=== PATIENT | female | born 1970 | race Caucasian/White ===

== ENCOUNTER → 2018-06-30 16:50 | Outpatient (CLI) | payer OTHER, SELFPAY ==
--- NOTE | 2018-06-30 16:56 | BI_ITS ---
MAMMOGRAPHY - BILATERAL SCREENING REASON FOR EXAM: Female, 48 years old. Routine annual screening examination. PERTINENT HISTORY: Aunt with breast cancer. Bilateral breast implants. TECHNIQUE: Digital bilateral breast swetha (3D mammographic acquisition) in the CC and MLO projections. 2-D mediolateral oblique (MLO) and craniocaudad (CC) views of both breasts were obtained. CAD: Full Field Digital Mammography with Computer Added Detection was performed. COMPARISON: Comparison is made with prior outside examination from October 25, 2016. FINDINGS: Breast Composition: The breasts are heterogeneously dense, which may obscure small masses. There are no dominant masses or suspicious calcifications. Bilateral breast implants are seen. These are new as compared to prior study. No other significant abnormalities are identified. BI/SCREENING MAMM (CAD), BILAT IMPRESSION: Stable bilateral screening mammogram. Yearly follow-up mammogram recommended. (A) ASSESSMENT CATEGORY: BIRADS Category 2: Benign. A letter regarding these results will be sent to the patient by the facility within 30 days. Approximately 10% of breast cancers are not detected by mammography. A normal mammogram should not delay biopsy of a clinically suspicious abnormality. [id number] Electronically Signed: Roland Goyal MD at 14:47 EST Tel [phone], Service support ,
--- OUTSIDE RECORDS SUMMARY | 2018-08-26 09:22 | XMS RPT_ITS ---
:1970 Author Organization [facility] Care Team Providers Name Role Phone MERY KATT Referring Unavailable Xiomara Bryant Attending Unavailable Ras Mukherjee Referring Unavailable MilfordXiomara Attending Unavailable AnnetteXiomara Referring Unavailable MilfordXiomara Attending Unavailable Xiomara Bryant Referring Unavailable Ras Mukherjee Primary Care Unavailable PROBLEMS PROBLEMS DATE TYPE CONDITION / CODE ATTENDING STATUS SOURCE 07/15/2018 Unknown Z12.4 - Xiomara Bryant Active [place] Encounter for Community screening for Hospital malignant Repository neoplasm of cervix / Z12.4(ICD-10) 07/01/2018 Active Other chest pain NA Active 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 [place] [address] OFFICE VISIT Date of Service: 07/15/18 MR#: [id number] Acct: [id number] Name: LISHA MCFARLAND Rep #: [id number] : 1970 Provider: KSENIA Bryant Age/Sex: 48/F Location: [facility] [place] Status: Signed Intake Vital Signs07/15/18 Height 5 ft 2 in 07/15/18 Weight: 131 lb 8 oz 07/15/18 Body Mass Index (BMI) 24.0 07/15/18 Blood Pressure 112/60 Intake Visit Reasons: ANNUAL Chief Complaint: NEW annual Four Slide Operator Required: No Is patient in pain?: No Allergies No Known Allergies Allergy (Unverified 07/15/18 08:16) Medications fexofenadine 180 mg tablet 180 mg PO DAILY 07/15/18 [History Confirmed 07/15/18] montelukast 10 mg tablet 10 mg PO QPM 07/15/18 [History Confirmed 07/15/18] Is last menstrual period known: No Post menopausal: No Patient : No : No PFSH Surgical History uterine ablation (Acute) Family History Father Heart disease Grandmother Colon cancer Unknown Breast cancer Social History Smoking Status: Never smoker alcohol intake: current details: social substance use type: does not use caffeine: Yes what type of physical activity do you participate in: walking seatbelt use: always do you feel safe at home: Yes additional social history: [employer] Patient works at [employer] Pregancy History 2 Elective abortions Hx Para 2 Spontaneous abortions Past Pregnancies Del. DateName GA/Weeks Outcome Route Bth WeighInfant GeLabor LgtAnesthesiDel LocatProvider FOB t n h a n HPI ANNUAL: Details: LISHA MCFARLAND is a 48 year old who presents for new patient annual exam. Had ablation about 6 year ago, continued with very light monthly menses but now no bleeding >1 year. Started with hotflashes and night sweats, started advocare Formula W 2 months ago and no longer having them. OTC lubricant with intercourse prn and beneficial. and denies STD concerns Some arthritic symptoms hands and feet, not every day, mild. Last PAP: unsure History of abnormal PAP: no Last mammogram: 07/01/18 History of abnormal mammogram: no Colon cancer screening: no Female Reproductive History Questions: Metorrhagia: No, Sexually active: Yes, Dyspareunia: No, PCB: No Menopausal Symptoms: Yes hot flashes, Yes night sweats ROS Const Constitutional: Reports night sweats Cardio Card: Denies chest pain Resp Resp: Denies cough or shortness of breath with activity GI GI: Denies abdominal pain, constipation, change in stools, vomiting or bloating : Reports hot flashes Exam Const General: cooperative, healthy appearing, no acute distress, well developed Orientation: alert, oriented to person, oriented to place HENNJ Head: normal to inspection Neck Neck: normal visual inspection Thyroid: thyroid normal Lymphatic: no lymphadenopathy noted Chest Breast inspection: normal inspection of the breasts, normal inspection of the axillae Breast palpation: normal palpation of the breasts, normal palpation of the axillae, no axillary lymphadenopathy Resp Effort AND Inspection: normal respiratory effort GI Palpation: soft, nontender, no masses Rectal Exam: deferred External Female Exam: normal external appearance, normal appearance of the urethra Urethra: normal appearance of the urethra, normal palpation Speculum Exam - Vagina: normal appearance of the vagina, normal vaginal discharge Speculum Exam - Cervix: normal appearance of the cervix Bimanual Exam- Vagina AND Uterus: normal bimanual exam, uterine size normal, uterine shape normal, uterus non-tender Bimanual Exam- Adnexa, other: normal adnexae, no adnexal masses, adnexae non-tender, pelvic support normal Pelvic Support: normal Neuro General: alert, oriented x3 Psych Affect: normal affect Assessment AND Plan Problems 1. Encounter for gynecological examination without abnormal finding Z01.419 2. Menopausal and female climacteric states N95.1 3. Pap smear for cervical cancer screening Z12.4 Plan Completed breast and pelvic exam Reviewed diet and exercise Pap thin prep pap with HPV Mammogram recent I will research ingredients of Formula W and call with any concerns Discussed night sweat triggers. RTO 1 year, prn with problems Xiomara Bryant CNP Coding Level of Care Code Off vis,new,prev 40-64yrs Diagnoses Encounter for gynecological examination without abnormal finding Z01.419 Gynecological examination findings: abnormal findings ABSENT Menopausal and female climacteric states N95.1 Pap smear for cervical cancer screening Z12.4 07/15/18 0915 <Electronically signed by Xiomara Bryant CATERING OPERATIONS MANAGER-C> Date Xiomara Bryant CATERING OPERATIONS MANAGER-C Cosigner Signature: Date (if applicable) CC: PAP IG HPV APTIMA Collected: 07/15/2018 Status: F Source: [place] 16/18,45 8:15 AM [facility] REPOSITORY Order Comment: CYTOLOGY INFORMATION: - CLINICAL INFORMATION: ANNUAL - DATE LMP/MENOPAUSE: - COLLECTION VIAL: Thin Prep Vial - STATISTICIAN THEORETICAL SOURCE: CERVICAL - COLLECTION TECHNIQUE: BRUSH/SPATULA Specimen Comment: [id number] Specimen Comment: Source.............Cervix Specimen Comment: No. of containers..01 ThinPrep Vial TYPE CODE TESTS RESULT OUT OF RANGE REFERENCE UNITS LAB L7400.0800 . Normal DIAGN Comment Result Comment: NEGATIVE FOR INTRAEPITHELIAL LESION AND MALIGNANCY. LAB L7400.0900 . Normal ADEQ Comment Result Comment: Satisfactory for evaluation. No endocervical component is identified. LAB L7400.1400 . Normal PERFORM Comment Result Comment: Katt Gonzalez, Teaching Fellow (ASCP) LAB L7400.2575 . Normal TEST METHOD Comment Result Comment: This liquid based ThinPrep(R) pap test was screened with the use of an image guided system. LAB L7400.2600 . Normal . COMM LAB L7400.2700 . Normal PAPSMR Comment Result Comment: The Pap smear is a screening test designed to aid in the detection of premalignant and malignant conditions of the uterine cervix. It is not a diagnostic procedure and should not be used as the sole means of detecting cervical cancer. Both false-positive and false-negative reports do occur. LAB L7400.2760 Negative Normal HPV APTIMA, Negative HR Result Comment: This test detects fourteen high-risk HPV types (16/18/31/33/35/39/45/ 51/52/56/58/59/66/68) without differentiation. Performed at: [address] [id number] Field Clinical Engineer: Rubina Bah MD, Phone: [phone] Performed at: =G - [facility] [place] [address] [place] [id number] Field Clinical Engineer: Rubina Bah MD, Phone: [phone] Performed By: #### L7400.0280 #### [facility] (refer to report for specific site) refer to report for address and phone number PROGRESS Observed: 07/01/2018 Status: COMPLETED Source: [place] 12:52 PM [facility] REPOSIT[facility] HNO ID: [id number] Author: Katt Giang Service: (none) Author Type: Nurse Practitioner Type: Progress Notes Filed: 07/01/2018 12:55 PM Note Text: Subjective HPI Pt presents with c/o increase chest tightness today while working out at gym. Has had URI sx for about a week. Also hx of asthma. Has been using maintenance inhalers, ran out of albuterol and inhaled steroid. Cough is frequent, moist, nonproductive. +wheezing. Denies fever, chills, myalgias, dyspnea. Review of Systems Constitutional: Negative for chills and fever. HENT: Negative for congestion, ear pain, sinus pain and sore throat. Respiratory: Positive for cough and wheezing. Negative for hemoptysis, sputum production and shortness of breath. Cardiovascular: Negative for chest pain. Objective Physical Exam Constitutional: She is oriented to person, place, and time and well-developed, well-nourished, and in no distress. No distress. HENT: Head: Normocephalic. Right Ear: Hearing, tympanic membrane, external ear and ear canal normal. Left Ear: Hearing, tympanic membrane, external ear and ear canal normal. Nose: Nose normal. Right sinus exhibits no maxillary sinus tenderness and no frontal sinus tenderness. Left sinus exhibits no maxillary sinus tenderness and no frontal sinus tenderness. Mouth/Throat: Uvula is midline, oropharynx is clear and moist and mucous membranes are normal. No oropharyngeal exudate. Eyes: Pupils are equal, round, and reactive to light. Conjunctivae are normal. Right eye exhibits no discharge. Left eye exhibits no discharge. Neck: Neck supple. Cardiovascular: Normal rate, regular rhythm and normal heart sounds. Exam reveals no gallop and no friction rub. No murmur heard. Pulmonary/Chest: Effort normal. No accessory muscle usage. No respiratory distress. She has decreased breath sounds (Good air movement throughout. Pulse ox 98%). She has no wheezes. She has no rhonchi. She has no rales. Lymphadenopathy: She has no cervical adenopathy. Neurological: She is alert and oriented to person, place, and time. Skin: Skin is warm and dry. She is not diaphoretic. BP 102/70 Pulse 71 Temp 36.4 ?C (97.6 ?F) (Tympanic) Resp 18 Wt 59.6 kg (131 lb 6.4 oz) SpO2 97% BMI 24.43 kg/m? .Patient presents with: cough, congestion and SOB: x 1 week-breathing is worse this am PAST MEDICAL HISTORY Diagnosis Date - Anxiety - Asthma - Kidney stones 2011 still 3 remaining, [facility] - Seasonal allergies PAST SURGICAL HISTORY Procedure Laterality Date - OFFICE ENDOMETRIAL ABLATION 01/2012 novasure ablation [facility] [place] ALLERGIES Seasonal Allergies MEDICATIONS fexofenadine HCl (MAYRA 60 MG CAP) Take 1 capsule by mouth once daily. fluticasone (FLONASE) 50 mcg/actuation nasal spray Use 2 Sprays in each nostril once daily. Rinse mouth after use. fluticasone-salmeterol (ADVAIR) 100-50 mcg/dose dsdv Inhale 1 Puff as instructed twice daily. montelukast (SINGULAIR) 10 mg tablet Take 1 tablet by mouth daily at bedtime. albuterol HFA (PROAIR HFA) 90 mcg/actuation inhaler Inhale 2 Puffs as instructed every 4 hours as needed. albuterol HFA (PROVENTIL HFA, VENTOLIN HFA) 90 mcg/actuation inhaler Inhale 2 Puffs as instructed every 6 hours as needed for Wheezing/Shortness of Breath. fluticasone (FLOVENT HFA) 110 mcg/actuation inhaler Inhale 2 Puffs as instructed twice daily. Inhalational Spacing Device spcr 1 Device one time only for 1 dose. predniSONE (DELTASONE) 20 mg tablet Take 2 tablets by mouth once daily for 5 days. Take daily with food. benzonatate (TESSALON PERLE) 100 mg capsule Take 1 capsule by mouth three times daily as needed. guaiFENesin (MUCINEX) 600 mg 12 hr tablet Take 2 tablets by mouth twice daily. benzonatate (TESSALON PERLE) 100 mg capsule Take 2 capsules by mouth three times daily as needed. FAMILY HISTORY Problem Relation Age of Onset - Stroke Father - other (Brain Tumor [Other]) Father Social History Substance Use Topics - Smoking status: Never Smoker - Smokeless tobacco: Never Used - Alcohol use Yes Comment: 2 0r 3 glasses wine or beer a week ASSESSMENT/PLAN: 1. Bronchitis - ICD9: 490, ICD10: J40 (primary diagnosis) - PREDNISONE 20 MG TABLET - BENZONATATE 100 MG CAPSULE - GUAIFENESIN ER 600 MG TABLET, EXTENDED RELEASE 12 HR 2. Chest tightness - ICD9: 786.59, ICD10: R07.89 - XR CHEST 2V FRONTAL/LAT No acute process. 3. Mild intermittent asthma in adult without complication - ICD9: 493.90, ICD10: J45.20 - Albuterol MDI 2 puffs with spacer beginning with URI's TID x 5 days then prn, Instructed if using >2 times per week when well to set up appointment for further evaluation - Avoidance of triggers recommended - ALBUTEROL SULFATE HFA 90 MCG/ACTUATION AEROSOL INHALER - FLUTICASONE 110 MCG/ACTUATION HFA AEROSOL INHALER - INHALATIONAL SPACING DEVICE The patient is instructed to return or seek emergency treatment if symptoms become worse or with any acute change in condition. The patient verbalizes understanding and is in agreement with plan of care. Katt Giang CNP XR CHEST 2V FRONTAL/LAT Observed: 07/01/2018 Status: F Source: [place] 8:23 AM [facility] REPOSITORY * * *Final Report* * * DATE OF EXAM: Jul 01 2018 8:23AM WOX [id number] - XR CHEST 2V FRONTAL/LAT / PROCEDURE REASON: Chest tightness * * * * Physician Interpretation * * * * EXAMINATION: CHEST RADIOGRAPH (2 VIEW FRONTAL and LATERAL) CLINICAL HISTORY: Chest tightness MQ: XC2_5 Comparison: None RESULT: Lines, tubes, and devices: None. Lungs and pleura: No consolidation. No lung mass. No pleural effusion. Cardiomediastinal silhouette: Normal cardiomediastinal silhouette. Other: . IMPRESSION: No acute radiographic abnormality. Fiberglass Model Maker: ÁNGEL Transcribe Date/Time: Jul 01 2018 8:26A Dictated by : JAUN MCMAHON MD This examination was interpreted and the report reviewed and electronically signed by: JAUN MCMAHON MD on Jul 01 2018 8:26AM EST [id number] PROGRESS Observed: 07/01/2018 Status: COMPLETED Source: [place] 8:13 AM [facility] REPOSITORY HNO ID: [id number] Author: Chhaya Winchester (Rt) Esteban Duran Service: (none) Author Type: Polymerization Helper Type: Progress Notes Filed: 07/01/2018 8:23 AM Note Text: Radiology Service Progress Note PATIENT NAME: Lisha Mcfarland DATE OF SERVICE: July 01, 2018 TIME: 8:13 AM PATIENT IDENTITY VERIFICATION COMPLETED USING TWO (2) METHODS: Patient confirmed name verbally and Date of . PATIENT GENDER DATA: Female. status: : No status: NO. PATIENT RELEVANT IMPLANT DATA REVIEWED: Not Applicable RADIOLOGY DEPARTMENT: General X-ray: Exam(s) Completed: Chest X-Ray PERIPHERAL IV DATA: Not applicable SIGNED BY: RT Jm July 01, 2018 8:13 AM CNOV Observed: 07/01/2018 Status: COMPLETED Source: [place] 7:45 AM [facility] REPOSITORY [facility] LISHA MCFARLAND ([id number]) 1970 F Date Time Provider Department 07/01/18 7:45 AM KATT GIANG [facility] During your visit today, we recorded the following information about you: Temperature Pulse Respiration Blood pressure 97.6 degrees 71/minute 18/minute 102/70 Weight 59.6 kg Katt Giang APRN.STATUS CONTROLLER 07/01/2018 8:12 AM Signed [facility] PATIENT INFO BRONCHITIS OVERVIEW Bronchitis develops when there is swelling and irritation of the bronchi, the large tubes that carry air to the lungs. There are two types of bronchitis: acute (sudden onset) and chronic (long-standing). Acute bronchitis often occurs with a viral infection, such as the common cold, and is sometimes called a chest cold. The most common symptom of acute bronchitis is a nagging cough. Treatment of acute bronchitis usually involves treating the symptoms, such as sore throat and congestion. Antibiotics do not help to eliminate acute bronchitis caused by a virus. Antiviral agents are useful in some cases of acute bronchitis due to influenza, but there are antiviral agents for other forms of viral bronchitis. BRONCHITIS CAUSES Most cases of bronchitis are caused by a viral infection of the upper airways, such as the common cold or the flu. Less commonly, a bacterium such as pertussis (whooping cough) is the cause. BRONCHITIS SYMPTOMS The most common symptoms of acute bronchitis include: ? A persistent cough; this may last 10 to 20 days ? Some people cough up mucus, which may be clear, yellow, or green in color Fever is not common in people with acute bronchitis. However, having a fever can be a sign of another condition, such as the flu or pneumonia. Conditions with similar features ? There are other conditions that have symptoms similar to those of acute bronchitis. ? Chronic cough ? A persistent cough that lasts more than eight weeks is considered a chronic cough, which is discussed in detail elsewhere. ? Chronic bronchitis ? Chronic bronchitis is defined as a cough that occurs on most days of the month for at least three months of the year during two consecutive years. ? Pneumonia ? Signs of pneumonia include fever and a fast heart and breathing rate. ? Postnasal drip ? Postnasal drip occurs when secretions drain from the sinuses into the throat. This can cause the throat to feel irritated, which causes you to feel like you need to clear your throat frequently. Postnasal drip can be caused by the common cold, allergies, sinusitis, or environmental irritants. BRONCHITIS DIAGNOSIS Most people who have a persistent cough after an upper respiratory infection (cold) do not need to see a healthcare provider. Diagnostic testing, such as x-rays, cultures, and blood tests, are not usually needed for people with acute bronchitis. However, testing may be recommended if your diagnosis is not clear based upon your examination or if another condition, such as pneumonia, is suspected. When to seek help ? You should call your healthcare provider if you have any of the following: ? Fever (temperature greater than 100.4? F or 38? C) ? A cough that lasts longer than 10 days ? Chest pain with coughing, difficulty breathing, or coughing up blood ? A barking cough that makes it hard to speak, especially if it persists ? Cough accompanied by unexplained weight loss People who are older than 75 do not always have a fever or other concerning symptoms. If you are over 75 years and you have a persistent cough, you should call your clinician to determine if and when an office visit is recommended. BRONCHITIS TREATMENT Relief of symptoms ? There is no specific treatment for bronchitis, but there are a few treatments available for the common cold. ? A nonsteroidal antiinflammatory drug (ibuprofen, naproxen), aspirin, or acetaminophen (Tylenol?) can help to relieve the pain of a sore throat or headache. ? Pseudoephedrine is a decongestant that can improve nasal congestion. Most drugstores in the [place] carry pseudoephedrine behind the counter, so you must ask for it from the pharmacist (a prescription is not required). Other decongestants, such as phenylephrine, are not as effective as pseudoephedrine. Antihistamines such as diphenhydramine (Benadryl?) may also help, but can cause side effects such as drowsiness and drying of the eyes, nose, and mouth. ? Heated, humidified, air can improve symptoms of nasal congestion and runny nose, and has few to no side effects. ? Cough suppressants such as dextromethorphan may be helpful. Antibiotics ? Antibiotics are NOT helpful for most people with bronchitis since the illness is typically caused by a virus. Antibiotics treat bacterial, not viral infections. Antibiotics may be helpful for some patients with other chronic diseases. Many people request antibiotics in the hopes that it will get rid of the cough, and some people even think that antibiotics have helped on previous occasions. However, there is no benefit of antibiotics for most cases of bronchitis. PREVENTING THE SPREAD OF ILLNESS Hand washing is an essential and highly effective way to prevent the spread of infection. Wet your hands with water and plain soap and rub them together for 15 to 30 seconds. Pay special attention to the fingernails, between the fingers, and the wrists. Rinse your hands thoroughly, and dry with a single use towel. Alcohol-based hand rubs are a good alternative for disinfecting hands if a sink is not available. Spread the hand rub over the entire surface of your hands, fingers, and wrists until dry. You can use hand rubs repeatedly without irritating the skin or losing effectiveness. Hand rubs are available as a liquid or wipe in small, portable sizes that are easy to carry in a pocket or handbag. When a sink is available, you should wash visibly soiled hands with soap and water. Wash your hands before preparing food and eating, and after going to the bathroom, and after coughing, blowing the nose, or sneezing. While it is not always possible to limit contact with people who are ill, avoid touching your eyes, nose, or mouth after direct contact, when possible. In addition, use a tissue to cover your mouth when sneezing or coughing. Throw away used tissues promptly and then wash your hands. Sneezing/coughing into the sleeve of your clothing (at the inner elbow) is another way of containing sprays of saliva and secretions and does not contaminate your hands. Sneezing and coughing without covering your mouth can spread infection to anyone within 6 feet. Katt Giang APRN.STATUS CONTROLLER 07/01/2018 12:55 PM Signed Subjective HPI Pt presents with c/o increase chest tightness today while working out at gym. Has had URI sx for about a week. Also hx of asthma. Has been using maintenance inhalers, ran out of albuterol and inhaled steroid. Cough is frequent, moist, nonproductive. +wheezing. Denies fever, chills, myalgias, dyspnea. Review of Systems Constitutional: Negative for chills and fever. HENT: Negative for congestion, ear pain, sinus pain and sore throat. Respiratory: Positive for cough and wheezing. Negative for hemoptysis, sputum production and shortness of breath. Cardiovascular: Negative for chest pain. Objective Physical Exam Constitutional: She is oriented to person, place, and time and well-developed, well-nourished, and in no distress. No distress. HENT: Head: Normocephalic. Right Ear: Hearing, tympanic membrane, external ear and ear canal normal. Left Ear: Hearing, tympanic membrane, external ear and ear canal normal. Nose: Nose normal. Right sinus exhibits no maxillary sinus tenderness and no frontal sinus tenderness. Left sinus exhibits no maxillary sinus tenderness and no frontal sinus tenderness. Mouth/Throat: Uvula is midline, oropharynx is clear and moist and mucous membranes are normal. No oropharyngeal exudate. Eyes: Pupils are equal, round, and reactive to light. Conjunctivae are normal. Right eye exhibits no discharge. Left eye exhibits no discharge. Neck: Neck supple. Cardiovascular: Normal rate, regular rhythm and normal heart sounds. Exam reveals no gallop and no friction rub. No murmur heard. Pulmonary/Chest: Effort normal. No accessory muscle usage. No respiratory distress. She has decreased breath sounds (Good air movement throughout. Pulse ox 98%). She has no wheezes. She has no rhonchi. She has no rales. Lymphadenopathy: She has no cervical adenopathy. Neurological: She is alert and oriented to person, place, and time. Skin: Skin is warm and dry. She is not diaphoretic. BP 102/70 Pulse 71 Temp 36.4 ?C (97.6 ?F) (Tympanic) Resp 18 Wt 59.6 kg (131 lb 6.4 oz) SpO2 97% BMI 24.43 kg/m? .Patient presents with: cough, congestion and SOB: x 1 week-breathing is worse this am PAST MEDICAL HISTORY Diagnosis Date - Anxiety - Asthma - Kidney stones 2011 still 3 remaining, [facility] - Seasonal allergies PAST SURGICAL HISTORY Procedure Laterality Date - OFFICE ENDOMETRIAL ABLATION 01/2012 novasure ablation [facility] ALLERGIES Seasonal Allergies MEDICATIONS fexofenadine HCl (MAYRA 60 MG CAP) Take 1 capsule by mouth once daily. fluticasone (FLONASE) 50 mcg/actuation nasal spray Use 2 Sprays in each nostril once daily. Rinse mouth after use. fluticasone-salmeterol (ADVAIR) 100-50 mcg/dose dsdv Inhale 1 Puff as instructed twice daily. montelukast (SINGULAIR) 10 mg tablet Take 1 tablet by mouth daily at bedtime. albuterol HFA (PROAIR HFA) 90 mcg/actuation inhaler Inhale 2 Puffs as instructed every 4 hours as needed. albuterol HFA (PROVENTIL HFA, VENTOLIN HFA) 90 mcg/actuation inhaler Inhale 2 Puffs as instructed every 6 hours as needed for Wheezing/Shortness of Breath. fluticasone (FLOVENT HFA) 110 mcg/actuation inhaler Inhale 2 Puffs as instructed twice daily. Inhalational Spacing Device spcr 1 Device one time only for 1 dose. predniSONE (DELTASONE) 20 mg tablet Take 2 tablets by mouth once daily for 5 days. Take daily with food. benzonatate (TESSALON PERLE) 100 mg capsule Take 1 capsule by mouth three times daily as needed. guaiFENesin (MUCINEX) 600 mg 12 hr tablet Take 2 tablets by mouth twice daily. benzonatate (TESSALON PERLE) 100 mg capsule Take 2 capsules by mouth three times daily as needed. FAMILY HISTORY Problem Relation Age of Onset - Stroke Father - other (Brain Tumor [Other]) Father Social History Substance Use Topics - Smoking status: Never Smoker - Smokeless tobacco: Never Used - Alcohol use Yes Comment: 2 0r 3 glasses wine or beer a week ASSESSMENT/PLAN: 1. Bronchitis - ICD9: 490, ICD10: J40 (primary diagnosis) - PREDNISONE 20 MG TABLET - BENZONATATE 100 MG CAPSULE - GUAIFENESIN ER 600 MG TABLET, EXTENDED RELEASE 12 HR 2. Chest tightness - ICD9: 786.59, ICD10: R07.89 - XR CHEST 2V FRONTAL/LAT No acute process. 3. Mild intermittent asthma in adult without complication - ICD9: 493.90, ICD10: J45.20 - Albuterol MDI 2 puffs with spacer beginning with URI's TID x 5 days then prn, Instructed if using >2 times per week when well to set up appointment for further evaluation - Avoidance of triggers recommended - ALBUTEROL SULFATE HFA 90 MCG/ACTUATION AEROSOL INHALER - FLUTICASONE 110 MCG/ACTUATION HFA AEROSOL INHALER - INHALATIONAL SPACING DEVICE The patient is instructed to return or seek emergency treatment if symptoms become worse or with any acute change in condition. The patient verbalizes understanding and is in agreement with plan of care. Katt Giang CNP Referring Provider: SELF [[id number]] Allergies As of Date: 07/01/2018 Noted Allergy Reaction SEASONAL ALLERGIES 05/15/2018 14 - Other: See Comments Comments: Sneezing, SOB Date Reviewed: 07/01/2018 Reviewed by: Melissa Daniels LPN - Fully Assessed Reason for Visit: cough, congestion and SOB [Other] Cmt: x 1 week-breathing is worse this am Primary Visit Diagnosis:Bronchitis [J40] Other Visit Diagnoses:Chest tightness [R07.89] Mild intermittent asthma in adult without complication [J45.20] Order(s):albuterol HFA (PROVENTIL HFA, VENTOLIN HFA) 90 mcg/actuation inhalerInhale 2 Puffs as instructed every 6 hours as needed for Wheezing/Shortness of Breath.Disp: 1 InhalerRfl: 0 fluticasone (FLOVENT HFA) 110 mcg/actuation inhalerInhale 2 Puffs as instructed twice daily.Disp: 1 InhalerRfl: 5 XR CHEST 2V FRONTAL/LAT [[id number]] Order #: [id number] FUTURE Inhalational Spacing Device spcr1 Device one time only for 1 dose.Disp: 1 EachRfl: 0 predniSONE (DELTASONE) 20 mg tabletTake 2 tablets by mouth once daily for 5 days. Take daily with food.Disp: 10 tabletRfl: 0 benzonatate (TESSALON PERLE) 100 mg capsuleTake 1 capsule by mouth three times daily as needed.Disp: 60 capsuleRfl: 0 guaiFENesin (MUCINEX) 600 mg 12 hr tabletTake 2 tablets by mouth twice daily.Disp: 30 tabletRfl: 0 Prescriptions as of 07/01/2018 Sig: MAYRA 60 MG CAP Take 1 capsule by mouth once * FLUTICASONE 50 MCG/ACTUATION * Use 2 Sprays in each nostril * FLUTICASONE 100 MCG-SALMETERO* Inhale 1 Puff as instructed t* MONTELUKAST 10 MG TABLET Take 1 tablet by mouth daily * ALBUTEROL SULFATE HFA 90 MCG/* Inhale 2 Puffs as instructed * ALBUTEROL SULFATE HFA 90 MCG/* Inhale 2 Puffs as instructed * FLUTICASONE 110 MCG/ACTUATION* Inhale 2 Puffs as instructed * INHALATIONAL SPACING DEVICE 1 Device one time only for 1 * PREDNISONE 20 MG TABLET Take 2 tablets by mouth once * BENZONATATE 100 MG CAPSULE Take 1 capsule by mouth three* GUAIFENESIN ER 600 MG TABLET,* Take 2 tablets by mouth twice* BENZONATATE 100 MG CAPSULE Take 2 capsules by mouth thre* Patient not taking: Reported on 12/07/2017 Problem List As Of Date 07/01/2018 Noted Resolved Asthma in adult [J45.909] INVALID FOR* Allergic rhinitis [J30.9] INVALID FOR* Anxiety [F41.9] INVALID FOR* Mood swings [R45.86] INVALID FOR* Other instructions from your clinician: EXPRESS CARE PATIENT INFO BRONCHITIS OVERVIEW Bronchitis develops when there is swelling and irritation of the bronchi, the large tubes that carry air to the lungs. There are two types of bronchitis: acute (sudden onset) and chronic (long-standing). Acute bronchitis often occurs with a viral infection, such as the common cold, and is sometimes called a chest cold. The most common symptom of acute bronchitis is a nagging cough. Treatment of acute bronchitis usually involves treating the symptoms, such as sore throat and congestion. Antibiotics do not help to eliminate acute bronchitis caused by a virus. Antiviral agents are useful in some cases of acute bronchitis due to influenza, but there are antiviral agents for other forms of viral bronchitis. BRONCHITIS CAUSES Most cases of bronchitis are caused by a viral infection of the upper airways, such as the common cold or the flu. Less commonly, a bacterium such as pertussis (whooping cough) is the cause. BRONCHITIS SYMPTOMS The most common symptoms of acute bronchitis include: ? A persistent cough; this may last 10 to 20 days ? Some people cough up mucus, which may be clear, yellow, or green in color Fever is not common in people with acute bronchitis. However, having a fever can be a sign of another condition, such as the flu or pneumonia. Conditions with similar features ? There are other conditions that have symptoms similar to those of acute bronchitis. ? Chronic cough ? A persistent cough that lasts more than eight weeks is considered a chronic cough, which is discussed in detail elsewhere. ? Chronic bronchitis ? Chronic bronchitis is defined as a cough that occurs on most days of the month for at least three months of the year during two consecutive years. ? Pneumonia ? Signs of pneumonia include fever and a fast heart and breathing rate. ? Postnasal drip ? Postnasal drip occurs when secretions drain from the sinuses into the throat. This can cause the throat to feel irritated, which causes you to feel like you need to clear your throat frequently. Postnasal drip can be caused by the common cold, allergies, sinusitis, or environmental irritants. BRONCHITIS DIAGNOSIS Most people who have a persistent cough after an upper respiratory infection (cold) do not need to see a healthcare provider. Diagnostic testing, such as x-rays, cultures, and blood tests, are not usually needed for people with acute bronchitis. However, testing may be recommended if your diagnosis is not clear based upon your examination or if another condition, such as pneumonia, is suspected. When to seek help ? You should call your healthcare provider if you have any of the following: ? Fever (temperature greater than 100.4? F or 38? C) ? A cough that lasts longer than 10 days ? Chest pain with coughing, difficulty breathing, or coughing up blood ? A barking cough that makes it hard to speak, especially if it persists ? Cough accompanied by unexplained weight loss People who are older than 75 do not always have a fever or other concerning symptoms. If you are over 75 years and you have a persistent cough, you should call your clinician to determine if and when an office visit is recommended. BRONCHITIS TREATMENT Relief of symptoms ? There is no specific treatment for bronchitis, but there are a few treatments available for the common cold. ? A nonsteroidal antiinflammatory drug (ibuprofen, naproxen), aspirin, or acetaminophen (Tylenol?) can help to relieve the pain of a sore throat or headache. ? Pseudoephedrine is a decongestant that can improve nasal congestion. Most drugstores in the [place] carry pseudoephedrine behind the counter, so you must ask for it from the pharmacist (a prescription is not required). Other decongestants, such as phenylephrine, are not as effective as pseudoephedrine. Antihistamines such as diphenhydramine (Benadryl?) may also help, but can cause side effects such as drowsiness and drying of the eyes, nose, and mouth. ? Heated, humidified, air can improve symptoms of nasal congestion and runny nose, and has few to no side effects. ? Cough suppressants such as dextromethorphan may be helpful. Antibiotics ? Antibiotics are NOT helpful for most people with bronchitis since the illness is typically caused by a virus. Antibiotics treat bacterial, not viral infections. Antibiotics may be helpful for some patients with other chronic diseases. Many people request antibiotics in the hopes that it will get rid of the cough, and some people even think that antibiotics have helped on previous occasions. However, there is no benefit of antibiotics for most cases of bronchitis. PREVENTING THE SPREAD OF ILLNESS Hand washing is an essential and highly effective way to prevent the spread of infection. Wet your hands with water and plain soap and rub them together for 15 to 30 seconds. Pay special attention to the fingernails, between the fingers, and the wrists. Rinse your hands thoroughly, and dry with a single use towel. Alcohol-based hand rubs are a good alternative for disinfecting hands if a sink is not available. Spread the hand rub over the entire surface of your hands, fingers, and wrists until dry. You can use hand rubs repeatedly without irritating the skin or losing effectiveness. Hand rubs are available as a liquid or wipe in small, portable sizes that are easy to carry in a pocket or handbag. When a sink is available, you should wash visibly soiled hands with soap and water. Wash your hands before preparing food and eating, and after going to the bathroom, and after coughing, blowing the nose, or sneezing. While it is not always possible to limit contact with people who are ill, avoid touching your eyes, nose, or mouth after direct contact, when possible. In addition, use a tissue to cover your mouth when sneezing or coughing. Throw away used tissues promptly and then wash your hands. Sneezing/coughing into the sleeve of your clothing (at the inner elbow) is another way of containing sprays of saliva and secretions and does not contaminate your hands. Sneezing and coughing without covering your mouth can spread infection to anyone within 6 feet. Prescriptions ordered this encounter Disp Refills Start End ALBUTEROL SULFATE HFA 90 MCG/ACTUATI* 1 In* 0 07/01/2018 Route: INHALATION Sig: Inhale 2 Puffs as instructed every 6 hours as needed for Wheezing/Shortness of Breath. FLUTICASONE 110 MCG/ACTUATION HFA AE* 1 In* 5 07/01/2018 Route: INHALATION Sig: Inhale 2 Puffs as instructed twice daily. INHALATIONAL SPACING DEVICE 1 Ea* 0 07/01/2018 07/01/2018 [facility]: [facility] Device one time only for 1 dose. PREDNISONE 20 MG TABLET 10 t* 0 07/01/2018 07/06/2018 Route: ORAL Sig: Take 2 tablets by mouth once daily for 5 days. Take daily with food. BENZONATATE 100 MG CAPSULE 60 c* 0 07/01/2018 Route: ORAL Sig: Take 1 capsule by mouth three times daily as needed. GUAIFENESIN ER 600 MG TABLET, EXTEND* 30 t* 0 07/01/2018 Route: ORAL Sig: Take 2 tablets by mouth twice daily. Encounter Status:Closed by KATT GIANG CNP on 07/01/18 SCREENING MAMM (CAD), Observed: 06/30/2018 Status: F Source: ALIYAH BILAT 4:56 PM [facility] [place] REPOSITORY [facility] Imaging Services [address] [place] [address] SCREENING MAMM (CAD), BILAT MR#: [id number] Acct: [id number] Name: LISHA MCFARLAND Rep #: [id number] : 1970 F 48 From: Roland Goyal MD PCP: Ras Almeida DO Status: REG CLI Study: SCREENING MAMM (CAD), BILAT Date of Exam: 06/30/18 Exam# [id number] Ordering Dr: Xiomara Bryant CATERING OPERATIONS MANAGER-C MAMMOGRAPHY - BILATERAL SCREENING REASON FOR EXAM: Female, 48 years old. Routine annual screening examination. PERTINENT HISTORY: Aunt with breast cancer. Bilateral breast implants. TECHNIQUE: Digital bilateral breast swetha (3D mammographic acquisition) in the CC and MLO projections. 2-D mediolateral oblique (MLO) and craniocaudad (CC) views of both breasts were obtained. CAD: Full Field Digital Mammography with Computer Added Detection was performed. COMPARISON: Comparison is made with prior outside examination from October 25, 2016. FINDINGS: Breast Composition: The breasts are heterogeneously dense, which may obscure small masses. There are no dominant masses or suspicious calcifications. Bilateral breast implants are seen. These are new as compared to prior study. No other significant abnormalities are identified. BI/SCREENING MAMM (CAD), BILAT IMPRESSION: Stable bilateral screening mammogram. Yearly follow-up mammogram recommended. (A) ASSESSMENT CATEGORY: BIRADS Category 2: Benign. A letter regarding these results will be sent to the patient by the facility within 30 days. Approximately 10% of breast cancers are not detected by mammography. A normal mammogram should not delay biopsy of a clinically suspicious abnormality. [id number] Electronically Signed: Roland Goyal MD at 14:47 EST Tel [phone], Service support , CC: KSENIA Bryant; Ras Almeida DO Fiberglass Model Maker: Signed PROGRESS Observed: 05/15/2018 Status: COMPLETED Source: [place] 1:11 PM [facility] REPOSITORY [facility]NO ID: [id number] Author: Demetrice Bach Service: (none) Author Type: Physician Aerophysicist Type: Progress Notes Filed: 05/15/2018 1:55 PM Note Text: 05/15/2018 Patient presents with: Sinusitis: x today SUBJECTIVE: This is a 47 year old that is here today for Complaint(s) of sinus burning and pressure x this morning. + mild right ear discomfort. Eyes feel puffy this morning. Also has a hx of allergies- currently on mayra and singulair. + nasal drainage throughout the night. No new makeup, foods, products. No matting/crusting, itching, vision changes. Denies fever/chills, cough, dental pain, SOb, wheezing. PAST MEDICAL HISTORY Diagnosis Date - Anxiety - Asthma - Kidney stones 2011 still 3 remaining, [facility] - Seasonal allergies ALLERGIES Seasonal Allergies MEDICATIONS Current Outpatient Prescriptions: fexofenadine HCl (MAYRA 60 MG CAP) Take 1 capsule by mouth once daily. fluticasone-salmeterol (ADVAIR) 100-50 mcg/dose dsdv Inhale 1 Puff as instructed twice daily. montelukast (SINGULAIR) 10 mg tablet Take 1 tablet by mouth daily at bedtime. albuterol HFA (PROAIR HFA) 90 mcg/actuation inhaler Inhale 2 Puffs as instructed every 4 hours as needed. benzonatate (TESSALON PERLE) 100 mg capsule Take 2 capsules by mouth three times daily as needed. (Patient not taking: Reported on 12/07/2017 ) No current facility-administered medications for this visit. SOCIAL HISTORY Social History Marital status: Spouse name: Years of education: Number of children: Social History Main Topics Smoking status: Never Smoker Smokeless tobacco: Never Used Alcohol use: Yes Comment: 2 0r 3 glasses wine or beer a week Social History Narrative , 2 teenage daughters (Ras and Faith) REVIEW OF SYSTEMS All other reviewed and negative other than HPI. OBJECTIVE: BP 112/68 Pulse 63 Temp 36.8 ?C (98.2 ?F) (Left Tympanic) Resp 16 Wt 56.5 kg (124 lb 9.6 oz) SpO2 98% BMI 23.16 kg/m? APPEARANCE Well appearing, alert, in no acute distress, well-hydrated, well nourished. EYES PERRLA, conjunctiva and sclera normal. EARS External ears normal, canals clear. TMs normal CHRISTIN. Mild edema inferior to lower eyelids CHRISTIN. No erythema or warmth. NOSE/SINUS Nares normal. Septum midline. Mucosa normal. No drainage or sinus tenderness. THROAT normal, no erythema NECK Supple, no adenopathy; HEART RRR with normal S1 and S2, LUNG clear to auscultation, No wheezing, rhonchi, rales. ASSESSMENT/PLAN: 1. Acute maxillary sinusitis, recurrence not specified - ICD9: 461.0, ICD10: J01.00 1 day of symptoms, discussed probable viral etiology, Reviewed red flags and when to seek care sooner. - The patient should also be given OTC cough and cold meds as needed, behind the counter Pseudoephedrine, warm salt water gargles, throat lozenges and/or OTC throat spray as needed and nasal saline gtts and suction prn for the first 5-7 days of treatment. - Supportive care with plenty of fluids, rest, and analgesia prn. - Follow up in 3-5 days if symptoms persist or worsen. - FLUTICASONE 50 MCG/ACTUATION NASAL SPRAY,SUSPENSION Reviewed red flags and when to seek care sooner. The patient indicates understanding of these issues and agrees with the plan. IZZY Douglass Observed: 05/15/2018 Status: COMPLETED Source: [place] 1:00 PM [facility] REPOSITORY [facility] LISHA MCFARLAND ([id number]) 1970 F Date Time Provider Department 05/15/18 1:00 PM DEMETRICE BACH) [facility] During your visit today, we recorded the following information about you: Temperature Pulse Respiration Blood pressure 98.2 degrees 63/minute 16/minute 112/68 Weight 56.5 kg Demetrice Bach PA-C 05/15/2018 1:55 PM Signed 05/15/2018 Patient presents with: Sinusitis: x today SUBJECTIVE: This is a 47 year old that is here today for Complaint(s) of sinus burning and pressure x this morning. + mild right ear discomfort. Eyes feel puffy this morning. Also has a hx of allergies-currently on mayra and singulair. + nasal drainage throughout the night. No new makeup, foods, products. No matting/crusting, itching, vision changes. Denies fever/chills, cough, dental pain, SOb, wheezing. PAST MEDICAL HISTORY Diagnosis Date - Anxiety - Asthma - Kidney stones 2011 still 3 remaining, [facility] - Seasonal allergies ALLERGIES Seasonal Allergies MEDICATIONS Current Outpatient Prescriptions: fexofenadine HCl (MAYRA 60 MG CAP) Take 1 capsule by mouth once daily. fluticasone-salmeterol (ADVAIR) 100-50 mcg/dose dsdv Inhale 1 Puff as instructed twice daily. montelukast (SINGULAIR) 10 mg tablet Take 1 tablet by mouth daily at bedtime. albuterol HFA (PROAIR HFA) 90 mcg/actuation inhaler Inhale 2 Puffs as instructed every 4 hours as needed. benzonatate (TESSALON PERLE) 100 mg capsule Take 2 capsules by mouth three times daily as needed. (Patient not taking: Reported on 12/07/2017 ) No current facility-administered medications for this visit. SOCIAL HISTORY Social History Marital status: Spouse name: Years of education: Number of children: Social History Main Topics Smoking status: Never Smoker Smokeless tobacco: Never Used Alcohol use: Yes Comment: 2 0r 3 glasses wine or beer a week Social History Narrative , 2 teenage daughters (Ras and Faith) REVIEW OF SYSTEMS All other reviewed and negative other than HPI. OBJECTIVE: BP 112/68 Pulse 63 Temp 36.8 ?C (98.2 ?F) (Left Tympanic) Resp 16 Wt 56.5 kg (124 lb 9.6 oz) SpO2 98% BMI 23.16 kg/m? APPEARANCE Well appearing, alert, in no acute distress, well- hydrated, well nourished. EYES PERRLA, conjunctiva and sclera normal. EARS External ears normal, canals clear. TMs normal CHRISTIN. Mild edema inferior to lower eyelids CHRISTIN. No erythema or warmth. NOSE/SINUS Nares normal. Septum midline. Mucosa normal. No drainage or sinus tenderness. THROAT normal, no erythema NECK Supple, no adenopathy; HEART RRR with normal S1 and S2, LUNG clear to auscultation, No wheezing, rhonchi, rales. ASSESSMENT/PLAN: 1. Acute maxillary sinusitis, recurrence not specified - ICD9: 461.0, ICD10: J01.00 1 day of symptoms, discussed probable viral etiology, Reviewed red flags and when to seek care sooner. - The patient should also be given OTC cough and cold meds as needed, behind the counter Pseudoephedrine, warm salt water gargles, throat lozenges and/or OTC throat spray as needed and nasal saline gtts and suction prn for the first 5-7 days of treatment. - Supportive care with plenty of fluids, rest, and analgesia prn. - Follow up in 3-5 days if symptoms persist or worsen. - FLUTICASONE 50 MCG/ACTUATION NASAL SPRAY,SUSPENSION Reviewed red flags and when to seek care sooner. The patient indicates understanding of these issues and agrees with the plan. Demetrice Bach PA-C Referring Provider: SELF [200] Allergies As of Date: 05/15/2018 Noted Allergy Reaction SEASONAL ALLERGIES 05/15/2018 14 - Other: See Comments Comments: Sneezing, SOB Date Reviewed: 12/07/2017 Reviewed by: Earnestine Castro Ma - Fully Assessed Reason for Visit: Sinusitis [127] Cmt: x today Primary Visit Diagnosis:Acute maxillary sinusitis, recurrence not specified [J01.00] Order(s):fluticasone (FLONASE) 50 mcg/actuation nasal sprayUse 2 Sprays in each nostril once daily. Rinse mouth after use.Disp: 1 BottleRfl: 0 Prescriptions as of 05/15/2018 Sig: MAYRA 60 MG CAP Take 1 capsule by mouth once * FLUTICASONE 100 MCG-SALMETERO* Inhale 1 Puff as instructed t* MONTELUKAST 10 MG TABLET Take 1 tablet by mouth daily * ALBUTEROL SULFATE HFA 90 MCG/* Inhale 2 Puffs as instructed * FLUTICASONE 50 MCG/ACTUATION * Use 2 Sprays in each nostril * BENZONATATE 100 MG CAPSULE Take 2 capsules by mouth thre* Patient not taking: Reported on 12/07/2017 Problem List As Of Date 05/15/2018 Noted Resolved Asthma in adult [J45.909] INVALID FOR* Allergic rhinitis [J30.9] INVALID FOR* Anxiety [F41.9] INVALID FOR* Mood swings [R45.86] INVALID FOR* Prescriptions ordered this encounter Disp Refills Start End FLUTICASONE 50 MCG/ACTUATION NASAL S* 1 Juan M* 0 05/15/2018 Route: EACH NOSTRIL Sig: Use 2 Sprays in each nostril once daily. Rinse mouth after use. Encounter Status:Closed by DEMETRICE BACH PA-C on 05/15/18 PROGRESS Observed: 12/07/2017 Status: COMPLETED Source: [place] 11:15 AM [facility] [place] REPOSITORY [facility] ID: [id number] Author: Flory Dennis (Rehabilitation Nurse) Service: (none) Author Type: Nurse Practitioner Type: Progress Notes Filed: 12/07/2017 12:19 PM Note Text: CC: Patient presents with: URI: causing difficulty breathing; x 5 days; HX of ASTHMA HPI: Lisha Mcfarland is a 47 year old female who presents to the office with complaint of respiratory symptoms for 5 days. Symptoms are worsening Associated symptoms includes nasal congestion, rhinorrhea, facial pain/pressure, headache, body aches, cough, wheezing, dyspnea and fatigue. Denies fever. Treatments tried include OTC cold medicine with no relief of symptoms. Sick contacts: unknown. History of asthma, frequent episodes of bronchitis, chronic bronchitis, bronchiectasis or COPD: Yes asthma Smoker: No Seasonal/environmental allergies: Yes. Currently taking Mayra and Singulair. The ROS is otherwise negative. The patient's pmh, medications, allergies, and past visits are reviewed. PHYSICAL EXAM: BP 98/62 (BP Site: Left Arm, BP Position: Sitting, BP Cuff Size: Regular Adult) Pulse 68 Temp 36.9 ?C (98.4 ?F) (Left Tympanic) Resp 16 Wt 58.6 kg (129 lb 3.2 oz) SpO2 98% BMI 24.02 kg/m? General appearance: tired/ill appearing, in no acute distress Head: Normocephalic Eyes: conjunctiva pink and moist, no icterus, sclera white, non-injected Ears: Right ear: External ear/canal- Normal, TM - clear with good landmarks. Left ear: External ear/canal- Normal, TM - clear with good landmarks Nose: clear rhinorrhea, mucosa erythematous and swollen, no sinus tenderness. Oropharynx:No erythema, exudates or tonsillar hypertrophy. Neck:supple, no adenopthy Heart: Negative. RRR without obvious murmur, gallop, or rubs. No ectopy. Lungs: clear to auscultation, without rales or wheeze, good air exchange ASSESSMENT/PLAN: 1. Viral URI - ICD9: 465.9, ICD10: J06.9 (primary diagnosis) - Discussed viral etiology and rationale for treatment. - Symptomatic treatment with prn analgesia - Supportive care with fluids and rest - The patient may also use OTC cough and cold meds as needed. - Follow up in 3-5 days if symptoms persist or sooner if worsening of symptoms 2. Asthma with acute exacerbation, unspecified asthma severity, unspecified whether persistent - ICD9: 493.92, ICD10: J45.901 Exacerbation caused by viral URI - Exacerbation treatment of Prednisone burst- see orders - Follow-up as above Prescription instructions reviewed with patient as applicable. Potential red flag symptoms discussed with the patient. Reviewed appropriate action plan to take if red flag symptoms occur. Patient agreeable to treatment plan. Flory Dennis APRN.SANDIE BOSWELL Observed: 12/07/2017 Status: COMPLETED Source: [place] 11:00 AM [facility] REPOSITORY [facility] LISHA MCFARLAND ([id number]) 1970 F Date Time Provider Department 12/07/17 11:00 AM OLDER, FLORY LOPEZ) [facility] During your visit today, we recorded the following information about you: Temperature Pulse Respiration Blood pressure 98.4 degrees 68/minute 16/minute 98/62 Weight 58.6 kg Older Folry Lopez) 12/07/2017 12:19 PM Signed CC: Patient presents with: URI: causing difficulty breathing; x 5 days; HX of ASTHMA HPI: Lisha Mcfarland is a 47 year old female who presents to the office with complaint of respiratory symptoms for 5 days. Symptoms are worsening Associated symptoms includes nasal congestion, rhinorrhea, facial pain/pressure, headache, body aches, cough, wheezing, dyspnea and fatigue. Denies fever. Treatments tried include OTC cold medicine with no relief of symptoms. Sick contacts: unknown. History of asthma, frequent episodes of bronchitis, chronic bronchitis, bronchiectasis or COPD: Yes asthma Smoker: No Seasonal/environmental allergies: Yes. Currently taking Mayra and Singulair. The ROS is otherwise negative. The patient's pmh, medications, allergies, and past visits are reviewed. PHYSICAL EXAM: BP 98/62 (BP Site: Left Arm, BP Position: Sitting, BP Cuff Size: Regular Adult) Pulse 68 Temp 36.9 ?C (98.4 ?F) (Left Tympanic) Resp 16 Wt 58.6 kg (129 lb 3.2 oz) SpO2 98% BMI 24.02 kg/m? General appearance: tired/ill appearing, in no acute distress Head: Normocephalic Eyes: conjunctiva pink and moist, no icterus, sclera white, non-injected Ears: Right ear: External ear/canal- Normal, TM - clear with good landmarks. Left ear: External ear/canal- Normal, TM - clear with good landmarks Nose: clear rhinorrhea, mucosa erythematous and swollen, no sinus tenderness. Oropharynx:No erythema, exudates or tonsillar hypertrophy. Neck:supple, no adenopthy Heart: Negative. RRR without obvious murmur, gallop, or rubs. No ectopy. Lungs: clear to auscultation, without rales or wheeze, good air exchange ASSESSMENT/PLAN: 1. Viral URI - ICD9: 465.9, ICD10: J06.9 (primary diagnosis) - Discussed viral etiology and rationale for treatment. - Symptomatic treatment with prn analgesia - Supportive care with fluids and rest - The patient may also use OTC cough and cold meds as needed. - Follow up in 3-5 days if symptoms persist or sooner if worsening of symptoms 2. Asthma with acute exacerbation, unspecified asthma severity, unspecified whether persistent - ICD9: 493.92, ICD10: J45.901 Exacerbation caused by viral URI - Exacerbation treatment of Prednisone burst- see orders - Follow-up as above Prescription instructions reviewed with patient as applicable. Potential red flag symptoms discussed with the patient. Reviewed appropriate action plan to take if red flag symptoms occur. Patient agreeable to treatment plan. Flory Dennis APRN.Flory Ruvalcaba (Sandie) 12/07/2017 11:20 AM Signed Here is some cold and flu information to help ease your symptoms: 1.) Get more rest than you usually do - this will speed your recovery. If you push hard with your usual busy schedule, you will be sicker longer. 2.) Drink a lot of water - enough to make you urinate every 2-3 hours (your urine should be a light yellow color). This helps thin the phlegm and sooth the airways. Gatorade (G2) is less in sugar and replaces your electrolytes if not eating well. 3.) Run a cool mist humidifier in your bedroom on high with the door closed. This is a natural way to decongest, and it helps lessen scratchy throats, nasal stuffiness and coughs. 4.) For those without blood pressure concerns, take over the counter combination medication such as Tylenol cold and flu. Those with high blood pressure and not with prostate problems can try [id number] Coricidin HBP for congestion. 5) For nasal congestion, sinus pain/pressure: Nasal spray such as Flonase of Nasacort, available over the counter General information: * Green or yellow color does not mean you need an antibiotic; secretions can be green or yellow with viruses, such as the common cold * The average cold lasts 6-12 days. If you are not improving or are worsening by day 10 of symptoms follow up with the office Referring Provider: SELF [[id number]] Allergies As of Date: 12/07/2017 (No Known Allergies) Date Reviewed: 12/07/2017 Reviewed by: Earnestine Castro Ma - Fully Assessed Reason for Visit: URI [115] Cmt: causing difficulty breathing; x 5 days; HX of ASTHMA Primary Visit Diagnosis:Viral URI [J06.9] Other Visit Diagnosis:Asthma with acute exacerbation, unspecified asthma severity, unspecified whether persistent [J45.901] Order(s):predniSONE (DELTASONE) 20 mg tabletTake 2 tablets by mouth once daily for 5 days.Disp: 10 tabletRfl: 0 Prescriptions as of 12/07/2017 Sig: FLUTICASONE 100 MCG-SALMETERO* Inhale 1 Puff as instructed t* MONTELUKAST 10 MG TABLET Take 1 tablet by mouth daily * ALBUTEROL SULFATE HFA 90 MCG/* Inhale 2 Puffs as instructed * PREDNISONE 20 MG TABLET Take 2 tablets by mouth once * BENZONATATE 100 MG CAPSULE Take 2 capsules by mouth thre* Patient not taking: Reported on 12/07/2017 Problem List As Of Date 12/07/2017 Noted Resolved Asthma in adult [J45.909] INVALID FOR* Allergic rhinitis [J30.9] INVALID FOR* Anxiety [F41.9] INVALID FOR* Mood swings [F39] INVALID FOR* Other instructions from your clinician: Here is some cold and flu information to help ease your symptoms: 1.) Get more rest than you usually do - this will speed your recovery. If you push hard with your usual busy schedule, you will be sicker longer. 2.) Drink a lot of water - enough to make you urinate every 2-3 hours (your urine should be a light yellow color). This helps thin the phlegm and sooth the airways. Gatorade (G2) is less in sugar and replaces your electrolytes if not eating well. 3.) Run a cool mist humidifier in your bedroom on high with the door closed. This is a natural way to decongest, and it helps lessen scratchy throats, nasal stuffiness and coughs. 4.) For those without blood pressure concerns, take over the counter combination medication such as Tylenol cold and flu. Those with high blood pressure and not with prostate problems can try [id number] Coricidin HBP for congestion. 5) For nasal congestion, sinus pain/pressure: Nasal spray such as Flonase of Nasacort, available over the counter General information: * Green or yellow color does not mean you need an antibiotic; secretions can be green or yellow with viruses, such as the common cold * The average cold lasts 6-12 days. If you are not improving or are worsening by day 10 of symptoms follow up with the office Prescriptions ordered this encounter Disp Refills Start End PREDNISONE 20 MG TABLET 10 t* 0 12/07/2017 12/12/2017 Route: ORAL Sig: Take 2 tablets by mouth once daily for 5 days. Encounter Status:Closed by FLORY DENNIS CNP on 12/07/17 PROGRESS Observed: 10/23/2017 Status: COMPLETED Source: [place] 6:10 PM [facility] REPOSITORY O ID: [id number] Author: Liliana (Sandie) YEFRI Henao.SANDIE Service: (none) Author Type: Nurse Practitioner Type: Progress Notes Filed: 10/23/2017 6:15 PM Note Text: Subjective HPI Patient is a 47 year old female here today for a 1 month history of nasal congestion and sinus pressure. States she feels like she will start to feel better and then get worse. States not she has more pain in the right side of her face. OTC medications with little relief. Nothing makes it better or worse. No other concerns at this time. Review of Systems Constitutional: Positive for malaise/fatigue. Negative for chills and fever. HENT: Positive for congestion and ear pain. Negative for sore throat. Respiratory: Negative for cough, sputum production, shortness of breath and wheezing. Cardiovascular: Negative. Gastrointestinal: Negative for diarrhea, nausea and vomiting. Musculoskeletal: Negative for myalgias. Neurological: Negative for dizziness and headaches (sinus pressure). All other systems reviewed and are negative. PAST MEDICAL HISTORY Diagnosis Date - Anxiety - Asthma - Kidney stones 2012 still 3 remaining, [facility] - Seasonal allergies PAST SURGICAL HISTORY Procedure Laterality Date - OFFICE ENDOMETRIAL ABLATION 01/2012 novasure ablation [facility] ALLERGIES Review of patient's allergies indicates no known allergies. MEDICATIONS fluticasone-salmeterol (ADVAIR) 100-50 mcg/dose dsdv Inhale 1 Puff as instructed twice daily. benzonatate (TESSALON PERLE) 100 mg capsule Take 2 capsules by mouth three times daily as needed. montelukast (SINGULAIR) 10 mg tablet Take 1 tablet by mouth daily at bedtime. albuterol HFA (PROAIR HFA) 90 mcg/actuation inhaler Inhale 2 Puffs as instructed every 4 hours as needed. amoxicillin-clavulanic acid (AUGMENTIN) 875-125 mg per tablet Take 1 tablet by mouth twice daily for 10 days. FAMILY HISTORY Problem Relation Age of Onset - Stroke Father - Brain Tumor [Other] [OTHER] Father Social History Substance Use Topics - Smoking status: Never Smoker - Smokeless tobacco: Never Used - Alcohol use Yes Comment: 2 0r 3 glasses wine or beer a week BP 108/60 Pulse 64 Temp 36.5 ?C (97.7 ?F) (Tympanic) Resp 16 Wt 60.1 kg (132 lb 9.6 oz) BMI 24.65 kg/m2 Objective Physical Exam Constitutional: She is well-developed, well-nourished, and in no distress. Vital signs are normal. Mildly ill. HENT: Head: Normocephalic and atraumatic. Right Ear: External ear and ear canal normal. Tympanic membrane is injected. A middle ear effusion (white fluid) is present. Left Ear: External ear and ear canal normal. A middle ear effusion (white fluid) is present. Nose: Mucosal edema and rhinorrhea present. Right sinus exhibits maxillary sinus tenderness. Right sinus exhibits no frontal sinus tenderness. Left sinus exhibits no maxillary sinus tenderness and no frontal sinus tenderness. Mouth/Throat: Uvula is midline, oropharynx is clear and moist and mucous membranes are normal. No oropharyngeal exudate, posterior oropharyngeal edema or posterior oropharyngeal erythema. Neck: Neck supple. Cardiovascular: Normal rate, regular rhythm and normal heart sounds. Pulmonary/Chest: Effort normal and breath sounds normal. She has no wheezes. She has no rales. Lymphadenopathy: Head (right side): No submental, no submandibular and no tonsillar adenopathy present. Head (left side): No submental, no submandibular and no tonsillar adenopathy present. She has no cervical adenopathy. Neurological: She is alert. Skin: Skin is warm and dry. Nursing note and vitals reviewed. ASSESSMENT/PLAN: 1. Acute sinusitis, recurrence not specified, unspecified location - ICD9: 461.9, ICD10: J01.90 - Will begin treatment with as per antibiotic as written, see orders - The patient should also be given OTC cough and cold meds as needed, warm salt water gargles, throat lozenges and/or OTC throat spray as needed and OTC Flonase 2 sprays each nare for the first 5-7 days of treatment. - Supportive care with plenty of fluids, rest, and analgesia prn. - Follow up in 3-5 days if symptoms persist or worsen. - AMOXICILLIN 875 MG-POTASSIUM CLAVULANATE 125 MG TABLET Prescription instructions reviewed with patient as applicable. Patient advised if symptoms do not improve or if symptoms worsen sooner, to contact their primary care physician. Potential red flag symptoms discussed with the patient. Reviewed appropriate action plan to take if red flag symptoms occur. Patient agreeable to treatment plan. Liliana Henao APRN.CNP CNOV Observed: 10/23/2017 Status: COMPLETED Source: [place] 5:15 PM [facility] REPOSITORY Office Visit ([facility]) LISHA MCFARLAND ([id number]) 1970 F Date Time Provider Department 10/23/17 5:15 PM LILIANA HENAO (SANDIE) [facility] During your visit today, we recorded the following information about you: Temperature Pulse Respiration Blood pressure 97.7 degrees 64/minute 16/minute 108/60 Weight 60.1 kg Liliana Henao APRN.CNP, APRN.CNP 10/23/2017 5:35 PM Signed Acute Sinusitis Each of us has four paired cavities (spaces) in our head that are connected to the nose by narrow channels. These cavities, known as sinuses, produce thin mucus that drains out of the channels of the nose. This drainage helps keep the nose clean and free of particles and bacteria. Normally, sinuses are filled with air. But when sinuses become blocked and filled with fluid, bacteria can grow and cause an infection (bacterial sinusitis). Conditions that cause sinus blockage include: ? the common cold ? allergic rhinitis (swelling of the lining of the nose due to allergies) ? nasal polyps (small growths in the lining of the nose), or ? a deviated septum (the wall between the left and right nostril is crooked). Allergies, such as hay fever, can also cause swelling and poor drainage of the sinuses. One confusing factor to consider is that many people with ?sinus headaches? are actually suffering from migraines. In fact, in large clinical studies, up to 90% of people who reported sinus headaches were diagnosed with migraines instead. Migraines can cause headaches in combination with facial pressure over the sinuses, a runny nose, and nasal congestion. If you have symptoms that involve the sinuses, it may be difficult to tell if you have sinusitis, a cold, nasal allergy, or even a migraine. This article will describe the symptoms, diagnosis, and treatment of sinusitis, and how to tell the difference between sinusitis, cold, migraines, and nasal allergy. What is sinusitis? Sinusitis is an inflammation, or swelling, of the tissue lining the sinuses. There are two types of sinusitis: ? Acute bacterial sinusitis: a sudden onset of cold symptoms such as runny nose, stuffy nose, and facial pain that does not go away after 10 days, or symptoms that seem to begin improving but return worse than the initial symptoms. It responds well to antibiotics and decongestants. ? Chronic sinusitis: a condition defined by nasal congestion, drainage, facial pain/pressure, and decreased sense of smell for at least 12 weeks. Who gets sinusitis? Every year, approximately 1 billion Americans have at least one episode of viral sinusitis. About 37 million will develop a bacterial sinusitis. People who have the following conditions have a higher risk of sinusitis: ? Nasal mucus membrane swelling, as from a common cold or allergies ? Blockage of drainage ducts, leading to trapping of mucus ? Structure differences that narrow the drainage ducts ? Conditions that result in an increased risk of infection ? Polyps (growths) In children, common factors in the environment that contribute to sinusitis include allergies, illness from other children at day care or school, and smoke in the environment. In adults, the contributing factors are most frequently viral infections, allergies, and smoking. What are the signs and symptoms of acute sinusitis? The primary symptoms of acute sinusitis include: ? Facial pain/pressure/tenderness ? Nasal stuffiness ? Nasal discharge (thick yellow or green discharge from nose), especially if it is long-lasting. These also may be present with viral illness. ? Loss of smell and taste ? Cough/congestion Additional symptoms may include: ? Fever of 102? or higher ? Ear pain ? Headache ? Bad breath ? Fatigue ? Ache in upper jaw and teeth How is sinusitis diagnosed? To diagnose sinusitis, your doctor will discuss your symptoms and examine your nose for swelling and drainage. Your personal history is most important in diagnosing sinusitis. A physical exam of the ears, nose, and throat is performed to look for signs of obstruction (blockage) or infection. Some patients may have conditions that may need to be referred to a specialist, such as an ear, nose, and throat (ENT) physician. How is sinusitis treated? Acute sinusitis. If you have a simple sinusitis infection, your health care provider may recommend treatment with [id number] medications for cold and allergy, nasal saline irrigation, and drinking fluids (as most sinusitis is viral). Use of prescription intranasal steroid sprays might be added to help control symptoms. However, non-prescription drops or sprays should not be used beyond 5 days -- or they may actually increase congestion. If symptoms do not improve after at least 10 days, if the symptoms seem to be getting worse, or if medications for cold or allergy do not improve symptoms, a bacterial infection may be causing the sinusitis. In this case, antibiotics are given for 7 days in adults and 10 days in children. Antibiotics should improve symptoms within 48 hours. Chronic sinusitis. Treating chronic sinusitis begins with controlling the underlying condition, which is most often allergies. Standard treatments include intranasal steroid sprays, topical antihistamine sprays, or antihistamine pills, and leukotriene antagonists such as montelukast. Often you will be encouraged to rinse the nose with saline irrigations. Sometimes medications may be added to these irrigations. If sinusitis is not controlled, the next step is a visit with an Ear, Nose and Throat Specialist. Will I need to make lifestyle changes? If you have indoor allergies, avoiding triggers -- such as animal dander and dust mites ? is recommended in addition to medications. Smoking is never recommended, but if you do smoke, strongly consider a program to help you stop smoking, as this may be the main reason you have sinus infections. No special diet is required, but drinking extra fluids helps to thin nasal secretions. What are the symptoms of the common cold? An upper respiratory infection (the common cold) is usually caused by a virus that infects the nose and throat. Most upper respiratory infections are not bacterial and do not respond to antibiotics. A cold may cause swelling in the sinuses, preventing the outflow of mucus. Cold symptoms include nasal congestion, runny nose, post-nasal drip (fndn-sd-jezg release of nasal fluid into the back of the throat), headache, achiness, and fatigue. Cough and fever may also go along with these symptoms. Cold symptoms usually build, peak, and slowly disappear. No treatment is necessary for a cold, but some medications can ease symptoms. For example, decongestants may decrease drainage and open the nasal passages. Analgesics (pain relievers) may help with fever and headache. Cough medication may help, as well. Colds will typically last from a few days to about a week. What is the harm in getting an antibiotic for a common cold? Viral infections like the common cold are not cured by antibiotics. Taking an antibiotic for a viral infection unnecessarily puts you at risk for side effects related to the antibiotic. In addition, the overuse of antibiotics leads to antibiotic resistance, which may make future infections more difficult to treat. Finally, the use of inappropriate medication increases health care costs unnecessarily. What are the symptoms of nasal allergy? Symptoms of nasal allergy include: ? Sneezing ? Itchy nose ? Clear, watery nasal discharge ? Nasal blockage ? Feeling fatigued How is nasal allergy treated? Usually medications are prescribed to relieve symptoms. These may include antihistamines, with or without decongestants, or steroid nasal sprays. Other nasal sprays, which deliver antihistamines or cromolyn sodium, are sometimes helpful. If allergy symptoms are chronic (long-term), allergy testing and allergy shots (immunotherapy) may be helpful. How can I tell if I have a sinus infection, cold, or nasal allergy? Although the symptoms of sinusitis and nasal allergy may occur with a common cold, in general, cold-related symptoms disappear within 1 week. The point at which a normal cold ends and a sinus condition begins is not always easy to know. If you are fighting off a cold and develop symptoms of a sinus infection or nasal allergy, see your health care provider. You will be asked to describe your symptoms and medical history. ? How do I know if my sinus condition requires the care of an ear, nose, and throat specialist? Most routine sinus conditions are easily cared for by primary care physicians. If, however, you are bothered by ongoing abnormal symptoms, recurring infections, or have abnormal X-ray findings or complications, a referral to a specialist is appropriate. References ? Jazmyn Mejia al., IDSA Clinical Practice Guideline for Acute Bacterial Rhinosinusitis in Children and Adults. Clinical Infectious Diseases; 2012;54(8):7244-1567. ? Scot Alves, Sinusitis: Allergies, antibiotics, aspirin, asthma. [facility] Journal of Medicine 2006; 73(7): 671-678 ? National [place] of All[employer] and Infectious Diseases. Sinusitis (Sinus Infection) Accessed 06/13/2015. ? [place] [employer], Asthma, and Immunology. Sinusitis Accessed 06/13/2015. ? [employer] [place] [employer] of Allergy, Asthma ANDamp; Immunology. Sinus Information Accessed 06/13/2015. ? Jaleesa Fay., Prevalence of migraine in patients with a history of self-reported or physician-diagnosed ANDquot;sinusANDquot; headache. [employer], 2003. 164(16):1769-72. ? Copyright 5841-9510 The [facility]. All rights reserved. Liliana Henao APRN.ZECHARIAH HOOPER 10/23/2017 6:15 PM Signed Subjective HPI Patient is a 47 year old female here today for a 1 month history of nasal congestion and sinus pressure. States she feels like she will start to feel better and then get worse. States not she has more pain in the right side of her face. OTC medications with little relief. Nothing makes it better or worse. No other concerns at this time. Review of Systems Constitutional: Positive for malaise/fatigue. Negative for chills and fever. HENT: Positive for congestion and ear pain. Negative for sore throat. Respiratory: Negative for cough, sputum production, shortness of breath and wheezing. Cardiovascular: Negative. Gastrointestinal: Negative for diarrhea, nausea and vomiting. Musculoskeletal: Negative for myalgias. Neurological: Negative for dizziness and headaches (sinus pressure). All other systems reviewed and are negative. PAST MEDICAL HISTORY Diagnosis Date - Anxiety - Asthma - Kidney stones 2012 still 3 remaining, [facility] - Seasonal allergies PAST SURGICAL HISTORY Procedure Laterality Date - OFFICE ENDOMETRIAL ABLATION 01/2012 novasure ablation [facility] ALLERGIES Review of patient's allergies indicates no known allergies. MEDICATIONS fluticasone-salmeterol (ADVAIR) 100-50 mcg/dose dsdv Inhale 1 Puff as instructed twice daily. benzonatate (TESSALON PERLE) 100 mg capsule Take 2 capsules by mouth three times daily as needed. montelukast (SINGULAIR) 10 mg tablet Take 1 tablet by mouth daily at bedtime. albuterol HFA (PROAIR HFA) 90 mcg/actuation inhaler Inhale 2 Puffs as instructed every 4 hours as needed. amoxicillin-clavulanic acid (AUGMENTIN) 875-125 mg per tablet Take 1 tablet by mouth twice daily for 10 days. FAMILY HISTORY Problem Relation Age of Onset - Stroke Father - Brain Tumor [Other] [OTHER] Father Social History Substance Use Topics - Smoking status: Never Smoker - Smokeless tobacco: Never Used - Alcohol use Yes Comment: 2 0r 3 glasses wine or beer a week BP 108/60 Pulse 64 Temp 36.5 ?C (97.7 ?F) (Tympanic) Resp 16 Wt 60.1 kg (132 lb 9.6 oz) BMI 24.65 kg/m2 Objective Physical Exam Constitutional: She is well-developed, well-nourished, and in no distress. Vital signs are normal. Mildly ill. HENT: Head: Normocephalic and atraumatic. Right Ear: External ear and ear canal normal. Tympanic membrane is injected. A middle ear effusion (white fluid) is present. Left Ear: External ear and ear canal normal. A middle ear effusion (white fluid) is present. Nose: Mucosal edema and rhinorrhea present. Right sinus exhibits maxillary sinus tenderness. Right sinus exhibits no frontal sinus tenderness. Left sinus exhibits no maxillary sinus tenderness and no frontal sinus tenderness. Mouth/Throat: Uvula is midline, oropharynx is clear and moist and mucous membranes are normal. No oropharyngeal exudate, posterior oropharyngeal edema or posterior oropharyngeal erythema. Neck: Neck supple. Cardiovascular: Normal rate, regular rhythm and normal heart sounds. Pulmonary/Chest: Effort normal and breath sounds normal. She has no wheezes. She has no rales. Lymphadenopathy: Head (right side): No submental, no submandibular and no tonsillar adenopathy present. Head (left side): No submental, no submandibular and no tonsillar adenopathy present. She has no cervical adenopathy. Neurological: She is alert. Skin: Skin is warm and dry. Nursing note and vitals reviewed. ASSESSMENT/PLAN: 1. Acute sinusitis, recurrence not specified, unspecified location - ICD9: 461.9, ICD10: J01.90 - Will begin treatment with as per antibiotic as written, see orders - The patient should also be given OTC cough and cold meds as needed, warm salt water gargles, throat lozenges and/or OTC throat spray as needed and OTC Flonase 2 sprays each nare for the first 5-7 days of treatment. - Supportive care with plenty of fluids, rest, and analgesia prn. - Follow up in 3-5 days if symptoms persist or worsen. - AMOXICILLIN 875 MG-POTASSIUM CLAVULANATE 125 MG TABLET Prescription instructions reviewed with patient as applicable. Patient advised if symptoms do not improve or if symptoms worsen sooner, to contact their primary care physician. Potential red flag symptoms discussed with the patient. Reviewed appropriate action plan to take if red flag symptoms occur. Patient agreeable to treatment plan. Liliana Henao APRN.SANDIE Referring Provider: SELF [[id number]] Allergies As of Date: 10/23/2017 (No Known Allergies) Date Reviewed: 10/23/2017 Reviewed by: Liliana (Sandie) YEFRI Henao.STATUS CONTROLLER - Fully Assessed Reason for Visit: sinus pressure and pain-mostly right side [Other] Cmt: off and on x 1 month-right face and neck hurt the worst Primary Visit Diagnosis:Acute sinusitis, recurrence not specified, unspecified location [J01.90] Order(s):amoxicillin-clavulanic acid (AUGMENTIN) 875-125 mg per tabletTake 1 tablet by mouth twice daily for 10 days.Disp: 20 tabletRfl: 0 Prescriptions as of 10/23/2017 Sig: FLUTICASONE 100 MCG-SALMETERO* Inhale 1 Puff as instructed t* BENZONATATE 100 MG CAPSULE Take 2 capsules by mouth thre* MONTELUKAST 10 MG TABLET Take 1 tablet by mouth daily * ALBUTEROL SULFATE HFA 90 MCG/* Inhale 2 Puffs as instructed * AMOXICILLIN 875 MG-POTASSIUM * Take 1 tablet by mouth twice * Problem List As Of Date 10/23/2017 Noted Resolved Asthma in adult [J45.909] INVALID FOR* Allergic rhinitis [J30.9] INVALID FOR* Anxiety [F41.9] INVALID FOR* Mood swings [F39] INVALID FOR* Other instructions from your clinician: Acute Sinusitis Each of us has four paired cavities (spaces) in our head that are connected to the nose by narrow channels. These cavities, known as sinuses, produce thin mucus that drains out of the channels of the nose. This drainage helps keep the nose clean and free of particles and bacteria. Normally, sinuses are filled with air. But when sinuses become blocked and filled with fluid, bacteria can grow and cause an infection (bacterial sinusitis). Conditions that cause sinus blockage include: ? the common cold ? allergic rhinitis (swelling of the lining of the nose due to allergies) ? nasal polyps (small growths in the lining of the nose), or ? a deviated septum (the wall between the left and right nostril is crooked). Allergies, such as hay fever, can also cause swelling and poor drainage of the sinuses. One confusing factor to consider is that many people with ?sinus headaches? are actually suffering from migraines. In fact, in large clinical studies, up to 90% of people who reported sinus headaches were diagnosed with migraines instead. Migraines can cause headaches in combination with facial pressure over the sinuses, a runny nose, and nasal congestion. If you have symptoms that involve the sinuses, it may be difficult to tell if you have sinusitis, a cold, nasal allergy, or even a migraine. This article will describe the symptoms, diagnosis, and treatment of sinusitis, and how to tell the difference between sinusitis, cold, migraines, and nasal allergy. What is sinusitis? Sinusitis is an inflammation, or swelling, of the tissue lining the sinuses. There are two types of sinusitis: ? Acute bacterial sinusitis: a sudden onset of cold symptoms such as runny nose, stuffy nose, and facial pain that does not go away after 10 days, or symptoms that seem to begin improving but return worse than the initial symptoms. It responds well to antibiotics and decongestants. ? Chronic sinusitis: a condition defined by nasal congestion, drainage, facial pain/pressure, and decreased sense of smell for at least 12 weeks. Who gets sinusitis? Every year, approximately 1 billion Americans have at least one episode of viral sinusitis. About 37 million will develop a bacterial sinusitis. People who have the following conditions have a higher risk of sinusitis: ? Nasal mucus membrane swelling, as from a common cold or allergies ? Blockage of drainage ducts, leading to trapping of mucus ? Structure differences that narrow the drainage ducts ? Conditions that result in an increased risk of infection ? Polyps (growths) In children, common factors in the environment that contribute to sinusitis include allergies, illness from other children at day care or school, and smoke in the environment. In adults, the contributing factors are most frequently viral infections, allergies, and smoking. What are the signs and symptoms of acute sinusitis? The primary symptoms of acute sinusitis include: ? Facial pain/pressure/tenderness ? Nasal stuffiness ? Nasal discharge (thick yellow or green discharge from nose), especially if it is long-lasting. These also may be present with viral illness. ? Loss of smell and taste ? Cough/congestion Additional symptoms may include: ? Fever of 102? or higher ? Ear pain ? Headache ? Bad breath ? Fatigue ? Ache in upper jaw and teeth How is sinusitis diagnosed? To diagnose sinusitis, your doctor will discuss your symptoms and examine your nose for swelling and drainage. Your personal history is most important in diagnosing sinusitis. A physical exam of the ears, nose, and throat is performed to look for signs of obstruction (blockage) or infection. Some patients may have conditions that may need to be referred to a specialist, such as an ear, nose, and throat (ENT) physician. How is sinusitis treated? Acute sinusitis. If you have a simple sinusitis infection, your health care provider may recommend treatment with aiqu-nbp-hhlagyo medications for cold and allergy, nasal saline irrigation, and drinking fluids (as most sinusitis is viral). Use of prescription intranasal steroid sprays might be added to help control symptoms. However, non- prescription drops or sprays should not be used beyond 5 days -- or they may actually increase congestion. If symptoms do not improve after at least 10 days, if the symptoms seem to be getting worse, or if medications for cold or allergy do not improve symptoms, a bacterial infection may be causing the sinusitis. In this case, antibiotics are given for 7 days in adults and 10 days in children. Antibiotics should improve symptoms within 48 hours. Chronic sinusitis. Treating chronic sinusitis begins with controlling the underlying condition, which is most often allergies. Standard treatments include intranasal steroid sprays, topical antihistamine sprays, or antihistamine pills, and leukotriene antagonists such as montelukast. Often you will be encouraged to rinse the nose with saline irrigations. Sometimes medications may be added to these irrigations. If sinusitis is not controlled, the next step is a visit with an Ear, Nose and Throat Specialist. Will I need to make lifestyle changes? If you have indoor allergies, avoiding triggers -- such as animal dander and dust mites ? is recommended in addition to medications. Smoking is never recommended, but if you do smoke, strongly consider a program to help you stop smoking, as this may be the main reason you have sinus infections. No special diet is required, but drinking extra fluids helps to thin nasal secretions. What are the symptoms of the common cold? An upper respiratory infection (the common cold) is usually caused by a virus that infects the nose and throat. Most upper respiratory infections are not bacterial and do not respond to antibiotics. A cold may cause swelling in the sinuses, preventing the outflow of mucus. Cold symptoms include nasal congestion, runny nose, post- nasal drip (glzv-bl-kfce release of nasal fluid into the back of the throat), headache, achiness, and fatigue. Cough and fever may also go along with these symptoms. Cold symptoms usually build, peak, and slowly disappear. No treatment is necessary for a cold, but some medications can ease symptoms. For example, decongestants may decrease drainage and open the nasal passages. Analgesics (pain relievers) may help with fever and headache. Cough medication may help, as well. Colds will typically last from a few days to about a week. What is the harm in getting an antibiotic for a common cold? Viral infections like the common cold are not cured by antibiotics. Taking an antibiotic for a viral infection unnecessarily puts you at risk for side effects related to the antibiotic. In addition, the overuse of antibiotics leads to antibiotic resistance, which may make future infections more difficult to treat. Finally, the use of inappropriate medication increases health care costs unnecessarily. What are the symptoms of nasal allergy? Symptoms of nasal allergy include: ? Sneezing ? Itchy nose ? Clear, watery nasal discharge ? Nasal blockage ? Feeling fatigued How is nasal allergy treated? Usually medications are prescribed to relieve symptoms. These may include antihistamines, with or without decongestants, or steroid nasal sprays. Other nasal sprays, which deliver antihistamines or cromolyn sodium, are sometimes helpful. If allergy symptoms are chronic (long- term), allergy testing and allergy shots (immunotherapy) may be helpful. How can I tell if I have a sinus infection, cold, or nasal allergy? Although the symptoms of sinusitis and nasal allergy may occur with a common cold, in general, cold-related symptoms disappear within 1 week. The point at which a normal cold ends and a sinus condition begins is not always easy to know. If you are fighting off a cold and develop symptoms of a sinus infection or nasal allergy, see your health care provider. You will be asked to describe your symptoms and medical history. ? How do I know if my sinus condition requires the care of an ear, nose, and throat specialist? Most routine sinus conditions are easily cared for by primary care physicians. If, however, you are bothered by ongoing abnormal symptoms, recurring infections, or have abnormal X-ray findings or complications, a referral to a specialist is appropriate. References ? Usman Mejia et al., IDSA Clinical Practice Guideline for Acute Bacterial Rhinosinusitis in Children and Adults. Clinical Infectious Diseases; 2012;54(8):9009-4421. ? Scot Alves, Sinusitis: Allergies, antibiotics, aspirin, asthma. [facility] Journal of Medicine 2006; 73(7): 671-678 ? National [place] of [employer] and [employer]ious [employer]. Sinusitis (Sinus Infection) Accessed 06/13/2015. ? [place] [employer], [employer]hma, and Immun[employer]. Sinusitis Accessed 06/13/2015. ? [employer] [place] [employer], [employer]. Sinus Information Accessed 06/13/2015. ? Jaleesa Fay., Prevalence of migraine in patients with a history of self-reported or physician-diagnosed sinus headache. [employer], 2004. 164(16):1769-72. ? Copyright 5812-2891 The [facility]. All rights reserved. Prescriptions ordered this encounter Disp Refills Start End AMOXICILLIN 875 MG-POTASSIUM CLAVULA* 20 t* 0 10/23/2017 11/02/2017 Route: ORAL Sig: Take 1 tablet by mouth twice daily for 10 days. Encounter Status:Closed by LILIANA HENAO CNP on 10/23/17 PROGRESS Observed: 07/23/2017 Status: COMPLETED Source: [place] 1:30 PM [facility] REPOSITORY HNO ID: [id number] Author: Krystal Brooks Service: (none) Author Type: Nurse Practitioner Type: Progress Notes Filed: 07/23/2017 3:18 PM Note Text: HPI HPI Lisha Mcfarland is a 47 year old female who presents today for CC of cough, shortness of breath, chest congestion This started 3 days ago. Has tried rescue and daily inhalers. Symptoms are made relieved by nothing. Symptoms are worsened by nothing. Risk factors has asthma. Denies possibility of being . Patient states cough slightly improving in recent days . Review of Systems Constitutional: Negative for chills, fever and weight loss. HENT: Positive for congestion and sore throat. Negative for ear pain and nosebleeds. Respiratory: Positive for cough. Negative for shortness of breath and wheezing. Musculoskeletal: Negative for neck pain. PAST MEDICAL HISTORY Diagnosis Date - Anxiety - Asthma - Kidney stones 2011 still 3 remaining, [facility] - Seasonal allergies PAST SURGICAL HISTORY Procedure Laterality Date - OFFICE ENDOMETRIAL ABLATION 01/2012 novasure ablation [facility] Review of patient's allergies indicates no known allergies. MEDICATIONS montelukast (SINGULAIR) 10 mg tablet Take 1 tablet by mouth daily at bedtime. mometasone-formoterol (DULERA) 100-5 mcg/actuation inhaler Inhale 2 Puffs as instructed twice daily. albuterol HFA (PROAIR HFA) 90 mcg/actuation inhaler Inhale 2 Puffs as instructed every 4 hours as needed. FAMILY HISTORY Problem Relation Age of Onset - Stroke Father - Brain Tumor [Other] [OTHER] Father Social History Substance Use Topics - Smoking status: Never Smoker - Smokeless tobacco: Never Used - Alcohol use Yes Comment: 2 0r 3 glasses wine or beer a week Blood pressure 120/62, pulse (!) 55, temperature 37.3 ?C (99.1 ?F), temperature source Left Tympanic, resp. rate 16, weight 63.5 kg (140 lb), SpO2 100 %. Physical Exam Constitutional: She is oriented to person, place, and time and well-developed, well-nourished, and in no distress. Non-toxic appearance. She does not have a sickly appearance. No distress. HENT: Head: Normocephalic and atraumatic. Right Ear: Hearing, tympanic membrane, external ear and ear canal normal. Left Ear: Hearing, tympanic membrane, external ear and ear canal normal. Nose: Nose normal. Mouth/Throat: Uvula is midline, oropharynx is clear and moist and mucous membranes are normal. Eyes: Conjunctivae, EOM and lids are normal. Pupils are equal, round, and reactive to light. Lids are everted and swept, no foreign bodies found. Right eye exhibits no discharge. Left eye exhibits no discharge. No scleral icterus. Neck: Trachea normal and normal range of motion. Neck supple. Cardiovascular: Normal rate, regular rhythm and normal heart sounds. Pulmonary/Chest: Effort normal and breath sounds normal. Respirations are easy, mild intermittent dry cough during exam. Lymphadenopathy: She has no cervical adenopathy. Neurological: She is alert and oriented to person, place, and time. Skin: No rash noted. She is not diaphoretic. ASSESSMENT/PLAN: 1. URI with cough and congestion - ICD9: 465.9, ICD10: J06.9 (primary diagnosis) - Discussed viral etiology and rationale for treatment. - Symptomatic treatment with prn analgesia - Supportive care with fluids and rest - Follow up in 3-5 days if symptoms persist or sooner if worsening of symptoms - PREDNISONE 20 MG TABLET - BENZONATATE 100 MG CAPSULE 2. Mild asthma with exacerbation, unspecified whether persistent - ICD9: 493.92, ICD10: J45.901 -cough improving slightly per patient, f/u with pcp if symptoms do not improve/worsen Will try round of steroids - PREDNISONE 20 MG TABLET - BENZONATATE 100 MG CAPSULE Prescription instructions reviewed with patient as applicable. Patient advised if symptoms do not improve or if symptoms worsen sooner, to contact the office for further evaluation by either myself or their primary care physician. Potential red flag symptoms discussed with the patient. Reviewed appropriate action plan to take if red flag symptoms occur. Patient agreeable to treatment plan. SANDIE Givens Observed: 07/23/2017 Status: COMPLETED Source: [place] 1:30 PM [facility] REPOSITORY Office Visit ([facility]) LISHA MCFARLAND ([id number]) 1970 F Date Time Provider Department 07/23/17 1:30 PM KRYSTAL BROOKS (SANDIE) [facility] During your visit today, we recorded the following information about you: Temperature Pulse Respiration Blood pressure 99.1 degrees 55/minute 16/minute 120/62 Weight 63.5 kg Krystal Brooks CNP 07/23/2017 3:18 PM Signed HPI HPI Lisha Mcfarland is a 47 year old female who presents today for CC of cough, shortness of breath, chest congestion This started 3 days ago. Has tried rescue and daily inhalers. Symptoms are made relieved by nothing. Symptoms are worsened by nothing. Risk factors has asthma. Denies possibility of being . Patient states cough slightly improving in recent days . Review of Systems Constitutional: Negative for chills, fever and weight loss. HENT: Positive for congestion and sore throat. Negative for ear pain and nosebleeds. Respiratory: Positive for cough. Negative for shortness of breath and wheezing. Musculoskeletal: Negative for neck pain. PAST MEDICAL HISTORY Diagnosis Date - Anxiety - Asthma - Kidney stones 2011 still 3 remaining, [facility] - Seasonal allergies PAST SURGICAL HISTORY Procedure Laterality Date - OFFICE ENDOMETRIAL ABLATION 01/2012 novasure ablation [facility] Review of patient's allergies indicates no known allergies. MEDICATIONS montelukast (SINGULAIR) 10 mg tablet Take 1 tablet by mouth daily at bedtime. mometasone-formoterol (DULERA) 100-5 mcg/actuation inhaler Inhale 2 Puffs as instructed twice daily. albuterol HFA (PROAIR HFA) 90 mcg/actuation inhaler Inhale 2 Puffs as instructed every 4 hours as needed. FAMILY HISTORY Problem Relation Age of Onset - Stroke Father - Brain Tumor [Other] [OTHER] Father Social History Substance Use Topics - Smoking status: Never Smoker - Smokeless tobacco: Never Used - Alcohol use Yes Comment: 2 0r 3 glasses wine or beer a week Blood pressure 120/62, pulse (!) 55, temperature 37.3 ?C (99.1 ?F), temperature source Left Tympanic, resp. rate 16, weight 63.5 kg (140 lb), SpO2 100 %. Physical Exam Constitutional: She is oriented to person, place, and time and well-developed, well-nourished, and in no distress. Non-toxic appearance. She does not have a sickly appearance. No distress. HENT: Head: Normocephalic and atraumatic. Right Ear: Hearing, tympanic membrane, external ear and ear canal normal. Left Ear: Hearing, tympanic membrane, external ear and ear canal normal. Nose: Nose normal. Mouth/Throat: Uvula is midline, oropharynx is clear and moist and mucous membranes are normal. Eyes: Conjunctivae, EOM and lids are normal. Pupils are equal, round, and reactive to light. Lids are everted and swept, no foreign bodies found. Right eye exhibits no discharge. Left eye exhibits no discharge. No scleral icterus. Neck: Trachea normal and normal range of motion. Neck supple. Cardiovascular: Normal rate, regular rhythm and normal heart sounds. Pulmonary/Chest: Effort normal and breath sounds normal. Respirations are easy, mild intermittent dry cough during exam. Lymphadenopathy: She has no cervical adenopathy. Neurological: She is alert and oriented to person, place, and time. Skin: No rash noted. She is not diaphoretic. ASSESSMENT/PLAN: 1. URI with cough and congestion - ICD9: 465.9, ICD10: J06.9 (primary diagnosis) - Discussed viral etiology and rationale for treatment. - Symptomatic treatment with prn analgesia - Supportive care with fluids and rest - Follow up in 3-5 days if symptoms persist or sooner if worsening of symptoms - PREDNISONE 20 MG TABLET - BENZONATATE 100 MG CAPSULE 2. Mild asthma with exacerbation, unspecified whether persistent - ICD9: 493.92, ICD10: J45.901 -cough improving slightly per patient, f/u with pcp if symptoms do not improve/worsen Will try round of steroids - PREDNISONE 20 MG TABLET - BENZONATATE 100 MG CAPSULE Prescription instructions reviewed with patient as applicable. Patient advised if symptoms do not improve or if symptoms worsen sooner, to contact the office for further evaluation by either myself or their primary care physician. Potential red flag symptoms discussed with the patient. Reviewed appropriate action plan to take if red flag symptoms occur. Patient agreeable to treatment plan. SANDIE Givens CNP 07/23/2017 1:54 PM Signed RESPIRATORY INFECTION GENERAL INFORMATION: An upper respiratory tract infection, or cold, is a viral infection of the airway passages. It can be caused by any one of almost 200 different viruses. Common symptoms include a runny or stuffy nose, sneezing, watery eyes, sore throat, cough, and slight fever. Colds are contagious, especially during the first 3 or 4 days and cannot be cured by antibiotics. They are spread by coughs, sneezes, and direct contact, especially [id number]-zq-[id number]. A respiratory tract infection usually clears up in a few days, but some people may be sick for a week or two. INSTRUCTIONS: 1. Be careful not to blow your nose too hard because this may cause a nosebleed. 2. Use a cool-mist humidifier (vaporizer) to increase air moisture. This will make it easier for you to breathe. Do not use hot steam. 3. Rest as much as possible and get plenty of sleep. 4. Wash your hands often, especially after you blow your nose. Cover your mouth and nose with a tissue when you sneeze or cough. 5. Drink plenty of clear fluids (8 glasses a day) such as water, fruit juice, tea, clear soups, and carbonated beverages. CONTACT YOUR DOCTOR IF : 1. Your fever lasts more than 3 days. 2. You have a sore throat that gets worse or you see white or yellow spots in your throat. 3. Your cough gets worse or lasts more than 10 days. 4. You develop a rash anywhere on your skin. 5. You have an earache or a headache. 6. You have thick greenish or yellowish discharge from your nose. RETURN IMMEDIATELY IF: 1. You cough up thick yellow, green, birch, or bloody sputum. 2. You have difficulty breathing, pain in your chest, or your skin or nails look birch or blue. 3. You have shaking chills or a temperature over 102 F (39 C). Referring Provider: SELF [200] Allergies As of Date: 07/23/2017 (No Known Allergies) Date Reviewed: 07/23/2017 Reviewed by: Krystal Brooks - Fully Assessed Reason for Visit: Cough [28] Cmt: x 10 days cough, chest congestion, difficulty breathing and shortness of breath Primary Visit Diagnosis:URI with cough and congestion [J06.9] Other Visit Diagnosis:Mild asthma with exacerbation, unspecified whether persistent [J45.901] Order(s):predniSONE (DELTASONE) 20 mg tabletTake 2 tablets by mouth once daily for 5 days.Disp: 10 tabletRfl: 0 benzonatate (TESSALON PERLE) 100 mg capsuleTake 2 capsules by mouth three times daily as needed.Disp: 30 capsuleRfl: 0 Prescriptions as of 07/23/2017 Sig: MONTELUKAST 10 MG TABLET Take 1 tablet by mouth daily * MOMETASONE-FORMOTEROL HFA 100* Inhale 2 Puffs as instructed * ALBUTEROL SULFATE HFA 90 MCG/* Inhale 2 Puffs as instructed * PREDNISONE 20 MG TABLET Take 2 tablets by mouth once * BENZONATATE 100 MG CAPSULE Take 2 capsules by mouth thre* Problem List As Of Date 07/23/2017 Noted Resolved Asthma in adult [J45.909] INVALID FOR* Allergic rhinitis [J30.9] INVALID FOR* Anxiety [F41.9] INVALID FOR* Mood swings [F39] INVALID FOR* Other instructions from your clinician: RESPIRATORY INFECTION GENERAL INFORMATION: An upper respiratory tract infection, or cold, is a viral infection of the airway passages. It can be caused by any one of almost 200 different viruses. Common symptoms include a runny or stuffy nose, sneezing, watery eyes, sore throat, cough, and slight fever. Colds are contagious, especially during the first 3 or 4 days and cannot be cured by antibiotics. They are spread by coughs, sneezes, and direct contact, especially bxuc-pa-[id number]. A respiratory tract infection usually clears up in a few days, but some people may be sick for a week or two. INSTRUCTIONS: 1. Be careful not to blow your nose too hard because this may cause a nosebleed. 2. Use a cool-mist humidifier (vaporizer) to increase air moisture. This will make it easier for you to breathe. Do not use hot steam. 3. Rest as much as possible and get plenty of sleep. 4. Wash your hands often, especially after you blow your nose. Cover your mouth and nose with a tissue when you sneeze or cough. 5. Drink plenty of clear fluids (8 glasses a day) such as water, fruit juice, tea, clear soups, and carbonated beverages. CONTACT YOUR DOCTOR IF : 1. Your fever lasts more than 3 days. 2. You have a sore throat that gets worse or you see white or yellow spots in your throat. 3. Your cough gets worse or lasts more than 10 days. 4. You develop a rash anywhere on your skin. 5. You have an earache or a headache. 6. You have thick greenish or yellowish discharge from your nose. RETURN IMMEDIATELY IF: 1. You cough up thick yellow, green, birch, or bloody sputum. 2. You have difficulty breathing, pain in your chest, or your skin or nails look birch or blue. 3. You have shaking chills or a temperature over 102 F (39 C). Prescriptions ordered this encounter Disp Refills Start End PREDNISONE 20 MG TABLET 10 t* 0 07/23/2017 07/28/2017 Route: ORAL Sig: Take 2 tablets by mouth once daily for 5 days. BENZONATATE 100 MG CAPSULE 30 c* 0 07/23/2017 Route: ORAL Sig: Take 2 capsules by mouth three times daily as needed. Encounter Status:Closed by KRYSTAL BROOKS CNP on 07/23/17 ALLERGIES ALLERGIES DATE TYPE / CODE NAME / CODE REACTION SEVERITY SOURCE 07/15/2018 Drug No Known Unknown [facility] Allergy/416 Allergies/[id number] [facility] [id number](SNOM 0388(RXNORM) Repository ED CT) 05/15/2018 Environ/420 SEASONAL OTHER: SEE C [facility] 383746(SNOM ALLERGIES [facility] [place] ED [facility]) Repository Drug NO KNOWN [facility] Class/97916 ALLERGIES [facility] [place] 1003(SNOMED Repository CT) ENCOUNTERS ENCOUNTERS ADMIT/DISCHARGE ACCOUNT ADMITTING ENCOUNTER LOCATION SOURCE NUMBER CLASS 07/15/2018 [id number] Ambulatory [facility] ing:LABSPEC Repository 07/15/2018/07/15/20 [id number] Ambulatory BMSBuilding:[address] [place] [address] Repository 07/01/2018/07/01/20 [id number] Ambulatory [address] Repository 07/01/2018/07/02/20 [id number] Ambulatory [address] Repository 06/30/2018 [id number] Ambulatory [facility] ing:OPBI Repository 05/15/2018/05/18/20 [id number] Ambulatory [address] Repository 12/07/2017/12/10/19 [id number] Ambulatory [address] Repository 10/23/2017/10/24/19 [id number] Ambulatory [address] Repository 07/23/2017/07/23/20 [id number] Ambulatory [address] Repository PAYERS PAYERS ENCOUNTER GUARANTOR PAYER SUBSCRIBER SOURCE 07/15/2018 LISHA L [id number] Primary LISHA L WELTYDOB: Aliyah WILDWOOD Insurance:[id number] [id number]: (330) Number: Repository [id number] () [id number] [place]32[place] [phone]: 07/15/2018 Secondary NOT GIVENUNK [place] Insurance:SELF PAY [facility] Number: Effective Repository Date:2018-07-15 07/15/2018 LISHA L [id number] Primary LISHA L WELTYDOB: [place]ILDWOOD Insurance:MEDICAL [id number] [id number]: (330) Number: Repository [phone] () [id number] Date:8732-88-38ZGKevin [place] [phone]: 07/15/2018 Secondary NOT GIVENUNK [place] Insurance:SELF PAY [facility] Number: Effective Repository Date:2018-06-12 06/30/2018 LISHA L [id number] Primary LISHA L WELTYDOB: [place]IL[place]OOD Insurance:MEDICAL [id number] [id number]: (330) Number: Repository [phone] () [id number] Date:2705-04-34RF[place] [phone]: 06/30/2018 Secondary NOT GIVENUNK [place] Insurance:SELF PAY [facility] Effective Repository Date:2018-05-20
== END ==
PROVIDERS: Family Provider Student in an Organized Health Care Education/Training Program; PCP Student in an Organized Health Care Education/Training Program; Referring Provider Nurse Practitioner Women's Health; Visit Provider Nurse Practitioner Women's Health
DX: Z12.31 Encounter for screening mammogram for malignant neoplasm of breast (principal)
CPT/HCPCS: 77063; 77067

== ENCOUNTER → 2018-07-15 16:57 | Outpatient (CLI) | payer OTHER, SELFPAY ==
[2018-07-15 08:15] VITALS: BMI 24.0
[2018-07-21 10:36] LABS: HPV APTIMA, High Risk Negative (Negative)
--- OUTSIDE RECORDS SUMMARY | 2018-08-31 22:08 | XMS RPT_ITS ---
:1970 Author Organization OHIP Care Team Providers Name Role Phone KATT GIANG Referring Unavailable CORNIELLO, JIN L ([facility]) Attending Unavailable SMITH, RAS L Referring Unavailable CORNIELLO, JIN L ([facility]) Referring Unavailable CORNIELLO, JIN L ([facility]) Attending Unavailable CORNIELLO, JIN L ([facility]) Referring Unavailable Annette, Xiomara Attending Unavailable Smith, Ras Referring Unavailable Davis, Xiomara Attending Unavailable Annette, Xiomara Referring Unavailable Davis, Xiomara Attending Unavailable Annette, Xiomara Referring Unavailable Smith, Ras Primary Care Unavailable PROBLEMS PROBLEMS DATE TYPE CONDITION / CODE ATTENDING STATUS SOURCE 08/20/2018 Active Hypoglycemia, NA Active [facility] unspecified / [place] E16.2(ICD-10) Repository 08/12/2018 Active Encounter for NA Active [facility] general adult [place] medical Repository examination without abnormal findings / Z00.00(ICD-10) 07/15/2018 Unknown Z12.4 - Encounter Xiomara Bryant for screening for [facility] neoplasm of Repository cervix / Z12.4(ICD-10) 07/01/2018 Active Other chest pain NA Active [facility] / R07.89(ICD-10) [place] Repository PROCEDURES PROCEDURES No Procedure Records FoundRESULTS RESULTS TSH Collected: 08/20/2018 Status: F Source: [facility]INCENT 2:08 PM [facility] REPOSITORY TYPE CODE TESTS RESULT OUT OF RANGE REFERENCE UNITS LAB TSH 0.400-5.500 uU/mL TSH 0.833 Result Comment: If the patient is , TSH reference range varies by gestational period: First Trimester 0.100-2.500 uU/mL Second Trimester 0.200-3.000 uU/mL Third Trimester 0.300-3.000 uU/mL References: 1. Mcnamara L, Jericho M, Seng EK, et al. Management of Thyroid Dysfunction during and : An Endocrine Society Clinical Practice Guideline. J Clin Endocrinol Metab, 2012:97:4559-7590. 2. Phil WILSON. Overview of thyroid disease in . UpToDate. 2016. Accessed on January 19, 2016. Performed By: #### TSH, HBA1C #### [facility] [employer] [address] [place], [place] [address] HEMOGLOBIN A1C Collected: 08/20/2018 Status: F Source: [facility] 2:08 PM [facility] REPOSITORY TYPE CODE TESTS RESULT OUT OF REFERENCE UNITS RANGE LAB HGBA1C 4.3-5.6 % Hemoglobin A1c 4.9 Result Comment: [place] Diabetes Association guidelines indicate that patients with HgbA1c in the range 5.7-6.4% are at increased risk for development of diabetes, and intervention by lifestyle modification may be beneficial. HgbA1c greater or equal to 6.5% is considered diagnostic of diabetes. LAB HBA0 mg/dL Est. Average Glucose 94 Result Comment: eAG: (Estimated average glucose) is a calculated value from HgbA1c and is business center representative of the average blood glucose level in the last 2-3 month period. Performed By: #### TSH, HBA1C #### [facility] [employer] [address] [place], [place] [id number] PROGRESS Observed: 08/20/2018 Status: COMPLETED Source: VINCENT 1:29 PM [facility] REPOSITORY HNO ID: [id number] Author: Jin Winchester (Sandie) Tani Service: (none) Author Type: Nurse Practitioner Type: Progress Notes Filed: 08/20/2018 2:26 PM Note Text: HPI/CC: Lisha Mcfarland is a 48 year old female who presents for 1 week follow up from CPE headaches, lightheadedness; and low blood glucose- review recent labs. Component Latest Ref Rng AND Units 10/14/2014 08/12/2018 Protein, Total 6.3 - 8.0 g/dL 7.8 Albumin 3.9 - 4.9 g/dL 4.6 Calcium 8.5 - 10.2 mg/dL 9.2 9.7 Bilirubin, Total 0.2 - 1.3 mg/dL 0.2 Alkaline Phosphatase 34 - 123 U/L 55 AST 13 - 35 U/L 28 Glucose 74 - 99 mg/dL 80 42 (L) BUN 7 - 21 mg/dL 13 19 Creatinine 0.58 - 0.96 mg/dL 0.86 0.87 Sodium 136 - 144 mmol/L 141 142 Potassium 3.7 - 5.1 mmol/L 4.2 4.4 Chloride 97 - 105 mmol/L 103 101 CO2 22 - 30 mmol/L 26 24 Anion Gap 9 - 18 mmol/L 12 17 ALT 7 - 38 U/L 17 eGFR- >60 >60 eGFR-All Other Races . >60 >60 Triglyceride 30 - 149 mg/dL 45 Cholesterol, Total 100 - 199 mg/dL 181 HDL Cholesterol >55 mg/dL 88 VLDL Cholesterol 6 - 40 mg/dL 9 LDL Cholesterol 60 - 129 mg/dL 84 Fasting Time hrs FASTING TC:HDL Ratio 1.00 - 5.00 2.06 LDL:HDL Ratio 0.50 - 3.55 0.95 Non HDL Cholesterol 90 - 159 mg/dL 93 Total Cholesterol, Nonfasting <200 mg/dL 201 (H) Triglycerides, Nonfasting <150 mg/dL 57 HDL Cholesterol, Nonfasting >39 mg/dL 96 LDL Cholesterol, Nonfasting <100 mg/dL 94 Non HDL Cholesterol, Nonfasting <130 mg/dL 105 VLDL Cholesterol, Nonfasting <30 mg/dL 11 Total Chol/HDL Ratio, Nonfasting <5.10 mg/dL 2.09 LDL/HDL Ratio, Nonfasting <2.54 mg/dL 0.98 ROS as above, otherwise non-contributory. Reviewed PMHx, PSHx, social Hx, medications and allergies. PHYSICAL EXAMINATION: BP 84/62 Pulse (!) 56 Resp 16 Wt 60.3 kg (133 lb) BMI 24.93 kg/m? General appearance: Well appearing, alert, in no acute distress, well-hydrated, well nourished. ASSESSMENT/PLAN: 1. Hypoglycemia - ICD9: 251.2, ICD10: E16.2 - check glucose levels fasting, PP and with symptoms - notify office if glucose <70 ot <150 - BLOOD-GLUCOSE METER KIT - LANCETS - BLOOD SUGAR DIAGNOSTIC STRIPS - HGB A1C - TSH BLD - provided patient with patient information regarding Hypoglycemia The majority of the visit was spent counseling and/or coordinating care for the patient. Gwbc-wp-pxsk time was 20 minutes. Jin Freire APRN.CNP CNOV Observed: 08/20/2018 Status: COMPLETED Source: [facility]INCENT 1:20 PM [facility] REPOSITORY Office Visit (FAMPWS) LISHA MCFARLAND ([id number]) 1970 F Date Time Provider Department 08/20/18 1:20 PM JIN FREIRE) FAMPWS During your visit today, we recorded the following information about you: Pulse Respiration Blood pressure Weight 56/minute 16/minute 84/62 60.3 kg Jin Freire APRN.CNP 08/20/2018 2:26 PM Signed HPI/CC: Lisha Mcfarland is a 48 year old female who presents for 1 week follow up from CPE headaches, lightheadedness; and low blood glucose- review recent labs. Component Latest Ref Rng AND Units 10/14/2014 08/12/2018 Protein, Total 6.3 - 8.0 g/dL 7.8 Albumin 3.9 - 4.9 g/dL 4.6 Calcium 8.5 - 10.2 mg/dL 9.2 9.7 Bilirubin, Total 0.2 - 1.3 mg/dL 0.2 Alkaline Phosphatase 34 - 123 U/L 55 AST 13 - 35 U/L 28 Glucose 74 - 99 mg/dL 80 42 (L) BUN 7 - 21 mg/dL 13 19 Creatinine 0.58 - 0.96 mg/dL 0.86 0.87 Sodium 136 - 144 mmol/L 141 142 Potassium 3.7 - 5.1 mmol/L 4.2 4.4 Chloride 97 - 105 mmol/L 103 101 CO2 22 - 30 mmol/L 26 24 Anion Gap 9 - 18 mmol/L 12 17 ALT 7 - 38 U/L 17 eGFR- >60 >60 eGFR-All Other Races . >60 >60 Triglyceride 30 - 149 mg/dL 45 Cholesterol, Total 100 - 199 mg/dL 181 HDL Cholesterol >55 mg/dL 88 VLDL Cholesterol 6 - 40 mg/dL 9 LDL Cholesterol 60 - 129 mg/dL 84 Fasting Time hrs FASTING TC:HDL Ratio 1.00 - 5.00 2.06 LDL:HDL Ratio 0.50 - 3.55 0.95 Non HDL Cholesterol 90 - 159 mg/dL 93 Total Cholesterol, Nonfasting <200 mg/dL 201 (H) Triglycerides, Nonfasting <150 mg/dL 57 HDL Cholesterol, Nonfasting >39 mg/dL 96 LDL Cholesterol, Nonfasting <100 mg/dL 94 Non HDL Cholesterol, Nonfasting <130 mg/dL 105 VLDL Cholesterol, Nonfasting <30 mg/dL 11 Total Chol/HDL Ratio, Nonfasting <5.10 mg/dL 2.09 LDL/HDL Ratio, Nonfasting <2.54 mg/dL 0.98 ROS as above, otherwise non-contributory. Reviewed PMHx, PSHx, social Hx, medications and allergies. PHYSICAL EXAMINATION: BP 84/62 Pulse (!) 56 Resp 16 Wt 60.3 kg (133 lb) BMI 24.93 kg/m? General appearance: Well appearing, alert, in no acute distress, well-hydrated, well nourished. ASSESSMENT/PLAN: 1. Hypoglycemia - ICD9: 251.2, ICD10: E16.2 - check glucose levels fasting, PP and with symptoms - notify office if glucose <70 ot <150 - BLOOD-GLUCOSE METER KIT - LANCETS - BLOOD SUGAR DIAGNOSTIC STRIPS - HGB A1C - TSH BLD - provided patient with patient information regarding Hypoglycemia The majority of the visit was spent counseling and/or coordinating care for the patient. Ghun-pa-dcid time was 20 minutes. Jin Freire APRN.ASSOCIATE SCHOOL PSYCHOLOGIST Allergies As of Date: 08/20/2018 Noted Allergy Reaction SEASONAL ALLERGIES 05/15/2018 14 - Other: See Comments Comments: Sneezing, SOB Date Reviewed: 08/20/2018 Reviewed by: César Toscano LPN - Fully Assessed Reason for Visit: Recheck [92] Cmt: 1 week follow up headaches, dizziness, low blood glucose Primary Visit Diagnosis:Hypoglycemia [E16.2] Order(s):Blood-Glucose Meter monitoring kitGlucose Meter of Choice - Kit - Dx: Other DM Code hypoglycemiaDisp: 1 EachRfl: 0 Lancets lancetsTest blood sugar(s) 2 x daily. Dx: hypoglycemia . Insulin: NoDisp: 100 EachRfl: 11 blood sugar diagnostic (BLOOD GLUCOSE TEST) test stripTest blood sugar(s) 2 times daily. Dx hypoglycemia . Insulin: NoDisp: 50 StripRfl: 11 HGB A1C [[id number]] Order #: [id number] FUTURE TSH BLD [SQTSH] Order #: [id number] FUTURE Prescriptions as of 08/20/2018 Sig: ALBUTEROL SULFATE HFA 90 MCG/* Inhale 2 Puffs as instructed * FLUTICASONE 110 MCG/ACTUATION* Inhale 2 Puffs as instructed * MONTELUKAST 10 MG TABLET Take 1 tablet by mouth daily * MAYRA 60 MG CAP Take 1 capsule by mouth once * FLUTICASONE 50 MCG/ACTUATION * Use 2 Sprays in each nostril * BLOOD-GLUCOSE METER KIT Glucose Meter of Choice - Kit* LANCETS Test blood sugar(s) 2 x daily* BLOOD SUGAR DIAGNOSTIC STRIPS Test blood sugar(s) 2 times d* Problem List As Of Date 08/20/2018 Noted Resolved Asthma in adult [J45.909] INVALID FOR* Allergic rhinitis [J30.9] INVALID FOR* Anxiety [F41.9] INVALID FOR* Mood swings [R45.86] INVALID FOR* Prescriptions ordered this encounter Disp Refills Start End BLOOD-GLUCOSE METER KIT 1 Ea* 0 08/20/2018 08/21/2018 Sig: Glucose Meter of Choice - Kit - Dx: Other DM Code hypoglycemia LANCETS 100 * 11 08/20/2018 Sig: Test blood sugar(s) 2 x daily. Dx: hypoglycemia . Insulin: No BLOOD SUGAR DIAGNOSTIC STRIPS 50 S* 11 08/20/2018 Sig: Test blood sugar(s) 2 times daily. Dx hypoglycemia . Insulin: No Letter Text Low Blood Sugar (Hypoglycemia) Type 2 Diabetes Mellitus 10/10 What is low blood sugar? If you take certain diabetes medications your blood sugar can drop too low. For most people a level of 70mg/dl is too low. Symptoms can be mild or severe. Mild low blood sugar is usually treated with a meal or simple sugars (carbohydrates) like glucose tablets or orange juice. If in doubt, it is better to treat for low blood sugar. Always carry something with you to treat low blood sugar ? especially while driving. Always wear diabetes identification. Anyone who is unconscious or unable to speak should not be given food or drink, call 911 for emergencies. What causes Low Blood Sugars? Taking too much diabetes medication Skipping a meal or eating less carbohydrate than usuall Being more active than usual Signs and Symptoms of Low Blood Sugar Sweaty, shaky, weak, headache, hungry, dizzy, irritable/grouchy, pale, pounding heart. Treatment of Low Blood Sugar When you feel symptoms, do a glucose check. If your glucose is low - eat or drink 15 gms carbohydrate Wait for 15 minutes and do another test. If glucose still low, eat or drink agin. Wait 15 minutes, test again. If your glucose remains low after 3 treatments, call your provider, or call 911. Food Choices for Low Blood Sugar - 15 grams carbohydrate 1/2 cup fruit juice or 1 cup milk or 1/2 cup regular soft drink (not diet) or 3-4 glucose tablets or 2-3 hard candies After the low blood sugar is over ? eat a snack or meal If it is about 1 hour until your next meal, then eat a light snack of (1) carbohydrate serving (15 gm), like 3 byron crackers, or 6 saltines. If it is more than 1 hour until your next meal, then eat a light snack of (1) carbohydrate serving (as above) and (1) low-fat protein (1 oz of cheese, 1 cup skim or 1% milk). Or, you can eat One-half sandwich. If it is time to eat, then eat your regular meal. Encounter Status:Closed by JIN FREIRE CNP on 08/20/18 COMP METABOLIC PANEL Collected: 08/12/2018 Status: F Source: VINCENT 8:18 AM [facility] REPOSITORY TYPE CODE TESTS RESULT OUT OF REFERENCE UNITS RANGE LAB TP 6.3-8.0 g/dL Protein, Total 7.8 LAB ALB 3.9-4.9 g/dL Albumin 4.6 LAB CA 8.5-10.2 mg/dL Calcium, Total 9.7 LAB TBIL 0.2-1.3 mg/dL Bilirubin, Total 0.2 LAB ALKP 34-123 U/L Alkaline Phosphatase 55 LAB AST 13-35 U/L AST 28 LAB GLU 74-99 mg/dL Low Glucose 42 Result Comment: The [place] Diabetes Association (ADA) provides guidance for cutoff values for fasting glucose and random glucose. The ADA defines fasting as no caloric intake for at least 8 hours. Fas ting plasma glucose results between 100 to 125 mg/dL indicate increased risk for diabetes (prediabetes). Fasting plasma glucose results greater than or equal to 126 mg/dL meet the criteria for diagnosis of diabetes. In the absence of unequivocal hyperglycemia, results should be confirmed by repeat testing. In a patient with classic symptoms of hyperglycemia or hyperglycemic crisis, random plasma glucose results greater than or equal to 200 mg/dL meet the criteria for diagnosis of diabetes. Reference: Standards of Medical Care in Diabetes 2016, [place] Diabetes Association. Diabetes Care. 2016.39(Suppl 1). No call per procedure. 08/13/18 0603 J.[facility] LAB BUN 7-21 mg/dL BUN 19 LAB CRET 0.58-0.96 mg/dL Creatinine 0.87 LAB NA 136-144 mmol/L Sodium 142 LAB K 3.7-5.1 mmol/L Potassium 4.4 LAB CL 97-105 mmol/L Chloride 101 LAB CO2 22-30 mmol/L CO2 24 LAB AGAP 9-18 mmol/L Anion Gap 17 LAB ALT 7-38 U/L ALT 17 LAB GFRAA eGFR- Amer. >60 LAB GFRNAA . eGFR-All Other Races >60 Result Comment: eGFR (Estimated GFR) Units of measure: mL/min/1.73 meters squared eGFR is derived from the reexpressed MDRD Study equation using the following parameters: serum creatinine, age, gender and race. The creatinine assay has been calibrated to be traceable to IDMS. An eGFR <60 mL/min/1.73m2 for >3 months is consistent with chronic kidney disease. Refer to KDOQI guidelines for clinical interpretation. In patients with unstable renal function, e.g. those with acute kidney injury, the eGFR may not accurately reflect actual GFR. Performed By: #### CMP #### [facility] [address] [place], [place] [address] LIPID PANEL, NONFAST Collected: 08/12/2018 Status: F Source: VINCENT 8:15 AM [facility] REPOSITORY TYPE CODE TESTS RESULT OUT OF REFERENCE UNITS RANGE LAB CHOLNF <200 mg/dL Total High Cholesterol NF 201 Result Comment: <200 mg/dL, Desirable 200-239 mg/dL, Borderline high >239 mg/dL, High LAB TRIGNF <150 mg/dL Triglycerides, NF 57 Result Comment: <150 mg/dL, Normal 150-199 mg/dL, Borderline high 200-499 mg/dL, High >499 mg/dL, Very high LAB HDLNF >39 mg/dL HDL Cholesterol, NF 96 Result Comment: 40-59 mg/dL, Acceptable >59 mg/dL, High: Negative risk factor for coronary heart disease <40 mg/dL, Low: Positive risk factor for coronary heart disease LAB LDLNF <100 mg/dL LDL Cholesterol, NF 94 Result Comment: <100 mg/dL, Optimal 100-129 mg/dL, Near optimal/above optimal 130-159 mg/dL, Borderline high 160-189 mg/dL, High >189 mg/dL, Very high Secondary prevention optimal LDL Cholesterol levels are recommended to be < 70 mg/dL LAB NOHDLN <130 mg/dL Non HDL Chol, 105 NF Result Comment: <130 mg/dL, Optimal 130-159 mg/dL, Near optimal/above optimal 160-189 mg/dL, Borderline high 190-219 mg/dL, High >219 mg/dL, Very high Secondary prevention optimal non HDL Cholesterol levels are recommended to be < 100 mg/dL LAB VLDLNF <30 mg/dL VLDL Cholesterol, NF 11 LAB TCHDLN <5.10 mg/dL T Chol/HDL Ratio NF 2.09 LAB LDLHDN <2.54 mg/dL LDL/HDL Ratio, NF 0.98 Result Comment: Reference: 1. National Cholesterol Education Program ATP III Guideline At-A-Glance Quick Desk Reference: National Heart, Lung, and Blood [place]. National Institutes of Health. 2001: NIH Publication No. 01-3305. 2. An International Atherosclerosis Society position paper: global recommendations for the management of dyslipidemia: executive summary, Atherosclerosis. 2014: 232(2):410-413. Performed By: #### LIPNF #### [facility] [address] [place], [place] [address] PROGRESS Observed: 08/12/2018 Status: COMPLETED Source: VINCENT 8:09 AM [facility] REPOSITORY HNO ID: [id number] Author: Jin Winchester (Business Intelligence Director) Tani Service: (none) Author Type: Nurse Practitioner Type: Progress Notes Filed: 08/12/2018 8:11 AM Note Text: HPI/CC: Lisha Mcfarland is a 48 year old female who presents for a well adult exam. New concerns today include none - needs refills REVIEW OF SYSTEMS: GENERAL:Denies fever, chills, night sweats, or changes in weight. DERMATOLOGIC: Denies any new skin conditions, rashes or changing moles. EYES: Denies recent visual changes., wears glasses/contacts ENT: Denies hearing loss or tinnitus RESPIRATORY: Denies any cough, dyspnea, or wheezing. CARDIOVASCULAR: Denies any chest pain with exertion or at rest, palpitations, syncope, or edema. BREASTS: Denies any breast lumps, tenderness, dimpling, skin changes, or nipple discharge. GASTROINTESTINAL: Denies any nausea, vomiting, abdominal pain, heartburn, changes in bowel habit, Denies any rectal bleeding. GENITOURINARY: Denies any urinary frequency, urgency, incontinence, dysuria. Denies vaginal odor, discharge or lesions. Denies irregular vaginal bleeding or spotting. No LMP recorded. Patient has had an ablation. BSE? yes Last Pap 06/2018 CREDIT UNDERWRITER: Xiomara Bryant MUSCULOSKELETAL: Denies any joint swelling, crepitus, joint pain, or loss of range of motion., Denies back pain. NEURO: Denies any headaches, tremors, dizziness, vertigo, memory loss, confusion., Denies weakness, numbness or tingling.. PSYCHIATRIC: Denies any sleeping problems, history of abuse, marital discord., Denies any anxiety or depression. HEMATOLOGIC/LYMPHATIC/IMMUNOLOGIC: Denies anemia, bruising, bleeding abnormalities. ENDOCRINE: Denies any heat or cold intolerance, polyuria or polydipsia. HISTORIES PAST MEDICAL HISTORY Diagnosis Date - Anxiety controlled - Asthma - Kidney stones 2011 still 3 remaining, [facility] - Seasonal allergies PAST SURGICAL HISTORY Procedure Laterality Date - OFFICE ENDOMETRIAL ABLATION 01/2012 novasure ablation [facility] FAMILY HISTORY Problem Relation Age of Onset - Stroke Father - other (Brain Tumor) Father Social History Marital status: Spouse name: Years of education: Number of children: Social History Main Topics Smoking status: Never Smoker Smokeless tobacco: Never Used Alcohol use: Yes Comment: 2 0r 3 glasses wine or beer a week Social History Narrative , 2 teenage daughters (Ras and Faith) Current Outpatient Prescriptions on File Prior to Visit: fexofenadine HCl (MAYRA 60 MG CAP) Take 1 capsule by mouth once daily. fluticasone (FLONASE) 50 mcg/actuation nasal spray Use 2 Sprays in each nostril once daily. Rinse mouth after use. No current facility-administered medications on file prior to visit. ALLERGIES Allergen Reactions - Seasonal Allergies Other: See Comments Sneezing, SOB OBJECTIVE/PHYSICAL EXAMINATION: BP 94/58 (BP Site: Left Arm, BP Position: Sitting, BP Cuff Size: Regular Adult) Pulse 60 Resp 14 Ht 155.6 cm (5' 1.25) Wt 57.6 kg (127 lb) BMI 23.80 kg/m? General appearance: Well appearing, alert, in no acute distress, well-hydrated, well nourished. Skin: Skin color, texture, turgor normal, no suspicious rashes or lesions Head: Normocephalic, no masses, lesions, tenderness or abnormalities Eyes: Anicteric sclera. Pupils are equally round and reactive to light. Extraocular movements are intact. Ears: External ears normal, canals clear, TM's normal Nose/Sinuses: Nares normal, septum midline, mucosa normal, no drainage or sinus tenderness Oropharynx: Lips, mucosa, and tongue normal, teeth and gums normal, oropharynx normal Neck: Supple, no adenopathy; thyroid symmetric, normal size, no bruits Back: Normal exam Lungs: Lungs clear to auscultation. No wheezing, rhonchi, rales Heart: regular rate and rythm without murmur, normal S1 and S2 Breasts: deferred Abdomen: Normal abdominal exam, Abdomen soft, non-tender. Bowel sounds normal. No masses, organomegaly Extremities: No deformities, edema, skin discoloration, clubbing or cyanosis. Good capillary refill. Musculoskeletal: Spine range of motion normal. Muscular strength intact, No joint swelling, deformity, or tenderness Peripheral pulses: Normal Neuro:Awake, alert and oriented x 3, Cranial nerves II-XII grossly intact, Reflexes symmetrical, Normal gait and No involuntary motions. Pelvic: Deferred ASSESSMENT/PLAN: 1. Well adult on routine health check - ICD9: V70.0, ICD10: Z00.00 (primary diagnosis) - Encouraged monthly Breast Self Exam - Check CMP and lipid panel - Vaccination(s) recommended today of Influenza and Tdap- declined - Follow up for annual exam in one year. - LIPID PANEL BASIC - COMP METABOLIC PANEL 2. Mild intermittent asthma in adult without complication - ICD9: 493.90, ICD10: J45.20 Mild intermittent Asthma stable - Continue current meds - Avoidance of triggers recommended - ALBUTEROL SULFATE HFA 90 MCG/ACTUATION AEROSOL INHALER - FLUTICASONE 110 MCG/ACTUATION HFA AEROSOL INHALER 3. Allergic asthma, moderate persistent, uncomplicated - ICD9: 493.00, ICD10: J45.40 - as above - MONTELUKAST 10 MG TABLET Jin Freire APRN.CNP CNOV Observed: 08/12/2018 Status: COMPLETED Source: VINCENT 7:40 AM [facility] REPOSITORY Office Visit (FAMPWS) LISHA MCFARLAND ([id number]) 1970 F Date Time Provider Department 08/12/18 7:40 AM JIN FREIRE (SANDIE) FAMPWS During your visit today, we recorded the following information about you: Pulse Respiration Blood pressure Weight 60/minute 14/minute 94/58 57.6 kg Height 1.556 m Jin Freire APRN.CNP 08/12/2018 8:11 AM Signed HPI/CC: Lisha Mcfarland is a 48 year old female who presents for a well adult exam. New concerns today include none - needs refills REVIEW OF SYSTEMS: GENERAL:Denies fever, chills, night sweats, or changes in weight. DERMATOLOGIC: Denies any new skin conditions, rashes or changing moles. EYES: Denies recent visual changes., wears glasses/contacts ENT: Denies hearing loss or tinnitus RESPIRATORY: Denies any cough, dyspnea, or wheezing. CARDIOVASCULAR: Denies any chest pain with exertion or at rest, palpitations, syncope, or edema. BREASTS: Denies any breast lumps, tenderness, dimpling, skin changes, or nipple discharge. GASTROINTESTINAL: Denies any nausea, vomiting, abdominal pain, heartburn, changes in bowel habit, Denies any rectal bleeding. GENITOURINARY: Denies any urinary frequency, urgency, incontinence, dysuria. Denies vaginal odor, discharge or lesions. Denies irregular vaginal bleeding or spotting. No LMP recorded. Patient has had an ablation. BSE? yes Last Pap 06/2018 CREDIT UNDERWRITER: Xiomara Bryant MUSCULOSKELETAL: Denies any joint swelling, crepitus, joint pain, or loss of range of motion., Denies back pain. NEURO: Denies any headaches, tremors, dizziness, vertigo, memory loss, confusion., Denies weakness, numbness or tingling.. PSYCHIATRIC: Denies any sleeping problems, history of abuse, marital discord., Denies any anxiety or depression. HEMATOLOGIC/LYMPHATIC/IMMUNOLOGIC: Denies anemia, bruising, bleeding abnormalities. ENDOCRINE: Denies any heat or cold intolerance, polyuria or polydipsia. HISTORIES PAST MEDICAL HISTORY Diagnosis Date - Anxiety controlled - Asthma - Kidney stones 2011 still 3 remaining, [facility] - Seasonal allergies PAST SURGICAL HISTORY Procedure Laterality Date - OFFICE ENDOMETRIAL ABLATION 01/2012 novasure ablation [facility] FAMILY HISTORY Problem Relation Age of Onset - Stroke Father - other (Brain Tumor) Father Social History Marital status: Spouse name: Years of education: Number of children: Social History Main Topics Smoking status: Never Smoker Smokeless tobacco: Never Used Alcohol use: Yes Comment: 2 0r 3 glasses wine or beer a week Social History Narrative , 2 teenage daughters (Ras and Faith) Current Outpatient Prescriptions on File Prior to Visit: fexofenadine HCl (MAYRA 60 MG CAP) Take 1 capsule by mouth once daily. fluticasone (FLONASE) 50 mcg/actuation nasal spray Use 2 Sprays in each nostril once daily. Rinse mouth after use. No current facility-administered medications on file prior to visit. ALLERGIES Allergen Reactions - Seasonal Allergies Other: See Comments Sneezing, SOB OBJECTIVE/PHYSICAL EXAMINATION: BP 94/58 (BP Site: Left Arm, BP Position: Sitting, BP Cuff Size: Regular Adult) Pulse 60 Resp 14 Ht 155.6 cm (5' 1.25) Wt 57.6 kg (127 lb) BMI 23.80 kg/m? General appearance: Well appearing, alert, in no acute distress, well-hydrated, well nourished. Skin: Skin color, texture, turgor normal, no suspicious rashes or lesions Head: Normocephalic, no masses, lesions, tenderness or abnormalities Eyes: Anicteric sclera. Pupils are equally round and reactive to light. Extraocular movements are intact. Ears: External ears normal, canals clear, TM's normal Nose/Sinuses: Nares normal, septum midline, mucosa normal, no drainage or sinus tenderness Oropharynx: Lips, mucosa, and tongue normal, teeth and gums normal, oropharynx normal Neck: Supple, no adenopathy; thyroid symmetric, normal size, no bruits Back: Normal exam Lungs: Lungs clear to auscultation. No wheezing, rhonchi, rales Heart: regular rate and rythm without murmur, normal S1 and S2 Breasts: deferred Abdomen: Normal abdominal exam, Abdomen soft, non-tender. Bowel sounds normal. No masses, organomegaly Extremities: No deformities, edema, skin discoloration, clubbing or cyanosis. Good capillary refill. Musculoskeletal: Spine range of motion normal. Muscular strength intact, No joint swelling, deformity, or tenderness Peripheral pulses: Normal Neuro:Awake, alert and oriented x 3, Cranial nerves II-XII grossly intact, Reflexes symmetrical, Normal gait and No involuntary motions. Pelvic: Deferred ASSESSMENT/PLAN: 1. Well adult on routine health check - ICD9: V70.0, ICD10: Z00.00 (primary diagnosis) - Encouraged monthly Breast Self Exam - Check CMP and lipid panel - Vaccination(s) recommended today of Influenza and Tdap- declined - Follow up for annual exam in one year. - LIPID PANEL BASIC - COMP METABOLIC PANEL 2. Mild intermittent asthma in adult without complication - ICD9: 493.90, ICD10: J45.20 Mild intermittent Asthma stable - Continue current meds - Avoidance of triggers recommended - ALBUTEROL SULFATE HFA 90 MCG/ACTUATION AEROSOL INHALER - FLUTICASONE 110 MCG/ACTUATION HFA AEROSOL INHALER 3. Allergic asthma, moderate persistent, uncomplicated - ICD9: 493.00, ICD10: J45.40 - as above - MONTELUKAST 10 MG TABLET ZECHARIAH Carr APRN.CNP 08/12/2018 8:15 AM Signed Addended by: JIN FREIRE CNP on: 08/12/2018 08:15 AM Modules accepted: Orders Referring Provider: RAS SMITH [[id number]] Allergies As of Date: 08/12/2018 Noted Allergy Reaction SEASONAL ALLERGIES 05/15/2018 14 - Other: See Comments Comments: Sneezing, SOB Date Reviewed: 08/12/2018 Reviewed by: Yanet Robin LPN - Fully Assessed Reason for Visit: Physical [83] Primary Visit Diagnosis:Well adult on routine health check [Z00.00] Other Visit Diagnoses:Mild intermittent asthma in adult without complication [J45.20] Allergic asthma, moderate persistent, uncomplicated [J45.40] Order(s):albuterol HFA (PROVENTIL HFA, VENTOLIN HFA) 90 mcg/actuation inhalerInhale 2 Puffs as instructed every 6 hours as needed for Wheezing/Shortness of Breath.Disp: 1 InhalerRfl: 0 fluticasone (FLOVENT HFA) 110 mcg/actuation inhalerInhale 2 Puffs as instructed twice daily.Disp: 1 InhalerRfl: 5 montelukast (SINGULAIR) 10 mg tabletTake 1 tablet by mouth daily at bedtime.Disp: 90 tabletRfl: 3 LIPID PANEL BASIC [SQLIPB] Order #: [id number] FUTURE COMP METABOLIC PANEL [SQCMP] Order #: [id number] FUTURE LIPID PANEL, NONFASTING [SQLIPNF] Order #: [id number] FUTURE Prescriptions as of 08/12/2018 Sig: ALBUTEROL SULFATE HFA 90 MCG/* Inhale 2 Puffs as instructed * FLUTICASONE 110 MCG/ACTUATION* Inhale 2 Puffs as instructed * MONTELUKAST 10 MG TABLET Take 1 tablet by mouth daily * MAYRA 60 MG CAP Take 1 capsule by mouth once * FLUTICASONE 50 MCG/ACTUATION * Use 2 Sprays in each nostril * Problem List As Of Date 08/12/2018 Noted Resolved Asthma in adult [J45.909] INVALID FOR* Allergic rhinitis [J30.9] INVALID FOR* Anxiety [F41.9] INVALID FOR* Mood swings [R45.86] INVALID FOR* Prescriptions ordered this encounter Disp Refills Start End ALBUTEROL SULFATE HFA 90 MCG/ACTUATI* 1 In* 0 08/12/2018 Route: INHALATION Sig: Inhale 2 Puffs as instructed every 6 hours as needed for Wheezing/Shortness of Breath. FLUTICASONE 110 MCG/ACTUATION HFA AE* 1 In* 5 08/12/2018 Route: INHALATION Sig: Inhale 2 Puffs as instructed twice daily. MONTELUKAST 10 MG TABLET 90 t* 3 08/12/2018 Route: ORAL Sig: Take 1 tablet by mouth daily at bedtime. Medications Discontinued During This Encounter guaiFENesin (MUCINEX) 600 mg 12 hr t* 30 t* 0 07/01/2018 08/12/2018 Route: ORAL Sig: Take 2 tablets by mouth twice daily. Disc: Course of therapy completed fluticasone-salmeterol (ADVAIR) 100-* 3 In* 3 09/24/2017 08/12/2018 Route: INHALATION Sig: Inhale 1 Puff as instructed twice daily. Disc: Course of therapy completed benzonatate (TESSALON PERLE) 100 mg * 60 c* 0 07/01/2018 08/12/2018 Route: ORAL Sig: Take 1 capsule by mouth three times daily as needed. Disc: Course of therapy completed benzonatate (TESSALON PERLE) 100 mg * 30 c* 0 07/23/2017 08/12/2018 Route: ORAL Sig: Take 2 capsules by mouth three times daily as needed. Patient not taking: Reported on 12/07/2017 Disc: Course of therapy completed albuterol HFA (PROAIR HFA) 90 mcg/ac* 3 In* 0 06/16/2017 08/12/2018 Route: INHALATION Sig: Inhale 2 Puffs as instructed every 4 hours as needed. Disc: Course of therapy completed albuterol HFA (PROVENTIL HFA, VENTOL* 1 In* 0 07/01/2018 08/12/2018 Route: INHALATION Sig: Inhale 2 Puffs as instructed every 6 hours as needed for Wheezing/Shortness of Breath. Disc: Reason for discontinue is not on file. fluticasone (FLOVENT HFA) 110 mcg/ac* 1 In* 5 07/01/2018 08/12/2018 Route: INHALATION Sig: Inhale 2 Puffs as instructed twice daily. Disc: Reason for discontinue is not on file. montelukast (SINGULAIR) 10 mg tablet 90 t* 3 06/16/2017 08/12/2018 Route: ORAL Sig: Take 1 tablet by mouth daily at bedtime. Disc: Reason for discontinue is not on file. Encounter Status:Closed by JIN FREIRE CNP on 08/12/18 DIRECTOR OF ESTATE OFFICE VISIT Observed: 07/15/2018 Status: F Source: [place] REPORT 9:15 AM [facility] REPOSITORY [facility] 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 Is patient in pain?: No [...] at home: Yes additional social history: [employer]- [employer] Word [employer] Patient works at [employer] Pregancy History 2 Elective abortions Hx Para [...] alert, oriented to person, oriented to place [facility] Head: normal to inspection Neck Neck: normal [...] Pap smear for cervical cancer screening Z12.4 18 0915 <Electronically signed by Xiomara SANTOS> Date Xiomara SANTOS Cosigner Signature: Date (if applicable) CC: PAP IG HPV APTIMA Collected: 07/15/2018 Status: F Source: [place]IYAH 16/18,45 8:15 AM [facility] REPOSITORY Order Comment: CYTOLOGY INFORMATION: - CLINICAL INFORMATION: ANNUAL - DATE LMP/MENOPAUSE: - COLLECTION VIAL: Thin Prep Vial - CREDIT UNDERWRITER SOURCE: CERVICAL - COLLECTION TECHNIQUE: BRUSH/SPATULA Specimen Comment: [id number] Specimen Comment: Source.............Cervix Specimen Comment: No. of containers..01 ThinPrep Vial TYPE CODE TESTS RESULT OUT OF RANGE REFERENCE UNITS LAB L7400.0800 . Normal DIAGN Comment Result Comment: NEGATIVE FOR INTRAEPITHELIAL LESION AND MALIGNANCY. LAB L7400.0900 . Normal ADEQ Comment Result Comment: Satisfactory for evaluation. No endocervical component is identified. LAB L7400.1400 . Normal PERFORM Comment Result Comment: Katt Gonzalez, Report Developer (ASCP) LAB L7400.2575 . Normal TEST METHOD [...] types (16/18/31/33/35/39/45/ 51/52/56/58/59/66/68) without differentiation. Performed at: [facility] [address] [id number] [place] Pinner: Rubina Bah MD, Phone: [phone] Performed at: =[facility] [address] [id number] [place]: Rubina Bah MD, Phone: [phone] Performed By: #### L7400.0280 #### [facility] (refer to report for specific site) refer to report for address and phone number PROGRESS Observed: 07/01/2018 Status: COMPLETED Source: [place] 12:52 PM [facility] REPOSITORY HNO ID: [id number] Author: Katt Giang Service: (none) Author Type: [...] - Kidney stones 2011 still 3 remaining, [facility] - Seasonal allergies PAST SURGICAL HISTORY Procedure Laterality Date - OFFICE ENDOMETRIAL ABLATION 01/2012 novasure ablation [facility] [place] ALLERGIES Seasonal Allergies MEDICATIONS fexofenadine HCl (MAYRA [...] 2V FRONTAL/LAT Observed: 07/01/2018 Status: F Source: [place] 8:23 AM [facility] REPOSITORY * * *Final Report* * * [...] Other: . IMPRESSION: No acute radiographic abnormality. Nanosystems Engineer: PSCB Transcribe Date/Time: Jul 01 2018 8:26A Dictated by : JAUN MCMAHON MD This examination was interpreted and the report reviewed and electronically signed by: JAUN MCMAHON MD on Jul 01 2018 8:26AM EST [id number] PROGRESS Observed: 07/01/2018 Status: COMPLETED Source: [place] 8:13 AM [facility] REPOSITORY HNO ID: [id number] Author: Chhaya Winchester () Esteban Duran Service: (none) Author Type: Critical Systems Technician Type: Progress Notes Filed: 07/01/2018 8:23 AM [...] AM CNOV Observed: 07/01/2018 Status: COMPLETED Source: [place] 7:45 AM [facility] REPOSITORY Office Visit (WSTR) LISHA MCFARLAND ([id number]) 1970 F Date Time Provider Department 07/01/18 7:45 AM KATT GIANG [facility] During your visit today, we recorded the following information about you: Temperature Pulse Respiration Blood pressure 97.6 degrees 71/minute 18/minute 102/70 Weight 59.6 kg Katt Giang APRN.[facility] 07/01/2018 8:12 AM Signed [facility] PATIENT [...] to anyone within 6 feet. Katt Giang APRN.ASSOCIATE SCHOOL PSYCHOLOGIST 07/01/2018 12:55 PM Signed Subjective HPI Pt [...] - Kidney stones 2011 still 3 remaining, [facility] - Seasonal allergies PAST SURGICAL HISTORY Procedure Laterality Date - OFFICE ENDOMETRIAL ABLATION 01/2012 novasure ablation [facility] [place] ALLERGIES Seasonal Allergies MEDICATIONS fexofenadine HCl (MAYRA [...] in agreement with plan of care. Katt Giagn CNP Referring Provider: SELF [200] Allergies As of Date: 07/01/2018 Noted Allergy Reaction SEASONAL ALLERGIES 05/15/2018 14 - Other: See Comments Comments: Sneezing, SOB Date Reviewed: 07/01/2018 Reviewed by: Melissa Dnaiels LPN - Fully Assessed Reason for Visit: [...] 1 InhalerRfl: 5 XR CHEST 2V FRONTAL/LAT [[id number]] Order #: [id number] FUTURE Inhalational Spacing Device spcr1 Device one [...] DEVICE 1 Ea* 0 07/01/2018 07/01/2018 Route: Misc Si Device one time only for 1 [...] MAMM (CAD), Observed: 06/30/2018 Status: F Source: [facility] 4:56 PM [facility] REPOSITORY [facility] Imaging Services [address] [place] [address] SCREENING MAMM (CAD), BIL MR#: [id number] Acct: [id number] Name: LISHA MCFARLAND Rep #: [id number] : 1970 F 48 From: Roland Goyal MD PCP: Ras Almeida DO Status: REG CLI Study: SCREENING MAMM (CAD), BILAT Date of Exam: 06/30/18 Exam# [id number] Ordering Dr: Xiomara Bryant STRIP MINE SUPERVISOR-C MAMMOGRAPHY - BILATERAL SCREENING REASON FOR EXAM: [...] delay biopsy of a clinically suspicious abnormality. [id number] Electronically Signed: Roland Goyal MD at 14:47 EST Tel [phone], Service support , CC: KSENIA Bryant; Ras Almeida DO Nanosystems Engineer: Signed PROGRESS Observed: 05/15/2018 Status: COMPLETED Source: [place] 1:11 PM [facility] REPOSITORY O ID: [id number] Author: Demetrice Haddad Service: (none) Author Type: Physician Central Office Equipment Engineer Type: Progress Notes Filed: 05/15/2018 1:55 PM [...] - Kidney stones 2011 still 3 remaining, [facility] - Seasonal allergies ALLERGIES Seasonal Allergies [...] issues and agrees with the plan. Demetrice Haddad PA-C CNOV Observed: 05/15/2018 Status: COMPLETED Source: [place] 1:00 PM [facility] REPOSITORY Office Visit (WSTR) LISHA MCFARLAND ([id number]) 1970 F Date Time Provider Department 05/15/18 1:00 PM [facility]ADDAD[facility] During your visit today, we recorded the following information about you: Temperature Pulse Respiration Blood pressure 98.2 degrees 63/minute 16/minute 112/68 Weight 56.5 kg Demetrice Haddad PA-C 05/15/2018 1:55 PM Signed 05/15/2018 Patient [...] - Kidney stones 2011 still 3 remaining, [facility] - Seasonal allergies ALLERGIES Seasonal Allergies [...] CHRISTIN. Mild edema inferior to lower eyelids HCRISTIN. No erythema or warmth. NOSE/SINUS Nares normal. [...] issues and agrees with the plan. Demetrice Haddad PA-C Referring Provider: SELF [200] Allergies As [...] mouth after use. Encounter Status:Closed by DEMETRICE HADDAD PA-C on 05/15/18 PROGRESS Observed: 12/07/2017 Status: COMPLETED Source: [place] 11:15 AM [facility] REPOSITORY HNO ID: [id number] Author: Flory Dennis (Business Intelligence Director) Service: (none) Author Type: Nurse Practitioner Type: [...] Patient agreeable to treatment plan. Flory Dennis APRN.CNP CNOV Observed: 12/07/2017 Status: COMPLETED Source: [place] 11:00 AM [facility] REPOSITORY Office Visit (WSTR) LISHA MCFARLAND ([id number]) 1970 F Date Time Provider Department 12/07/17 11:00 AM FLORY DENNIS) [facility] During your visit today, we recorded the following information about you: Temperature Pulse Respiration Blood pressure 98.4 degrees 68/minute 16/minute 98/62 Weight 58.6 kg Flory Dennis) 12/07/2017 12:19 PM Signed CC: Patient presents [...] and not with prostate problems can try wbqh-daf-qtjgroq Coricidin HBP for congestion. 5) For nasal [...] and not with prostate problems can try jffe-bvi-gbtwhid Coricidin HBP for congestion. 5) For nasal [...] 12/07/17 PROGRESS Observed: 10/23/2017 Status: COMPLETED Source: [place] 6:10 PM [facility] REPOSITORY O ID: [id number] Author: Liliana (Sandie) YEFRI Henao.SANDIE Service: (none) [...] - Kidney stones 2011 still 3 remaining, [facility] - Seasonal allergies PAST SURGICAL HISTORY Procedure Laterality Date - OFFICE ENDOMETRIAL ABLATION 01/2012 novasure ablation [facility] [place] ALLERGIES Review of patient's allergies indicates no [...] agreeable to treatment plan. Liliana Henao APRN.SANDIE BOSWELL Observed: 10/23/2017 Status: COMPLETED Source: [place] 5:15 PM [facility] REPOSITORY Office Visit (WSTR) LISHA MCFARLAND ([id number]) 1970 F Date Time Provider Department 10/23/17 5:15 PM LILIANA HENAO) [facility] During your visit today, we recorded [...] health care provider may recommend treatment with dvxt-jen-ymfyqsd medications for cold and allergy, nasal saline [...] include nasal congestion, runny nose, post-nasal drip (kvlj-ot-frsn release of nasal fluid into the back [...] in Children and Adults. Clinical Infectious Diseases; 2012;54(8):9262-1745. ? Scot Alves, Sinusitis: Allergies, antibiotics, aspirin, asthma. [facility] Journal of Medicine 2006; 73(7): 671-678 ? National [place] of Allergy and Infectious Diseases. Sinusitis (Sinus Infection) Accessed 06/13/2015. ? [place] Academy of Allergy, Asthma, and Immunology. Sinusitis Accessed 06/13/2015. ? [place] College of Allergy, Asthma ANDamp; Immunology. Sinus Information Accessed 06/13/2015. ? Jaleesa Fay., Prevalence of migraine in patients with a history of self-reported or physician-diagnosed ANDquot;sinusANDquot; headache. Arch [employer] Crab Med, 2004. 164(16):1769-72. ? Copyright 7591-2320 The [facility]. All rights reserved. Liliana Henao APRN.SANDIE, YEFRI.SANDIE 10/23/2017 6:15 PM Signed Subjective HPI Patient [...] - Kidney stones 2011 still 3 remaining, [facility] - Seasonal allergies PAST SURGICAL HISTORY Procedure Laterality Date - OFFICE ENDOMETRIAL ABLATION 01/2012 novasure ablation [facility] ALLERGIES Review of patient's allergies [...] Reviewed: 10/23/2017 Reviewed by: Liliana (Sandie) YEFRI Henao.SANDIE - Fully Assessed Reason for Visit: sinus [...] health care provider may recommend treatment with smdr-vwj-pndlwbc medications for cold and allergy, nasal saline [...] nasal congestion, runny nose, post- nasal drip (sjbi-nt-tqkf release of nasal fluid into the back [...] in Children and Adults. Clinical Infectious Diseases; 2012;54(8):0278-8069. ? Scot Alves, Sinusitis: Allergies, antibiotics, aspirin, asthma. [facility] Journal of Medicine 2006; 73(7): 671-678 ? National [place] of Allergy and Infectious Diseases. Sinusitis (Sinus Infection) Accessed 06/13/2015. ? [place] Academy of Allergy, Asthma, and Immunology. Sinusitis Accessed 06/13/2015. ? [place] College of Allergy, Asthma AND Immunology. Sinus Information Accessed 06/13/2015. ? Gail Fay, Prevalence of migraine in patients with a history of self-reported or physician-diagnosed sinus headache. Arch [employer] Cr[employer] Med, 2004. 164(16):1769-72. ? Copyright 8638-2167 The [facility]. All rights reserved. Prescriptions ordered this encounter Disp Refills Start End AMOXICILLIN 875 MG-POTASSIUM CLAVULA* 20 t* 0 10/23/2017 11/02/2017 Route: ORAL Sig: Take 1 tablet by mouth twice daily for 10 days. Encounter Status:Closed by LILIANA HENAO CNP on 10/23/17 ALLERGIES ALLERGIES DATE TYPE / CODE NAME / CODE REACTION SEVERITY SOURCE 07/15/2018 Drug No Known Unknown [facility] Allergy/416 Allergies/B11258 Hospital 004632(SNOM 0388(RXNORM) Repository ED CT) 05/15/2018 Environ/420 SEASONAL OTHER: SEE C [facility] 358640(SNOM ALLERGIES [place] ED CT) Repository Drug NO KNOWN [facility] Class/79721 ALLERGIES [place] 1003(SNOMED Repository CT) ENCOUNTERS ENCOUNTERS ADMIT/DISCHARGE ACCOUNT ADMITTING ENCOUNTER LOCATION SOURCE NUMBER CLASS 08/20/2018/08/20/19 [id number] Ambulatory [address] [place] Repository 08/20/2018/08/21/19 [id number] Ambulatory [address] [place] Repository 08/12/2018/08/12/19 [id number] Ambulatory [address] [place] Repository 08/12/2018/08/13/19 [id number] Ambulatory [address] [place] Repository 07/15/2018 [id number] Ambulatory [facility] ing:LABSPEC Repository 07/15/2018/07/15/20 [id number] Ambulatory BMSBuilding:B Aliyah [address] Repository 07/01/2018/07/01/20 [id number] Ambulatory [address] Repository 07/01/2018/07/02/20 [id number] Ambulatory [address] Repository 06/30/2018 [id number] Ambulatory [facility] ing:OPBI Repository 05/15/2018/05/18/20 [id number] Ambulatory [address] Repository 12/07/2017/12/10/19 [id number] Ambulatory [address] Repository 10/23/2017/10/24/19 [id number] Ambulatory [address] Repository PAYERS PAYERS ENCOUNTER GUARANTOR PAYER SUBSCRIBER SOURCE 07/15/2018 LISHA [id number] Primary LISHA L WELTYDOB: [place]OD Insurance:[id number] [address]Owq: (330) Number: Repository [phone] () [id number] Date:[id number] [place] [id number]: 07/15/2018 Secondary NOT GIVENUNK [place] Insurance:SELF PAY [facility] Number: Effective Repository Date:2018-07-15 07/15/2018 LISHA L [id number] Primary LISHA L WELTYDOB: [place]ILDWOOD Insurance:MEDICAL [id number] [address]Qlq: (330) Number: Repository [phone] () [id number] Date:[id number] [place] [id number]: 07/15/2018 Secondary NOT GIVENUNK [place] Insurance:SELF PAY [facility] Number: Effective Repository Date:2018-06-12 06/30/2018 LISHA L [id number] Primary LISHA L WELTYDOB: [place] Insurance:MEDICAL [id number] [address]Icv: (330) Number: Repository [phone] () [id number] Date:[id number], [place] [address]GU: 06/30/2018 Secondary NOT GIVENUNK Aliyah Insurance:SELF [facility]: Effective Repository Date:2018-05-20
== END ==
PROVIDERS: Referring Provider Nurse Practitioner Women's Health; Visit Provider Nurse Practitioner Women's Health
DX: Z12.4 Encounter for screening for malignant neoplasm of cervix (principal)
CPT/HCPCS: 87624; 88175; G0145

== ENCOUNTER → 2019-08-05 16:45 | Outpatient (CLI) | payer OTHER, SELFPAY ==
[2019-07-21 08:19] VITALS: BMI 24.0
--- NOTE | 2019-08-05 16:46 | BI_ITS ---
MAMMOGRAPHY - BILATERAL SCREENING 3-D TOMOSYNTHESIS REASON FOR EXAM: Female, 49 years old. HX OF MAT AUNT AGE 60''S MAT COUSIN AGE 30''S FATAL -- PT HAD BILAT IMPLANTS 11/2016 PERTINENT HISTORY: No significant family history. TECHNIQUE: 2-D mammograms and 3-D Tomosynthesis of the breast (s) were performed. CAD was performed. COMPARISON: June 30, 2018. FINDINGS: The breast composition is composed of scattered fibroglandular density. The implants appear intact. Scattered benign calcifications are seen. No dense spiculated masses or suspicious microcalcifications are identified. No architectural distortion is identified. There is no skin thickening or retraction. There has been no significant change since the prior study. BI/SCREEN MAMM (CAD) W/SHANNAN BILAT IMPRESSION: No mammographic signs of malignancy. Routine yearly mammograms recommended. ASSESSMENT CATEGORY: BIRADS Category 2: Benign. A letter regarding these results will be sent to the patient by the facility within 30 days. FOLLOW UP RECOMMENDATION: Yearly follow up mammogram recommended. (A) Approximately 10% of breast cancers are not detected by mammography. A normal mammogram should not delay biopsy of a clinically suspicious abnormality. Electronically Signed: Ariel Hill MD at 8:15 EST , Service support ,
== END ==
PROVIDERS: Family Provider Student in an Organized Health Care Education/Training Program; PCP Student in an Organized Health Care Education/Training Program; Referring Provider Nurse Practitioner Women's Health; Visit Provider Nurse Practitioner Women's Health
DX: Z12.31 Encounter for screening mammogram for malignant neoplasm of breast (principal)
CPT/HCPCS: 77063; 77067

== ENCOUNTER → 2019-12-29 09:17 | Outpatient (CLI) | payer OTHER, SELFPAY ==
[2019-12-28 14:17] VITALS: BMI 24.0
--- NOTE | 2019-12-29 09:19 | US_ITS ---
STUDY: ULTRASOUND BREAST - LEFT REASON FOR EXAM: Female, 49 years old. Abnormal screening mammogram. TECHNIQUE: Axial and longitudinal images of the LEFT breast were performed with a high resolution ultrasound transducer. # OF IMAGES: 24 COMPARISON: Comparison is made with prior mammogram dated December 29, 2019. FINDINGS: LEFT Breast: The palpable abnormality corresponds to a 7 mm x 7 mm x 4 mm complex solid and cystic density at the 6:00 position the breast adjacent to the retroareolar region. A biopsy is recommended. US/Breast Limited Unilateral IMPRESSION: The palpable abnormality corresponds to a 7 mm x 7 mm x 4 mm complex solid and cystic nodule. A biopsy is recommended for further evaluation. ASSESSMENT CATEGORY: BIRADS Category 4: Suspicious - Biopsy Should Be Considered. A letter regarding these results will be sent to the patient by the facility within 30 days. Electronically Signed: Roland Goyal, at 14:37 EDT , Service support ,
--- NOTE | 2019-12-29 09:19 | BI_ITS ---
MAMMOGRAPHY - UNILATERAL DIAGNOSTIC: LEFT BREAST REASON FOR EXAM: Female, 49 years old. Left breast lump. Bilateral breast implants. PERTINENT HISTORY: Aunt with breast cancer. TECHNIQUE: Digital unilateral breast swetha (3D mammographic acquisition) in the CC and MLO projections. 2-D mediolateral oblique (MLO) and craniocaudad (CC) views of both breasts were obtained. CAD: Full Field Digital Mammography with Computer Added Detection was performed. COMPARISON: Comparison is made with prior examination dated August 05, 2019. FINDINGS: Breast Composition: The breasts are heterogeneously dense, which may obscure small masses. There are no dominant masses or suspicious calcifications. Stable appearance of the bilateral breast implants. No other significant abnormalities are identified. There has been no significant change since the prior study. BI/DIAG MAMM W/CAD, UNILAT IMPRESSION: Stable unilateral diagnostic mammogram. With the patient''s history of a palpable lump in the left breast, correlation with ultrasound is recommended. ASSESSMENT CATEGORY: BIRADS Category 0: Incomplete. Need additional imaging evaluation. A letter regarding these results will be sent to the patient by the facility within 30 days. Approximately 10% of breast cancers are not detected by mammography. A normal mammogram should not delay biopsy of a clinically suspicious abnormality. Electronically Signed: Roland Goyal, at 10:20 EDT , Service support ,
== END ==
PROVIDERS: PCP Student in an Organized Health Care Education/Training Program; Referring Provider Obstetrics & Gynecology; Visit Provider Obstetrics & Gynecology
DX: N63.20 Unspecified lump in the left breast, unspecified quadrant (principal)
CPT/HCPCS: 76642; 77061; 77065; G0279

== ENCOUNTER 2020-01-12 07:44 | Day surgery (SDC) | payer OTHER, SELFPAY ==
[2019-08-23 08:41] VITALS: BMI 23.0
--- NOTE | 2019-08-23 09:42 | HP_ITS ---
Intake Vital Signs 08/23/19 Height 5 ft 2 in 08/23/19 Weight: 126 lb 08/23/19 BP 129/76 H 08/23/19 Blood Pressure Location Rt brachial 08/23/19 Position Sitting 08/23/19 Respiration 18 08/23/19 BMI 24.0 Intake Visit Reasons: Colonoscopy consult Chief Complaint: NEW annual Psychological Tests Sales Agent Required: No Is patient in pain?: No Allergies No Known Allergies Allergy (Verified 08/23/19 08:41) Medications fexofenadine 180 mg tablet 180 mg PO DAILY 07/15/18 [History Confirmed 08/23/19] montelukast 10 mg tablet 10 mg PO QPM 07/15/18 [History Confirmed 08/23/19] PFSH Surgical History uterine ablation (Acute) Family History Father Heart disease Grandmother Colon cancer Unknown Breast cancer Social History (Updated 08/23/19 @ 09:42 by Nnamdi Mccracken MD) Smoking Status: Never smoker alcohol intake: current details: social substance use type: does not use caffeine: Yes what type of physical activity do you participate in: walking seatbelt use: always do you feel safe at home: Yes additional social history: Nikolay- [employer] 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 The patient reports that she has never had any blood in her stool or abdominal pain. The patient does not have immediate family history of colon cancer but does have history of colon cancer in her grandmother. She is never had a colonoscopy in the past. ROS General General: No weight change or fatigue Cardio Cardiovascular: No murmur, pacemaker, heart disease, atrial fibrillation, high blood pressure, heart attack, heart stent, palpitations, shortness of breat with exertion or chest pain Psych Psychiatric: No depression or anxiety Resp Respiratory: No shortness of breath, No sleep apnea, No cough, No COPD, No asthma, No emphysema, No wheezing Gastro Gastrointestinal: No abdominal pain, No nausea or vomiting, No diarrhea, No constipation, No blood in stool, No acid reflux, No hemorrhoids, No ulcers, No gallbladder problem, No black,tarry stools Art Hematologic: No blood thinners Exam Const General: cooperative Orientation: alert, oriented x3 Resp Effort & Inspection: normal respiratory effort Auscultation: clear to auscultation bilaterally Cardio Rate: regular rate Rhythm: regular rhythm Heart Sounds: no murmurs GI Inspection: non-distended Palpation: soft, nontender Assessment & Plan Problems 1. Screen for colon cancer Z12.11 Plan Patient here for screening colonoscopy consult. The patient has no abdominal pain or blood in her stool. Only family history is in her grandmother. Patient has never had a colonoscopy in the past. I explained endoscopy in detail to the patient. I explained the risks including but not limited to stroke or heart attack with anesthesia, perforation of the GI tract, bleeding, infection. I explained that any of these could necessitate further emergency surgery. The patient understands and all questions were answered sufficiently. The patient wishes to proceed with procedure. Nnamdi Mccracken MD Pager: [facility] [address] [place] [address], [address] [place] [address] Office: Orders Orders: Colonoscopy Today Z12.11 Coding Level of Care Code Off vis,new,level 2 Diagnoses Screen for colon cancer Z12.11 08/23/19 0943 <Electronically signed by Nnamdi duke MD> Date _ Nnamdi Mccracken MD
[2019-12-31 09:48] VITALS: BMI 24.0
[2020-01-12 08:01] VITALS: BP 116/64; PULSE 50; RESP 16; TEMP 36.7; O2SAT 100; BMI 23.1
[2020-01-12] MEDS: Lactated Ringers 1,000 ML 100 ML IV (08:10)
--- NOTE | 2020-01-12 08:45 | COLBX_PTH ---
PATIENT: THERON GONZALEZ LOC: EN U#:[id number] AGE/SX: 49/F ROOM: RE01/12/[address]: Dr. Cruz Lye MD : 1970 BED: DIS: 01/12/2020 SPEC #: [id number] RECD: 01/12/20 12:46 STATUS: FOX REMelody #: [id number] AYAH: 01/12/20 08:[address]: Cruz Ley DEPT: SURGICAL PATHOLOGY RECD BY: Bertin Ratliff ENTERED: 01/13/20 08:14 SP TYPE: COLON BX OTHR DR: Dr. Ras Mukherjee, Tissues: Descending colon Procedures: Surgery Specimen Level IV HEADER OPERATION: Colonoscopy (MAC) PRE-OP DIAGNOSIS: Screening TISSUE SUBMITTED: Descending polyp MICROSCOPIC DIAGNOSIS Descending colon polyp, biopsy: Tubular adenoma. SJ:alin 01/14/20 MICROSCOPIC DESCRIPTION Slides are reviewed. GROSS DESCRIPTION Received in fixative is one container labeled with the patient's name and designated descending polyp. The specimen consists of a rodas-pink polyp measuring 0.6 x 0.5 x 0.3 cm. The specimen is totally submitted in one cassette. / SJ:alin 01/13/20 TC:1 CPT: 36957
--- NOTE | 2020-01-12 09:17 | OP.CCLET_ITS ---
01/12/2020 Ras Mukherjee [address] [id number] Re : Colonoscopy procedure for Lisha Mcfarland Dear Dr. Mukherjee This procedure was performed on Sunday, January 12, 2020. My impressions and recommendations are as follows: Impressions : - One 5 mm polyp in the descending colon, removed with a hot snare. Resected and retrieved. - The examination was otherwise normal on direct and retroflexion views. Recommendations : - Discharge patient to home. - Resume previous diet. - Continue present medications. - Await pathology results. - Repeat colonoscopy in 5 years for surveillance. - Return to GI office in 1 week. My findings are described in the full procedure note, which is enclosed. If I can be of further assistance, please feel free to contact me at Doctor phone number(s): , Fax: [phone], Work: . Sincerely, MD Cruz Melendez MD 01/12/2020 9:17:14 AM This report has been signed electronically.
--- NOTE | 2020-01-12 09:17 | OP.COLON_ITS ---
Patient Name: Lisha Mcfarland Procedure Date: 01/12/2020 8:48 AM Date of : 1970 Age: 49 Procedure: Colonoscopy Indications: Screening for colorectal malignant neoplasm Providers: Cruz Ley MD Referring MD: Ras Mukherjee Medicines: See the Anesthesia note for documentation of the administered medications Patient Profile: This is a 49 year old female. Refer to note in patient chart for documentation of history and physical. Last Colonoscopy: none. The patient's first colonoscopy is today. Complications: No immediate complications. Procedure: Pre-Anesthesia Assessment: - Prior to the procedure, a History and Physical was performed, and patient medications and allergies were reviewed. The patient's tolerance of previous anesthesia was also reviewed. The risks and benefits of the procedure and the sedation options and risks were discussed with the patient. All questions were answered, and informed consent was obtained. Prior Anticoagulants: The patient has taken no previous anticoagulant or antiplatelet agents. ASA Grade Assessment: II - A patient with mild systemic disease. After reviewing the risks and benefits, the patient was deemed in satisfactory condition to undergo the procedure. After I obtained informed consent, the scope was passed under direct vision. Throughout the procedure, the patient's blood pressure, pulse, and oxygen saturations were monitored continuously. The colonoscope was introduced through the anus and advanced to the ileocecal valve. The colonoscopy was performed without difficulty. The patient tolerated the procedure well. The quality of the bowel preparation was good. Scope In: 8:58:16 AM Scope Withdrawal Time 0 hours 8 minutes 53 seconds Scope Out: 9:14:32 AM Total Procedure Duration Time 0 hours 16 minutes 16 seconds Findings: A 5 mm polyp was found in the descending colon. The polyp was sessile. The polyp was removed with a hot snare. Resection and retrieval were complete. The exam was otherwise without abnormality on direct and retroflexion views. Impression: - One 5 mm polyp in the descending colon, removed with a hot snare. Resected and retrieved. - The examination was otherwise normal on direct and retroflexion views. Recommendation: - Discharge patient to home. - Resume previous diet. - Continue present medications. - Await pathology results. - Repeat colonoscopy in 5 years for surveillance. - Return to GI office in 1 week. Procedure Code(s): --- Professional --- 87701, Colonoscopy, flexible; with removal of tumor(s), polyp(s), or other lesion(s) by snare technique Diagnosis Code(s): --- Professional --- Z12.11, Encounter for screening for malignant neoplasm of colon D12.4, Benign neoplasm of descending colon CPT copyright 2017 [employer]. All rights reserved. The codes documented in this report are preliminary and upon remote inpatient coder review may be revised to meet current compliance requirements. MD Cruz Melendez MD 01/12/2020 9:17:14 AM This report has been signed electronically. Number of Addenda: 0 Note Initiated On: 01/12/2020 8:48 AM
[2020-01-12 09:20] VITALS: BP 116/64; BP 134/100; PULSE 63; RESP 14; TEMP 36.2; O2SAT 100
[2020-01-12 09:25] VITALS: BP 109/65; BP 116/64; PULSE 55; RESP 14; O2SAT 96
[2020-01-12 09:30] VITALS: BP 109/63; BP 116/64; PULSE 51; RESP 14; O2SAT 97
[2020-01-12 09:35] VITALS: BP 107/69; BP 116/64; PULSE 62; RESP 16; TEMP 36.5; O2SAT 97
[2020-01-12 10:15] VITALS: BP 116/64
== END 2020-01-12 10:16 | disposition home or self-care (01) ==
LOC: EN 07:47 → AC 07:48
PROVIDERS: Physician Assistant; PCP Student in an Organized Health Care Education/Training Program; Referring Provider Student in an Organized Health Care Education/Training Program; Visit Provider Surgery
PROC: 0DJD8ZZ Inspection of Lower Intestinal Tract, Via Natural or Artificial Opening Endoscopic (ICD-10-PCS; CPT 45378; principal; 2020-01-12 08:40)
DX: Z12.11 Encounter for screening for malignant neoplasm of colon (principal); D12.4 Benign neoplasm of descending colon; Z11.59 Encounter for screening for other viral diseases; J45.909 Unspecified asthma, uncomplicated; Z79.51 Long term (current) use of inhaled steroids
CPT/HCPCS: 45380; 87635; 88305; G2023; J7120; J1610; J2405; U0003

== ENCOUNTER 2020-01-13 05:57 | Day surgery (SDC) | payer OTHER, SELFPAY ==
[2019-12-31 09:48] VITALS: BMI 24.0
--- NOTE | 2019-12-31 10:17 | HP_ITS ---
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: No Is patient in pain?: No Allergies No Known Allergies Allergy (Verified 12/31/19 09:47) Medications fexofenadine 180 mg tablet 180 mg PO DAILY 07/15/18 [History Confirmed 12/31/19] montelukast 10 mg tablet 10 mg PO QPM 07/15/18 [History Confirmed 12/31/19] albuterol sulfate 90 mcg/actuation aerosol inhaler INHALATION 12/31/19 [History Confirmed 12/31/19] fluticasone propionate 110 mcg/actuation HFA aerosol inhaler INHALATION 12/31/19 [History Confirmed 12/31/19] Is last menstrual period known: No Post menopausal: Yes Patient : No PFSH Medical History Asthma (Acute) Left breast lump (Acute) Seasonal allergies (Acute) Surgical History History of wisdom tooth extraction (Acute) Hx of breast implants, bilateral (Acute) S/P endometrial ablation (Acute) Family History Father Heart disease Cancer brain CVA (cerebral vascular accident) Grandmother Colon cancer Aunt Breast cancer Unknown Breast cancer Social History (Updated 12/31/19 @ 10:[address] 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 Patient has felt the left breast lump in her anterior aspect just inferior to the nipple for the last month. It is been tender to palpation she has not had any nipple discharge. She had a mammogram and ultrasound which showed a 7 mm complex solid and cystic density at the 6 o'clock position in the retroareolar region. Patient has had implants placed approximately 3 years ago. Patient needs to have a screening colonoscopy ROS General General: No weight change, appetite, fatigue, colon cancer, breast cancer or weakness HEENT HEENT: No difficulty swallowing, eye injury, eye surgery, swollen glands or hoarseness Endo Endocrine: No thyroid disease, diabetes mellitus, thyroid cancer, Hair loss, heat intolerance or cold intolerance Breast Breast: Yes left breast lump and abnormal US; no right breast lump, nipple discharge, breast pain, abnormal mammogram or breast enlargement Musc Musculoskeletal: No back problems, arthritis, rheumatoid arthritis, gout or joint pain Cardio Cardiovascular: No murmur, pacemaker, heart disease, atrial fibrillation, high blood pressure, heart attack, heart stent, palpitations, shortness of breat with exertion or chest pain Psych Psychiatric: No depression, anxiety or hearing voices Resp Respiratory: No shortness of breath, No sleep apnea, No cough, No COPD, Yes asthma, No emphysema, No wheezing Gastro Gastrointestinal: No abdominal pain, No nausea or vomiting, No diarrhea, No constipation, No blood in stool, No acid reflux, No hemorrhoids, No ulcers, No gallbladder problem, No black,tarry stools Art Hematologic: No blood thinners, No blood disorders, No bleeding, No anemia, No blood clots Neuro Neurologic: No weakness Exam [facility] Head: normal to inspection, normocephalic, atraumatic Mouth: oropharynx normal, moist mucous membranes Eyes General: appearance normal, both eyes and all related structures Sclera: sclerae normal Neck Neck: trachea midline, no lymphadenopathy noted Neck mass: No Thyroid: thyroid normal Lymphatic: no lymphadenopathy noted Chest Breast inspection: normal inspection of the breasts Breast Palpation: No nipple discharge Other: In the left nipple areolar region at the 6 o'clock position is this palpable abnormality. It is less than a centimeter it is not appreciably tender to touch it does not look like an infection whatsoever. Resp Other: Respiratory Exam: Deferred Cardio Heart Sounds: no murmurs Other: Cardiac Exam: Deferred GI Other: GI Exam: Deferred Other: Rectal Exam: Deferred Extrem Other: Extremity Exam: Deferred Assessment & Plan Problems 1. Abnormal mammogram of left breast R92.8 Plan I have discussed above with the patient. I have recommended Excisional breast biopsy. Patient has been counseled to the risks/benefits of the procedure. I have explained the risks of the surgery, including but not limited to: infection, bleeding, injury to any blood vessels/nerves, scar tissue, missing the lesion, further surgery, etc. - the patient understands and agrees to proceed. I have answered all of the patient's questions to her satisfaction and she has no further questions. I spent particular time showing the patient her ultrasound. There is no room to do either a needle core biopsy or handheld mammotome breast biopsy and not put her implant at significant risk the safest breast biopsy to do here is an excisional breast biopsy. 2. Screen for colon cancer Z12.11 Plan Patient here for screening colonoscopy consult. The patient has no abdominal pain or blood in her stool. Only family history is in her grandmother. Patient has never had a colonoscopy in the past. I explained endoscopy in detail to the patient. I explained the risks including but not limited to stroke or heart attack with anesthesia, perforation of the GI tract, bleeding, infection. I explained that any of these could necessitate further emergency surgery. The patient understands and all questions were answered sufficiently. The patient wishes to proceed with procedure. Coding Level of Care Code Off vis,new,level 3 Diagnoses Abnormal mammogram of left breast R92.8 12/31/19 1017 <Electronically signed by Cruz boateng MD> Date _ Cruz Ley MD I have examined the patient the following changes are noted: Screening colonoscopy
--- NOTE | 2020-01-12 07:46 | EKG12_ITS ---
Test Reason : PRE OP Blood Pressure : / mmHG Vent. Rate : 046 BPM Atrial Rate : 046 BPM P-R Int : 184 ms QRS Dur : 088 ms QT Int : 490 ms P-R-T Axes : 066 067 059 degrees QTc Int : 428 ms Sinus bradycardia Otherwise normal ECG No previous ECGs available Confirmed by MAYRA MARTINEZ, JAZZY ([id number]), proposal editor JIN NICHOLS ([id number]) on 01/18/2020 9:52:35 AM Referred By: Cruz Ley Confirmed By:JAZZY NUNEZ MD
[2020-01-12 08:01] VITALS: BMI 23.1
[2020-01-12 08:06] LABS: Absolute Lymphocyte Count 1.94 X10^3/uL (0.83-4.51); Absolute Neutrophil Count 2.2 X10^3/uL (2.0-7.7); Basophil# 0.07 X10^3/uL; Basophil% 1.4 % (0-1); Eosinophil# 0.25 X10^3/uL; Hematocrit 41.1 % (37-47); Hemoglobin 13.2 g/dL (12.0-15.0); Lymphocyte # 1.94 X10^3/ul (4.0); Lymphocyte % 38.9 % (19-41); Mean Corp Hgb Conc 32.1 g/dL (32-36); Mean Corpuscular Hgb 30.8 pg (27.0-32.0); Mean Platelet Vol. 11.2 fl (6.2-12.0); Monocyte# 0.48 X10^3/uL; Monocyte% 9.6 % (0-10); NRBC Flagged by Analyzer 0 % (0-5); Neutrophil # 2.24 X10^3/uL (2.7-7.7); Neutrophil % 44.9 % (47-70); Platelet Count 204 K/mm3 (150-450); RBC Distribution Width CV 12.6 % (11.6-14.6); RBC Distribution Width SD 44.6 fl (35.1-43.9); Red Blood Count 4.28 M/mm3 (4.2-5.4)
[2020-01-12 08:19] LABS: Anion Gap 8 (5-15); BUN 12 mg/dL (7-18); BUN/Creat Ratio 13.4 RATIO (10-20); Calcium,Total 9.2 mg/dL (8.5-10.1); Chloride 109 mmol/L (98-107); EST Glomerular Filtration Rate 71 mL/min (>60); Est Glom Filt Rate - Afr Amer 85 mL/min (>60); Glucose 85 mg/dL (74-106); Potassium 3.5 mmol/L (3.5-5.1); Sodium Level 143 mmol/L (136-145)
[2020-01-13 06:20] VITALS: BP 103/58; PULSE 61; RESP 14; TEMP 36.6; O2SAT 100; BMI 23.1
[2020-01-13] MEDS: Lactated Ringers 1,000 ML 30 ML IV (06:36)
--- NOTE | 2020-01-13 07:52 | HP.PCM_ITS ---
History and Physical Date of Admission: 01/13/20 [facility] [address] [place], [place] [id number] OFFICE VISIT Date of Service: 12/31/19 MR#: [id number] Acct: [id number] Name: THERON GONZALEZ Rep #: [id number] : 1970 Provider: Dr. 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 Is patient in pain?: No Allergies No Known Allergies Allergy (Verified 12/31/19 09:47) Medications fexofenadine 180 mg tablet 180 mg PO DAILY 07/15/18 [History Confirmed 12/31/19] montelukast 10 mg tablet 10 mg PO QPM 07/15/18 [History Confirmed 12/31/19] albuterol sulfate 90 mcg/actuation aerosol inhaler INHALATION 12/31/19 [History Confirmed 12/31/19] fluticasone propionate 110 mcg/actuation HFA aerosol inhaler INHALATION 12/31/19 [History Confirmed 12/31/19] Is last menstrual period known: No Post menopausal: Yes Patient : No PFSH Medical History Asthma (Acute) Left breast lump (Acute) Seasonal allergies (Acute) Surgical History History of wisdom tooth extraction (Acute) Hx of breast implants, bilateral (Acute) S/P endometrial ablation (Acute) Family History Father Heart disease Cancer brain CVA (cerebral vascular accident) Grandmother Colon cancer Aunt Breast cancer Unknown Breast cancer Social History (Updated 12/31/19 @ 10:[address] 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 Patient has felt the left breast lump in her anterior aspect just inferior to the nipple for the last month. It is been tender to palpation she has not had any nipple discharge. She had a mammogram and ultrasound which showed a 7 mm complex solid and cystic density at the 6 o'clock position in the retroareolar region. Patient has had implants placed approximately 3 years ago. ROS General General: No weight change, appetite, fatigue, colon cancer, breast cancer or weakness HEENT HEENT: No difficulty swallowing, eye injury, eye surgery, swollen glands or hoarseness Endo Endocrine: No thyroid disease, diabetes mellitus, thyroid cancer, Hair loss, heat intolerance or cold intolerance Breast Breast: Yes left breast lump and abnormal US; no right breast lump, nipple discharge, breast pain, abnormal mammogram or breast enlargement Musc Musculoskeletal: No back problems, arthritis, rheumatoid arthritis, gout or joint pain Cardio Cardiovascular: No murmur, pacemaker, heart disease, atrial fibrillation, high blood pressure, heart attack, heart stent, palpitations, shortness of breat with exertion or chest pain Psych Psychiatric: No depression, anxiety or hearing voices Resp Respiratory: No shortness of breath, No sleep apnea, No cough, No COPD, Yes asthma, No emphysema, No wheezing Gastro Gastrointestinal: No abdominal pain, No nausea or vomiting, No diarrhea, No constipation, No blood in stool, No acid reflux, No hemorrhoids, No ulcers, No gallbladder problem, No black,tarry stools Art Hematologic: No blood thinners, No blood disorders, No bleeding, No anemia, No blood clots Neuro Neurologic: No weakness Exam [facility] Head: normal to inspection, normocephalic, atraumatic Mouth: oropharynx normal, moist mucous membranes Eyes General: appearance normal, both eyes and all related structures Sclera: sclerae normal Neck Neck: trachea midline, no lymphadenopathy noted Neck mass: No Thyroid: thyroid normal Lymphatic: no lymphadenopathy noted Chest Breast inspection: normal inspection of the breasts Breast Palpation: No nipple discharge Other: In the left nipple areolar region at the 6 o'clock position is this palpable abnormality. It is less than a centimeter it is not appreciably tender to touch it does not look like an infection whatsoever. Resp Other: Respiratory Exam: Deferred Cardio Heart Sounds: no murmurs Other: Cardiac Exam: Deferred GI Other: GI Exam: Deferred Other: Rectal Exam: Deferred Extrem Other: Extremity Exam: Deferred Assessment & Plan Problems 1. Abnormal mammogram of left breast R92.8 Plan I have discussed above with the patient. I have recommended Excisional breast biopsy. Patient has been counseled to the risks/benefits of the procedure. I have explained the risks of the surgery, including but not limited to: infection, bleeding, injury to any blood vessels/nerves, scar tissue, missing the lesion, further surgery, etc. - the patient understands and agrees to proceed. I have answered all of the patient's questions to her satisfaction and she has no further questions. I spent particular time showing the patient her ultrasound. There is no room to do either a needle core biopsy or handheld mammotome breast biopsy and not put her implant at significant risk the safest breast biopsy to do here is an excisional breast biopsy. Coding Level of Care Code Off vis,new,level 3 Diagnoses Abnormal mammogram of left breast R92.8 12/31/19 1017 <Electronically signed by Cruz boateng MD> Date _ Cruz Ley MD Cosigner Signature: Date (if applicable) CC: KSENIA Bryant; Dr. Ras Mukherjee, DO ~ I have re-examined the patient. There are no clinical changes since date of exam.
--- NOTE | 2020-01-13 07:52 | PCM.DCBBX ---
Discharge Diet: No Restrictions Discharge Activity: Return to Normal Activity May shower in (days): 3 Remove Dressing in (days):: 3 - Leave Dermabond in place. Allergies/Adverse Reactions: Allergies No Known Allergies Allergy (Verified 01/12/20 07:54) Medications to take at Discharge fexofenadine 180 mg tablet 180 mg PO DAILY 07/15/18 montelukast 10 mg tablet 10 mg PO QPM 07/15/18 albuterol sulfate 90 mcg/actuation aerosol inhaler 1 - 2 puff INHALATION PRN PRN 12/31/19 fluticasone propionate 110 mcg/actuation HFA aerosol inhaler 1 - 2 puff INHALATION BID 12/31/19 Cyanocobalamin (Vitamin B-12) [Vitamin B-12] 1,000 mcg PO QHS 01/10/20 Magnesium Oxide [Magnesium] 2 cap PO QHS 01/10/20 Multivitamin 1 ea PO DAILY 01/10/20 Orders to be completed after discharge: Basic Metabolic Profile (BMP) Time Frame: 01/10/20, Facility: [facility], Location: Laboratory CBC W/Diff, Automated Time Frame: 01/10/20, Facility: [facility], Location: Laboratory Primary Care Physician: Ras Mukherjee DO [Primary Care Provider] - Test Results: Test results from this visit will be discussed in further detail at your follow-up appointment, if applicable. Please Follow Up With: Cruz Ley MD - [phone] When: Please call for an appointment to be seen in one week.
--- NOTE | 2020-01-13 07:53 | PCM.OPRPT ---
Problem List (1) Left breast mass Status: Acute Report of Operation Date of Procedure: 01/13/20 Pre-Operative Diagnosis: Left breast mass Post-Operative Diagnosis: Same Surgery/Procedure Performed:: Excisional left breast biopsy Anesthesiologist: Wilbur Qureshi Specimen's removed: Left breast mass Estimated Blood Loss (mL): < 5 cc Fluids Replaced: 800 cc lr Description of Procedure: Patient was brought into the operating room. Placed in the supine position. Under excellent general anesthetic left breast was sterilely prepped and draped in usual fashion. This mass was located underneath the nipple areolar complex at about the 6 to 7 o'clock position. Incision was made dissection was carried down the mass was removed in its entirety and sent to pathology for permanent sectioning. I did not go down far enough to come in contact with the implant itself. I did not inject any local. I had good pneumostasis. I brought the wound together with interrupted 5-0 PDS deep dermal sutures. Dermabond was applied. Sterile dressings were applied. The patient tolerated the procedure well. - Admit VTE Documentation VTE Present on Admission: No VTE Mechan Device Prophylaxis: SCD's VTE Pharm Prophylaxis ordered?: No Reason prophylaxis not ordered:: Treatment Not Indicated [id number]: [id number] Biopsy of breast open
[2020-01-13] MEDS: Cefazolin 2 GM in 0.9% Normal Saline 100 ML IV (07:56)
--- NOTE | 2020-01-13 08:00 | BRBX_PTH ---
PATIENT: THERON GONZALEZ LOC: [facility] U#:[id number] AGE/SX: 49/F ROOM: RE01/13/[address]: Dr. Cruz Ley MD : 1970 BED: DIS: 01/13/2020 SPEC #: [id number] RECD: 01/13/20 09:39 STATUS: FOX BABS #: [id number] AYAH: 01/13/20 08:[address]: Cruz Ley DEPT: SURGICAL PATHOLOGY RECD BY: Bertin Ratliff ENTERED: 01/13/20 09:56 SP TYPE: BREAST BX OTHR DR: Dr. Ras Mukherjee, DO Tissues: Left breast, NOS Procedures: Surgery Specimen Level V HEADER OPERATION: Excisional breast biopsy PRE-OP DIAGNOSIS: Abnormal mammogram of left breast TISSUE SUBMITTED: Left breast mass MICROSCOPIC DIAGNOSIS Left breast mass, excisional biopsy: Intraductal papilloma with apocrine metaplasia. Fibrocystic changes and intraductal hyperplasia without atypia. Focal duct ectasia. Focal microcalcifications. Negative for malignancy. LINDSEY:alin 01/14/20 COMMENT Case has been reviewed in consultation with Dr. Kimball who concurs with the above diagnosis. IDC:AM MICROSCOPIC DESCRIPTION Slides are reviewed. GROSS DESCRIPTION Received in fixative is one container labeled with the patient's name and designated left breast mass. The specimen consists of a piece of rodas-white soft tissue measuring 1.5 x 0.7 x 0.5 cm. The specimen is inked, bisected and submitted entirely in one cassette. / LINDSEY:alin 01/13/20 TC:1 CPT: 75462
[2020-01-13 08:34] VITALS: BP 103/59; BP 110/62; PULSE 49; RESP 16; TEMP 36.8; O2SAT 97
[2020-01-13 08:45] VITALS: BP 103/59; BP 106/62; PULSE 46; RESP 16; O2SAT 99
[2020-01-13 09:00] VITALS: BP 101/61; BP 103/59; PULSE 48; RESP 16; TEMP 36.9; O2SAT 98
[2020-01-13] MEDS: Ibuprofen 200 MG Tablet 400 MG PO (10:07)
[2020-01-13] MEDS: Acetaminophen 325 MG Tablet 650 MG PO (10:07)
[2020-01-13 10:18] VITALS: BP 103/59; BP 108/69; PULSE 54; RESP 16; TEMP 37; O2SAT 96
== END 2020-01-13 10:21 | disposition home or self-care (01) ==
LOC: SDC 05:57 → AC 05:58
PROVIDERS: PCP Student in an Organized Health Care Education/Training Program; Referring Provider Surgery; Visit Provider Surgery
PROC: (CPT 19120; principal; 2020-01-13 07:45)
DX: D24.2 Benign neoplasm of left breast (principal); N60.12 Diffuse cystic mastopathy of left breast; N62 Hypertrophy of breast; N60.42 Mammary duct ectasia of left breast; J45.909 Unspecified asthma, uncomplicated; Z79.51 Long term (current) use of inhaled steroids
CPT/HCPCS: 00400; 19120; 36415; 80048; 85025; 88305; 88307; 93005; J7120; J2405

== ENCOUNTER → 2020-10-05 16:11 | Outpatient (CLI) | payer OTHER, SELFPAY ==
[2020-09-26 15:30] VITALS: BMI 25.0
--- NOTE | 2020-10-05 16:17 | BI_ITS ---
MAMMOGRAPHY - BILATERAL SCREENING REASON FOR EXAM: Female, 50 years old. Routine annual screening examination. PERTINENT HISTORY: Aunt with breast cancer. Bilateral breast implants. Prior left excisional breast biopsy. TECHNIQUE: Digital bilateral breast shannan (3D mammographic acquisition) in the CC and MLO projections. 2-D mediolateral oblique (MLO) and craniocaudad (CC) views of both breasts were obtained. CAD: Full Field Digital Mammography with Computer Added Detection was performed. COMPARISON: Comparison is made with prior study dated 08/05/2019 and 12/29/2019. FINDINGS: Breast Composition: The breasts are extremely dense, which lowers the sensitivity of mammography. There are no dominant masses or suspicious calcifications. Stable bilateral breast implants. No other significant abnormalities are identified. There has been no significant change since the prior study. BI/SCRN MAMM (CAD)W/SHANNAN BILAT IMPRESSION: Stable bilateral screening mammogram. Yearly follow-up mammogram recommended. (A) ASSESSMENT CATEGORY: BIRADS Category 2: Benign. A letter regarding these results will be sent to the patient by the facility within 30 days. Approximately 10% of breast cancers are not detected by mammography. A normal mammogram should not delay biopsy of a clinically suspicious abnormality. [id number] Electronically Signed: Roland Goyal MD at 8:23 EST , Service support ,
== END ==
PROVIDERS: PCP Student in an Organized Health Care Education/Training Program; Referring Provider Nurse Practitioner Women's Health; Visit Provider Nurse Practitioner Women's Health
DX: Z12.31 Encounter for screening mammogram for malignant neoplasm of breast (principal)
CPT/HCPCS: 77063; 77067

== ENCOUNTER → 2020-11-27 | Outpatient (CLI) | payer OTHER, SELFPAY ==
[2020-11-27 11:36] VITALS: BMI 24.8
== END | disposition home or self-care (01) ==
LOC: LABSPEC 13:02
PROVIDERS: PCP Student in an Organized Health Care Education/Training Program; Referring Provider Nurse Practitioner Women's Health; Visit Provider Nurse Practitioner Women's Health
DX: R30.0 Dysuria (principal)
CPT/HCPCS: 87077; 87086; 87088; 87186

== ENCOUNTER → 2021-03-07 | Outpatient (CLI) | payer OTHER, SELFPAY ==
[2021-03-07 15:20] VITALS: BMI 24.8
[2021-03-12 11:24] LABS: HSV Culture Without Typing Positive (.)
== END | disposition home or self-care (01) ==
LOC: LABSPEC 16:22
PROVIDERS: PCP Student in an Organized Health Care Education/Training Program; Referring Provider Nurse Practitioner Women's Health; Visit Provider Nurse Practitioner Women's Health
DX: B00.9 Herpesviral infection, unspecified (principal); R10.2 Pelvic and perineal pain
CPT/HCPCS: 87255

== ENCOUNTER 2021-09-07 20:40 | Observation (INO) | payer OTHER, SELFPAY ==
[2021-09-07 20:41] VITALS: BP 152/92; PULSE 68; RESP 16; TEMP 36.7; O2SAT 100; BMI 24.7
--- NOTE | 2021-09-07 20:54 | CT_ITS ---
INDICATION: Kidney Stone EXAMINATION: CT ABDOMEN AND PELVIS WITHOUT CONTRAST - CT Abdomen And Pelvis W/O Contrast Injection TECHNIQUE: Helically acquired images were obtained of the abdomen and pelvis without oral or IV contrast. A radiation dose optimization technique was used for this scan. IV Contrast dosage and agent: None. Oral contrast: None. COMPARISON: Lumbar spine x-rays 07/10/2021. FINDINGS: LOWER CHEST: Lung bases are clear. No cardiomegaly or pericardial effusion. Bilateral breast implants incompletely visualized. LIVER: Homogeneous. 12 mm fluid density right hepatic lobe likely representing cyst. GALLBLADDER AND BILIARY TREE: No calcified gallstones. No gallbladder distension or wall edema. No intra- or extrahepatic biliary ductal dilation. PANCREAS: No focal cystic or solid mass. SPLEEN: Normal size without focal cystic or solid mass. ADRENAL GLANDS: No nodules. KIDNEYS AND URETERS: Normal renal size and position. There is a proximal right ureteral stone measuring 6 mm resulting in moderate right-sided hydronephrosis. Nonobstructing 2 mm stone superior pole left kidney and 3 mm stone inferior pole left kidney. PERITONEUM: No ascites or free air. No other fluid collection. BOWEL: No evidence of acute appendicitis. No stomach or bowel distension. No focal inflammatory change. LYMPH NODES: No enlarged mesenteric or retroperitoneal lymph nodes. VESSELS: Aorta is non-dilated. URINARY BLADDER: Unremarkable. REPRODUCTIVE ORGANS: No pelvic masses. ABDOMINAL WALL: No discrete abdominal or pelvic wall hernia. BONES: Bilateral pars defects at L5 with mild grade 1 anterolisthesis of L5 on S1. Limbus vertebral body morphology superior endplate of L3. Endplate herniation pits at T12 and L1. CT/Abdomen/Pelvis without Cont IMPRESSION: 6 mm obstructing proximal right ureteral stone resulting in [id number] right-sided hydronephrosis. Nonobstructing 2 and 3 mm stones left kidney. 12 mm right hepatic lobe fluid density highly suggestive of cyst. Bilateral L5 pars defects with low grade 1 anterolisthesis of L5 on S1. Electronically Signed: Elian Stock DO at 21:44 EST ,
[2021-09-07 20:57] LABS: Bacteria 0 SEEN /hpf (None Seen); Mucous, Urine 0 SEEN /hpf (<or=2+); Squamous Epithelial Cells - UA 0 SEEN /hpf (5-10)
[2021-09-07 21:03] LABS: Color, Urine Yellow (Yellow); Glucose, Dipstick Normal (Normal); Ketone-Dipstick Negative (Negative); Leukocyte Esterase-Dipstick 100 /ul (Negative); Nitrite-Dipstick Negative (Negative); Occult Blood-Urine 150 /ul (Negative); Protein-Dipstick 15 mg/dl (Negative); Specific Gravity, Urine 1.025 (1.002-1.030); Urine Bilirubin Dipstick Negative (Negative); Urine Clarity Clear (Clear); Urine Urobilinogen Normal (Normal)
[2021-09-07 21:08] LABS: Red Blood Cells-Urine 10-25 SEEN /hpf (0-5); White Blood Cells 0-5 SEEN /hpf (0-5)
[2021-09-07 21:10] LABS: Absolute Lymphocyte Count 2.46 X10^3/uL (0.83-4.51); Absolute Neutrophil Count 5.1 X10^3/uL (2.0-7.7); Basophil# 0.06 X10^3/uL; Basophil% 0.6 % (0-1); Eosinophil# 0.59 X10^3/uL; Eosinophils% 6.3 % (0-5); Hematocrit 34.7 % (37-47); Lymphocyte # 2.46 X10^3/ul (0.83-4.51); Lymphocyte % 26.3 % (19-41); Mean Corp Hgb Conc 34.6 g/dL (32-36); Mean Corpuscular Volume 83.8 fL (81-99); Mean Platelet Vol. 11.2 fl (6.2-12.0); Monocyte% 11.8 % (0-10); NRBC Flagged by Analyzer 0 % (0-5); Neutrophil # 5.12 X10^3/uL (2.7-7.7); Neutrophil % 54.7 % (47-70); Platelet Count 212 K/mm3 (150-450); RBC Distribution Width CV 13.8 % (11.6-14.6); RBC Distribution Width SD 42.8 fl (35.1-43.9); Red Blood Count 4.14 M/mm3 (4.2-5.4); White Blood Count 9.4 K/mm3 (4.4-11.0)
--- NOTE | 2021-09-07 21:11 | EDS_ITS ---
HPI History of Present Illness Chief Complaint: Flank Pain Detail of Chief Complaint: Right flank pain radiating to the right groin Informant: patient and spouse/S.O. Onset/Context/Timing Onset: Yesterday and Hours (Hours prior to presentation pain became intense and constant) Context: Sudden Onset Timing: Intermittent Quality: Severe pain Location: Right flank radiating to right inguinal area Current Severity: Severe Maximum Severity: Severe Worsened by: Nothing Relieved by: Cannot find position of comfort Associated Symptoms Associated Symptoms: Nausea Narrative Narrative: Patient is a 51-year-old woman with prior history of ureteral/renal lithiasis. She was seen by chiropractor recently. Had x-rays of the spine have revealed kidney stones. Patient has not had a symptomatic stone for 10 years. She does report nausea without vomiting. She does not complain of blood in her urine frequency or hematuria. She does report intense right flank pain. She has no other complaints. Prior similar symptoms: Yes Recent Illness/Hospitalization: No PFSH PFS Medical History (Updated 09/07/21 @ 22:[address] Flakito Silverio MD) Asthma Kidney stones Left breast lump Seasonal allergies Home Medications montelukast 10 mg tablet 10 mg PO QPM 07/15/18 [History Last Taken Unknown] albuterol sulfate 90 mcg/actuation aerosol inhaler 1 - 2 puff INHALATION PRN PRN 12/31/19 [History Last Taken Unknown] fluticasone propionate 110 mcg/actuation HFA aerosol inhaler 1 - 2 puff INHALATION BID 12/31/19 [History Last Taken Unknown] cyanocobalamin (vitamin B-12) 1,000 mcg PO QHS 01/10/20 [History Last Taken Unknown] multivitamin 1 ea PO DAILY 01/10/20 [History Last Taken Unknown] cholecalciferol (vitamin D3) 50 mcg (2,000 unit) capsule 50 mcg PO DAILY 09/26/20 [History Last Taken Unknown] loratadine 10 mg tablet 10 mg PO DAILY 07/10/21 [History Last Taken Unknown] Allergy/AdvReac Type Severity Reaction Status Date / Time No Known Allergies Allergy Verified 09/07/21 20:43 Family History Father Heart disease Cancer brain CVA (cerebral vascular accident) Myocardial infarction Grandmother Colon cancer Arthritis Aunt Breast cancer Unknown Breast cancer Mother Arthritis Thyroid disorder Surgical History History of wisdom tooth extraction Hx of breast implants, bilateral S/P endometrial ablation Social History (Updated 09/07/21 @ 21:[address] 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 Patient works at [employer] ROS ED Constitutional Constitutional ED: Reports sweats; Denies chills, fever(s), subjective or weight loss Eyes Eyes: Denies blurry vision, change in vision or diplopia ENT ENT ED: Denies ear pain, rhinorrhea or sore throat Cardiovascular Cardiovascular: Denies chest pain or palpitations Respiratory/Chest Respiratory/Chest: Denies cough, dyspnea or dyspnea on exertion Gastrointestinal Gastrointestinal: Reports abdominal pain and nausea; Denies constipation, diarrhea, melena or vomiting Genitourinary Genitourinary ED: Denies dysuria, hematuria or urinary frequency Musculoskeletal Musculoskeletal: Reports back pain; Denies arthralgias, myalgias or neck pain Integumentary Denies rash Neurologic Neurologic: Denies headache(s) or weakness Hematologic/Lymphatic Hematologic/Lymphatic: Denies anemia, easy bleeding or easy bruising EXAM Physical Exam Const Vital Signs: 09/07/21 20:41 09/07/21 22:03 Temperature 98.1 F Temperature Source Temporal Pulse Rate 68 Respiratory Rate 16 18 Blood Pressure 152/92 H Blood Pressure Mean 112 Pulse Ox 100 Oxygen Delivery Method Room Air Positive well nourished and well developed General Appearance ED: well developed; Negative for cyanotic, diaphoretic, NAD or pallor HEENT Reports TM's clear and moist mucous membranes Negative for trauma or tenderness Tympanic Membrane ED: Yes TM's clear Eyes PERRL and EOMs intact bilaterally General Eye ED: Negative for pale conjunctiva or scleral icterus Neck no lymphadenopathy, supple and no JVD Resp normal respiratory effort and clear to auscultation bilaterally Cardio regular rate, regular rhythm, S1 normal heart sound, S2 normal heart sound and no murmurs GI normal to inspection, nondistended, normoactive bowel sounds and non-tender Palpation: soft Back/Spine no CVA tenderness Thoracic Spine / Upper Back: Negative for thoracic spinal tenderness or paraspinal muscle tenderness Extremity normal to inspection Neuro oriented x3, CN's II-XII intact bilaterally and no sensory deficits noted Sensorium / Orientation: alert Motor Exam: strength 5/5 throughout Psych mental status grossly normal Skin no rashes or lesions noted and no wounds General Skin Exam: Negative for jaundice or pallor MDM MDM MDM Narrative Medical decision making narrative: Patient is in obvious discomfort slightly diaphoretic. History and physical exam is consistent with an obstructing ureteral stone. Will obtain urine to assess for infection. BMP to assess renal function and white count to determine if there is elevation and H&H. She was medicated with IV Zofran, Toradol and morphine. CT was obtained to determine size and location of stone. Patient was spoken to prior to discharge. She became diaphoretic in obvious discomfort. She was medicated with morphine. When she was reassessed at 2230 she is still in obvious discomfort. Dilaudid was ordered. Calls were placed to Dr. Razo for admission for pain management. Lab Data Attestation: I reviewed the patient's lab results. Lab results narrative: CBC is unremarkable. Urine is remarkable for hematuria only. There is no evidence infection. Labs: Laboratory Results - last 24 hr 09/07/21 09/07/21 09/07/21 20:55 21:04 21:04 WBC 9.4 RBC 4.14 L Hgb 12.0 Hct 34.7 L MCV 83.8 MCH 29.0 MCHC 34.6 RDW Std Deviation 42.8 RDW Coeff of Rosa 13.8 Plt Count 212 MPV 11.2 Immature Gran % (Auto) 0.300 Neut % (Auto) 54.7 Lymph % (Auto) 26.3 [place] % (Auto) 11.8 H Eos % (Auto) 6.3 H Baso % (Auto) 0.6 Absolute Neuts (auto) 5.1 Absolute Lymphs (auto) 2.46 Nucleated RBC % 0 Sodium 140 Potassium 3.5 Chloride 106 Carbon Dioxide 27.0 Anion Gap 7 BUN 16 Creatinine 1.02 Estim Creat Clear Calc 51.03 Est GFR (MDRD) Af Amer 73 Est GFR (MDRD) Non-Af 60 BUN/Creatinine Ratio 15.7 Glucose 123 H Calcium 9.2 Urine Color Yellow Urine Clarity Clear Urine pH 5.0 Ur Specific [place] 1.025 Urine Protein 15 H Urine Glucose (UA) Normal Urine Ketones Negative Urine Occult Blood 150 H Urine Nitrite Negative Urine Bilirubin Negative Urine Urobilinogen Normal Ur Leukocyte Esterase 100 H Urine RBC 10-25 SEEN Urine WBC 0-5 SEEN Ur Squamous Epith Cells 0 SEEN Urine Bacteria 0 SEEN Urine Mucus 0 SEEN Radiography Diagnostic Testing: Clinical Impression(s) from Imaging Studies Abdomen/Pelvis CT 09/07/21 20:54 IMPRESSION: 6 mm obstructing proximal right ureteral stone resulting in [id number] right-sided hydronephrosis. Nonobstructing 2 and 3 mm stones left kidney. 12 mm right hepatic lobe fluid density highly suggestive of cyst. Bilateral L5 pars defects with low grade 1 anterolisthesis of L5 on S1. Electronically Signed: Elian Stock DO at 21:44 EST , Discharge Plan Triage Chief Complaint: Flank Pain ED Provider: Flakito Silverio Dx/Rx/DC Orders Clinical Impression: Hydronephrosis with urinary obstruction due to ureteral calculus, Kidney stones Prescriptions: No Action montelukast [Singulair] 10 mg tablet 10 mg PO QPM RF: 0 albuterol sulfate 90 mcg/actuation HFA aerosol inhaler 1 - 2 puff INHALATION PRN PRN (Reason: Shortness Of Breath) RF: 0 fluticasone propionate 110 mcg/actuation HFA aerosol inhaler 1 - 2 puff INHALATION BID RF: 0 cholecalciferol (vitamin D3) 50 mcg (2,000 unit) capsule 50 mcg PO DAILY RF: 0 loratadine [Allergy Relief (loratadine)] 10 mg tablet 10 mg PO DAILY RF: 0 multivitamin 1 EACH tablet 1 ea PO DAILY RF: 0 cyanocobalamin (vitamin B-12) 1,000 MCG capsule 1,000 mcg PO QHS RF: 0 Primary Care Provider: Ras Mukherjee Referrals: Ras Mukherjee DO [Primary Care Provider] - Disposition Disposition: Acute Care [facility]
[2021-09-07] MEDS: Ondansetron 4 MG/2 ML Vial IV (21:12)
[2021-09-07] MEDS: 0.9% Normal Saline 1,000 ML 250 ML IV (21:12)
[2021-09-07] MEDS: Ketorolac 15 MG/ML Vial IV (21:12)
[2021-09-07] MEDS: Morphine 4 MG/ML Syringe IV ×2 (21:13→21:58)
[2021-09-07 21:25] LABS: Anion Gap 7 (5-15); BUN 16 mg/dL (7-18); BUN/Creat Ratio 15.7 RATIO (10-20); Calcium,Total 9.2 mg/dL (8.5-10.1); Chloride 106 mmol/L (98-107); Creatinine, Serum 1.02 mg/dL (0.55-1.02); EST Glomerular Filtration Rate 60 mL/min (>60); Est Glom Filt Rate - Afr Amer 73 mL/min (>60); Estimated Creatinine Clearance 51.03 ml/min; Glucose 123 mg/dL (74-106); Potassium 3.5 mmol/L (3.5-5.1); Sodium Level 140 mmol/L (136-145)
[2021-09-07 22:03] VITALS: RESP 18
[2021-09-07] MEDS: HYDROmorphone 0.5 MG/0.5 ML SYRINGE IV (22:42)
[2021-09-07 22:50] VITALS: BP 128/72; PULSE 82; RESP 16; TEMP 36.7; O2SAT 97
[2021-09-07 23:16] VITALS: BMI 26.2
[2021-09-07 23:20] VITALS: BP 121/77; PULSE 91; RESP 16; TEMP 36.8; O2SAT 93
[2021-09-07] MEDS: 0.9% Normal Saline 1,000 ML 125 ML IV (23:35)
[2021-09-08] VITALS (14 sets, daily range): BP systolic 88–131; BP diastolic 48–94; PULSE 72–138; RESP 16–28; TEMP 36.8–39.7; O2SAT 85–97; BMI 26.2
[2021-09-08] MEDS: HYDROmorphone 1 MG/ML Syringe IV ×2 (03:28→07:47)
[2021-09-08] MEDS: Ondansetron 4 MG/2 ML Vial IV (03:31)
[2021-09-08] MEDS: 0.9% Normal Saline 1,000 ML 125 ML IV (05:56)
--- NOTE | 2021-09-08 07:00 | RAD_ITS ---
STUDY: X-RAY - ABDOMEN/PELVIS REASON FOR EXAM: Female, 51 years old. kidney stone TECHNIQUE: Single AP view of the abdomen / pelvis. COMPARISON: CT to FINDINGS: Normal visualized lung bases. There is an unremarkable bowel gas pattern. The visualized liver, spleen and kidneys are grossly normal in size and morphology. 5 mm calcific opacity projecting over the right transverse process of L2 worrisome for right ureteral stone. Normal visualized osseous structures. RAD/Abdomen Single View IMPRESSION: No change in 5 mm right ureteral stone. Electronically Signed: Sriram Monzon MD at 7:17 EST ,
[2021-09-08] MEDS: 0.9% Saline Lock 10 ML Syringe IV (07:49)
--- NOTE | 2021-09-08 08:00 | HP.PCM_ITS ---
HPI - General General Date of Admission: 09/07/21 HPI Narrative THERON GONZALEZ, is a 51 F who presents With a large obstructing stone in the right proximal ureter with severe pain, Plan for intervention [facility] Medical History Asthma Kidney stones Left breast lump Seasonal allergies Home Medications montelukast 10 mg tablet 10 mg PO DAILY 07/15/18 [History Last Taken 09/07/21] albuterol sulfate 90 mcg/actuation aerosol inhaler 1 - 2 puff INHALATION PRN PRN 12/31/19 [History Last Taken Unknown] fluticasone propionate 110 mcg/actuation HFA aerosol inhaler 1 - 2 puff INHALATION BID PRN 12/31/19 [History Last Taken 09/07/21] multivitamin 1 ea PO DAILY 01/10/20 [History Last Taken 09/07/21] cholecalciferol (vitamin D3) 50 mcg (2,000 unit) capsule 50 mcg PO DAILY 09/26/20 [History Last Taken 09/07/21] loratadine 10 mg tablet 10 mg PO DAILY 07/10/21 [History Last Taken 09/07/21] Allergy/AdvReac Type Severity Reaction Status Date / Time No Known Allergies Allergy Verified 09/07/21 20:43 Family History Father Heart disease Cancer brain CVA (cerebral vascular accident) Myocardial infarction Grandmother Colon cancer Arthritis Aunt Breast cancer Unknown Breast cancer Mother Arthritis Thyroid disorder Surgical History History of wisdom tooth extraction Hx of breast implants, bilateral S/P endometrial ablation Social History (Updated 09/07/21 @ 21:[address] 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 [employer] Constitutional Constitutional: Denies chills, fever(s) or malaise Eyes Eyes: Denies blurry vision or change in vision ENT HEENT: Reports none Cardiovascular Cardiovascular: Denies chest pain or palpitations Respiratory/Chest Respiratory/Chest: Denies cough or shortness of breath with exertion Gastrointestinal Gastrointestinal: Denies abdominal pain, constipation or diarrhea Musculoskeletal Musculoskeletal: Denies back pain, joint stiffness or joint swelling Integumentary Integumentary: Denies dry skin, jaundice, lesions or rash Neurologic Neurologic: Denies confusion, syncope or weakness Psychiatric Psychiatric: Reports none; Denies anxiety or depression Endocrine Endocrinology: Denies excessive sweating, fatigue or flushing Hematologic/Lymphatic Hematologic/Lymphatic: Denies anemia, easy bleeding or easy bruising Vital Signs Vital Signs Vital Signs: 09/07/21 20:41 09/07/21 22:03 09/07/21 22:50 Temperature 98.1 F 98.0 F Temperature Source Temporal Temporal Pulse Rate 68 82 Respiratory Rate 16 18 16 Respiratory Effort Respiratory Depth Respiratory Pattern Blood Pressure 152/92 H 128/72 H Blood Pressure Mean 112 90 Blood Pressure Source Blood Pressure Position Blood Pressure Location Pulse Ox 100 97 Oxygen Delivery Method Room Air Room Air Oxygen Flow Rate (L/min) 09/07/21 23:20 09/08/21 04:31 09/08/21 05:20 Temperature 98.3 F 99.1 F Temperature Source Oral Oral Pulse Rate 91 88 Respiratory Rate 16 16 Respiratory Effort Normal Respiratory Depth Normal Respiratory Pattern Normal Blood Pressure 121/77 H 105/58 L Blood Pressure Mean 91 73 Blood Pressure Source Monitor Monitor Blood Pressure Position Supine Semi-Fowlers Blood Pressure Location Left Arm Right Arm Pulse Ox 93 95 95 Oxygen Delivery Method Room Air Nasal Cannula Nasal Cannula Oxygen Flow Rate (L/min) 2 2 Weight Weight: 64.9 kg Body Mass Index (BMI) 26.2 Physical Exam Const alert and oriented x3 General Appearance: cooperative HEENT normocephalic, head/scalp atraumatic, EAC's normal and TM's normal bilaterally Eyes PERRL and EOMs intact bilaterally Pupil: sluggish Neck no lymphadenopathy, supple and no JVD General: trachea midline Lymph Lymphatic: no lymphadenopathy noted, lymphedema and lymphadenopathy Resp normal respiratory effort, normal air movement and clear to auscultation bilaterally Cardio regular rate, regular rhythm and peripheral pulses 2+ throughout GI soft to palpation, non-tender and non-distended Extremity normal capillary refill and no clubbing, cyanosis or edema General Extremity: no tenderness to palpation of joints or extremities Skin no rashes or lesions noted General Skin Exam: turgor normal Lesions: no lesions Rashes: no rashes Neuro CN's II-XII intact bilaterally Speech: speech normal Motor Exam: strength 5/5 throughout; Negative for general weakness Psych thought process normal, cooperative and affect normal Appearance: appropriate Results Lab / Micro Data Result Diagrams: 09/07/21 21:04 09/07/21 21:04 Labs: Laboratory Results - last 24 hr 09/07/21 20:55: Urine Color Yellow, Urine Clarity Clear, Urine pH 5.0, Ur Specific [place] 1.025, Urine Protein 15 H, Urine Glucose (UA) Normal, Urine Ketones Negative, Urine Occult Blood 150 H, Urine Nitrite Negative, Urine Bilirubin Negative, Urine Urobilinogen Normal, Ur Leukocyte Esterase 100 H, Urine RBC 10-25 SEEN, Urine WBC 0-5 SEEN, Ur Squamous Epith Cells 0 SEEN, Urine Bacteria 0 SEEN, Urine Mucus 0 SEEN 09/07/21 21:04: WBC 9.4, RBC 4.14 L, Hgb 12.0, Hct 34.7 L, MCV 83.8, MCH 29.0, MCHC 34.6, RDW Std Deviation 42.8, RDW Coeff of Rosa 13.8, Plt Count 212, MPV 11.2, Immature Gran % (Auto) 0.300, Neut % (Auto) 54.7, Lymph % (Auto) 26.3, [place] % (Auto) 11.8 H, Eos % (Auto) 6.3 H, Baso % (Auto) 0.6, Absolute Neuts (auto) 5.1, Absolute Lymphs (auto) 2.46, Nucleated RBC % 0 09/07/21 21:04: Sodium 140, Potassium 3.5, Chloride 106, Carbon Dioxide 27.0, Anion Gap 7, BUN 16, Creatinine 1.02, Estim Creat Clear Calc 51.03, Est GFR (MDRD) Af Amer 73, Est GFR (MDRD) Non-Af 60, BUN/Creatinine Ratio 15.7, Glucose 123 H, Calcium 9.2 Radiology Impression Abdomen/Pelvis CT 09/07/21 20:54 IMPRESSION: 6 mm obstructing proximal right ureteral stone resulting in [id number] right-sided hydronephrosis. Nonobstructing 2 and 3 mm stones left kidney. 12 mm right hepatic lobe fluid density highly suggestive of cyst. Bilateral L5 pars defects with low grade 1 anterolisthesis of L5 on S1. Electronically Signed: Elian Stock DO at 21:44 EST , KUB X-Ray 09/08/21 07:00 IMPRESSION: No change in 5 mm right ureteral stone. Electronically Signed: Sriram Monzon MD at 7:17 EST , Assessment & Plan Assessment/Plan (1) Hydronephrosis with urinary obstruction due to ureteral calculus: PLAN: Plan for surgery later today with either stent or ureteroscopy and laser.
--- NOTE | 2021-09-08 08:02 | PCM.PN.BLA ---
Progress Note Patient admitted last night with a kidney stone KUB today demonstrates a large stone in the proximal ureter still pain is not under control plan for intervention. Physical Exam Const alert and oriented x3 General Appearance: cooperative HEENT normocephalic, head/scalp atraumatic, EAC's normal and TM's normal bilaterally Eyes PERRL and EOMs intact bilaterally Pupil: sluggish Neck no lymphadenopathy, supple and no JVD General: trachea midline Lymph Lymphatic: no lymphadenopathy noted, lymphedema and lymphadenopathy Resp normal respiratory effort, normal air movement and clear to auscultation bilaterally Cardio regular rate, regular rhythm and peripheral pulses 2+ throughout GI soft to palpation, non-tender and non-distended Extremity normal capillary refill and no clubbing, cyanosis or edema General Extremity: no tenderness to palpation of joints or extremities Skin no rashes or lesions noted General Skin Exam: turgor normal Lesions: no lesions Rashes: no rashes Neuro CN's II-XII intact bilaterally Speech: speech normal Motor Exam: strength 5/5 throughout; Negative for general weakness Psych thought process normal, cooperative and affect normal Appearance: appropriate Assessment & Plan Assessment/Plan (1) Hydronephrosis with urinary obstruction due to ureteral calculus: PLAN: Plan for cyto stent today to control.
--- NOTE | 2021-09-08 08:40 | NURSING ---
Pt being transported via bed down to PACU at this time. Pt states her last meal was at 1800 last night 09/07/21 and only sips of water since then. This nurse took water away as soon as Dr. Razo came in and said she was going to surgery which was about 0820.
[2021-09-08] MEDS: Lactated Ringers 1,000 ML 100 ML IV ×2 (08:45→10:25)
--- NOTE | 2021-09-08 09:10 | PCM.DC ---
Discharge Instructions Diet Discharge Diet: No restrictions Activity Discharge Activity: May Not Drive (while taking narcotic pain medications.) Dressing / Incision Call your doctor if you observe: Fever of 101 or Higher Follow Up Care Please Follow Up With: Gianfranco Razo MD When: Call [phone] for an appointment Test Results: Test results from this visit will be discussed in further detail at your follow-up appointment, if applicable. Discharge Plan Admission Admit Date/Time: 09/07/21 22:36 Primary Reason for Your Visit: kidney stone Attending Provider: Gianfranco Razo Primary Care Provider: Ras Mukherjee Instructions Patient Instructions: Treating Kidney Stones ... Discharge Orders/Prescriptions Prescriptions: New cephalexin 500 mg capsule 500 mg PO BID Qty: 10 RF: 0 oxycodone-acetaminophen 5-325 mg tablet 1 tab PO Q6H PRN (Reason: pain) 7 Days Qty: 10 RF: 0 Continued montelukast [Singulair] 10 mg tablet 10 mg PO DAILY RF: 0 albuterol sulfate 90 mcg/actuation HFA aerosol inhaler 1 - 2 puff INHALATION PRN PRN (Reason: Shortness Of Breath) RF: 0 fluticasone propionate 110 mcg/actuation HFA aerosol inhaler 1 - 2 puff INHALATION BID PRN (Reason: asthma) RF: 0 cholecalciferol (vitamin D3) 50 mcg (2,000 unit) capsule 50 mcg PO DAILY RF: 0 loratadine [Allergy Relief (loratadine)] 10 mg tablet 10 mg PO DAILY RF: 0 multivitamin 1 EACH tablet 1 ea PO DAILY RF: 0 Referrals / Follow Up: Ras Mukherjee DO [Primary Care Provider] - Gianfranco Razo MD [STAFF PHYSICIAN] - Disposition Discharge Orders: Discharge Patient (Routine); Ordered 09/08/21 Ordered By: Dr. Gianfranco Razo
--- NOTE | 2021-09-08 09:11 | PCM.DC.SUM ---
Providers Date of Admission: 09/07/21 Primary Care Physician: Dr. Ras Mukherjee, DO Reason For Visit: PAIN WITH KIDNEY STONES Diagnosis Discharge Diagnosis (1) Hydronephrosis with urinary obstruction due to ureteral calculus: Status: Acute Code(s): N13.2 - Hydronephrosis with renal and ureteral calculous obstruction Medications at Discharge Home Medications montelukast 10 mg tablet 10 mg PO DAILY 07/15/18 albuterol sulfate 90 mcg/actuation aerosol inhaler 1 - 2 puff INHALATION PRN PRN 12/31/19 fluticasone propionate 110 mcg/actuation HFA aerosol inhaler 1 - 2 puff INHALATION BID PRN 12/31/19 multivitamin 1 ea PO DAILY 01/10/20 cholecalciferol (vitamin D3) 50 mcg (2,000 unit) capsule 50 mcg PO DAILY 09/26/20 loratadine 10 mg tablet 10 mg PO DAILY 07/10/21 cephalexin 500 mg PO BID #10 cap 09/08/21 oxycodone-acetaminophen 1 tab PO Q6H PRN 7 Days #10 tab 09/08/21 Hospital Course Summary of Care Provided Minutes Spent on Discharge: 20 Hospital Course: Patient was admitted to the hospital with a large stone in the proximal ureter causing severe pain and obstruction CT scan was reviewed, she was then taken to the operating room for ureteroscopy and laser lithotripsy of stone and a stent placement was discharged after the procedure. Physical Exam Const alert and oriented x3 General Appearance: cooperative HEENT normocephalic, head/scalp atraumatic, EAC's normal and TM's normal bilaterally Eyes PERRL and EOMs intact bilaterally Pupil: sluggish Neck no lymphadenopathy, supple and no JVD General: trachea midline Lymph Lymphatic: no lymphadenopathy noted, lymphedema and lymphadenopathy Resp normal respiratory effort, normal air movement and clear to auscultation bilaterally Cardio regular rate, regular rhythm and peripheral pulses 2+ throughout GI soft to palpation, non-tender and non-distended Extremity normal capillary refill and no clubbing, cyanosis or edema General Extremity: no tenderness to palpation of joints or extremities Skin no rashes or lesions noted General Skin Exam: turgor normal Lesions: no lesions Rashes: no rashes Neuro CN's II-XII intact bilaterally Speech: speech normal Motor Exam: strength 5/5 throughout; Negative for general weakness Psych thought process normal, cooperative and affect normal Appearance: appropriate Weight / BMI Weight Weight: 64.9 kg Body Mass Index (BMI) 26.2 ABG / Lab / Microbiology Data Result Diagrams: 09/07/21 21:04 09/07/21 21:04 Laboratory: Laboratory Results - last 24 hr 09/07/21 20:55: Urine Color Yellow, Urine Clarity Clear, Urine pH 5.0, Ur Specific [place] 1.025, Urine Protein 15 H, Urine Glucose (UA) Normal, Urine Ketones Negative, Urine Occult Blood 150 H, Urine Nitrite Negative, Urine Bilirubin Negative, Urine Urobilinogen Normal, Ur Leukocyte Esterase 100 H, Urine RBC 10-25 SEEN, Urine WBC 0-5 SEEN, Ur Squamous Epith Cells 0 SEEN, Urine Bacteria 0 SEEN, Urine Mucus 0 SEEN 09/07/21 21:04: WBC 9.4, RBC 4.14 L, Hgb 12.0, Hct 34.7 L, MCV 83.8, MCH 29.0, MCHC 34.6, RDW Std Deviation 42.8, RDW Coeff of Rosa 13.8, Plt Count 212, MPV 11.2, Immature Gran % (Auto) 0.300, Neut % (Auto) 54.7, Lymph % (Auto) 26.3, [place] % (Auto) 11.8 H, Eos % (Auto) 6.3 H, Baso % (Auto) 0.6, Absolute Neuts (auto) 5.1, Absolute Lymphs (auto) 2.46, Nucleated RBC % 0 09/07/21 21:04: Sodium 140, Potassium 3.5, Chloride 106, Carbon Dioxide 27.0, Anion Gap 7, BUN 16, Creatinine 1.02, Estim Creat Clear Calc 51.03, Est GFR (MDRD) Af Amer 73, Est GFR (MDRD) Non-Af 60, BUN/Creatinine Ratio 15.7, Glucose 123 H, Calcium 9.2 Radiography Diagnostic Testing: Radiology Impression Abdomen/Pelvis CT 09/07/21 20:54 IMPRESSION: 6 mm obstructing proximal right ureteral stone resulting in [id number] right-sided hydronephrosis. Nonobstructing 2 and 3 mm stones left kidney. 12 mm right hepatic lobe fluid density highly suggestive of cyst. Bilateral L5 pars defects with low grade 1 anterolisthesis of L5 on S1. Electronically Signed: Elian Stock DO at 21:44 EST , KUB X-Ray 09/08/21 07:00 IMPRESSION: No change in 5 mm right ureteral stone. Electronically Signed: Sriram Monzon MD at 7:17 EST , D/C Instructions Discharge Diet: No restrictions Call your doctor if you observe: Fever of 101 or Higher Please Follow Up With: Gianfranco Razo MD When: Call [phone] for an appointment Meaningful Use Info Meaningful Use Diagnoses (Choose all that apply): None applicable Discharge Plan Admission Admit Date/Time: 09/07/21 22:36 Primary Reason for Your Visit: kidney stone Attending Provider: Gianfranco Razo Primary Care Provider: Ras Mukherjee Instructions Patient Instructions: Treating Kidney Stones ... Discharge Orders/Prescriptions Prescriptions: New cephalexin 500 mg capsule 500 mg PO BID Qty: 10 RF: 0 oxycodone-acetaminophen 5-325 mg tablet 1 tab PO Q6H PRN (Reason: pain) 7 Days Qty: 10 RF: 0 Continued montelukast [Singulair] 10 mg tablet 10 mg PO DAILY RF: 0 albuterol sulfate 90 mcg/actuation HFA aerosol inhaler 1 - 2 puff INHALATION PRN PRN (Reason: Shortness Of Breath) RF: 0 fluticasone propionate 110 mcg/actuation HFA aerosol inhaler 1 - 2 puff INHALATION BID PRN (Reason: asthma) RF: 0 cholecalciferol (vitamin D3) 50 mcg (2,000 unit) capsule 50 mcg PO DAILY RF: 0 loratadine [Allergy Relief (loratadine)] 10 mg tablet 10 mg PO DAILY RF: 0 multivitamin 1 EACH tablet 1 ea PO DAILY RF: 0 Referrals / Follow Up: Ras Mukherjee DO [Primary Care Provider] - Gianfranco Razo MD [STAFF PHYSICIAN] - Disposition Discharge Orders: Discharge Patient (Routine); Ordered 09/08/21 Ordered By: Dr. Gianfranco Razo
[2021-09-08] MEDS: Cefazolin 1 GM/50 ML BAG IV (09:32)
--- NOTE | 2021-09-08 10:07 | OP.PCM_ITS ---
Report of Operation Date of Procedure: 09/08/21 Pre-Operative Diagnosis: Obstructing right ureteral calculi Post-Operative Diagnosis: Same Surgery/Procedure Performed:: Cystoscopy, right retrograde pyelogram interpretation of images, right ureteroscopy laser lithotripsy of stone and right stent placement Description of Surgical Findings:: Indication 51-year-old female presents to the hospital with severe pain in the right side she had a stone in the proximal right ureter recommended to go to the operating room for ureteroscopy laser and stent she understands is possible I may just place a stent if I am not able to laser the stone. We discussed the risk of the procedure and the benefits of treating the stone. She signed the consent form in the preoperative setting. Patient was taken back to the operating room after smooth induction of general anesthesia she was placed in dorsolithotomy position. The urethra vaginal area were prepped and draped in usual sterile fashion, I went into the bladder with a 21 Pakistani rigid cystourethroscope, I then cannulated the right ureteral orifice with a Pollick catheter performed a retrograde pyelogram injecting contrast up into the kidney can see contrast going up into the kidney and then there was a little bit of narrowing in the UPJ and then a stone apparently behind this UPJ narrowing. I then advanced a hydrophilic 0.038 Glidewire up into the kidney, and then over the wire I went in with a 7.9 [place] flexible Olympus ureteroscope, I pulled the wire up and moved my way up the ureter when I got the UPJ was too stenotic so I put the wire back through in with the ureteroscope and then over the wire went into the renal pelvis and encountered the large stone in the renal pelvis. I then used a 260 ?m laser fiber and performed laser lithotripsy on the stone energy settings were at first 0.6 J and 6 Hz but then I increased my energy as I went along and a final energy settings were about 1 J and 10 Hz, after successfully lasering the stone into little tiny pieces went down the ureter some and then I tried to go back up the ureter again at the use a wire to get through the UPJ area that was a little bit stenotic inspected the upper pole midpole lower pole the kidney there were no other major fragments performed a retrograde pyelogram again could see the contrast filling the pelvis. I then left the wire in place back down through the ureter there is no signs of injury trauma or damage the ureter all the way down and remove the ureteroscope. I then backloaded over the Glidewire with the cystoscope and then a advance the stent up into the right kidney the stent was a 6 Pakistani by 26 cm stent once a stent was in proper position I pulled the wire and the stent coiled in the kidney and bladder good position I then drained the patient's bladder. She will go home today with antibiotics and pain medicine and follow-up in about 10 days to remove the stent. Surgeon: Dung Type of Anesthesia: General Drains: stent Admit VTE Documentation VTE Present on Admission: No VTE Mechan Device Prophylaxis: SCD's VTE Pharm Prophylaxis ordered?: No
--- NOTE | 2021-09-08 10:28 | PCM.PN.BLA ---
Progress Note expecting patient to go home after surgery but in th PACU became Tachycardia and spiked a fever 103 so possible bacterimia after ureteroscopy and laser of stone will hold discharge till fevere resolves will start broad spectrum antibiotics consult hospitalist.
[2021-09-08] MEDS: 0.9% Normal Saline 1,000 ML 100 ML IV ×2 (10:45→22:12)
[2021-09-08] MEDS: Ceftriaxone 1 GM/50 ML BAG IV ×2 (10:46→22:10)
--- NOTE | 2021-09-08 11:55 | CON.PCM.HO_ITS ---
Assessment & Plan Assessment/Plan (1) Hydronephrosis with urinary obstruction due to ureteral calculus: (2) Fever: QUALIFIERS: Fever type: unspecified Qualified Code(s): R50.9 - Fever, unspecified PLAN: 1. fever ongoing on ceftriaxone check blood cultures does have COVID 19. Check CXR. 2. COVID 19 no prior symptoms, though currently on oxygen hold of tmt at this time. 3. Ureteral stone s/p lithotripsy and stent. mgmt per urology. 4. VTE prophylaxis: SCDs Thank for the consult. The hospital service will follow along during this hospitalization. HPI Consult Data Date of Consult: 09/08/21 HPI Narrative HPI Narrative: THERON GONZALEZ, is a 51 F who presents complains of flank pain. Seen in the ED on 09/07, found to have a 6mm right proximal ureteral stone and admitted. Taken to OR today for cystoscopy today with lithotripsy and stent placement. Meanwhile she developed a fever of 104f. The hospitalist service was consulted with this patient's fever. Pt was + for COVID 19. She previously contracted COVID 19 and has been vaccinated and boosted with the Pfizer vaccine. [facility] Medical History Asthma Kidney stones Left breast lump Seasonal allergies Home Medications montelukast 10 mg tablet 10 mg PO DAILY 07/15/18 [History Last Taken 09/07/21] albuterol sulfate 90 mcg/actuation aerosol inhaler 1 - 2 puff INHALATION PRN PRN 12/31/19 [History Last Taken Unknown] fluticasone propionate 110 mcg/actuation HFA aerosol inhaler 1 - 2 puff INHALATION BID PRN 12/31/19 [History Last Taken 09/07/21] multivitamin 1 ea PO DAILY 01/10/20 [History Last Taken 09/07/21] cholecalciferol (vitamin D3) 50 mcg (2,000 unit) capsule 50 mcg PO DAILY 09/26/20 [History Last Taken 09/07/21] loratadine 10 mg tablet 10 mg PO DAILY 07/10/21 [History Last Taken 09/07/21] cephalexin 500 mg PO BID #10 cap 09/08/21 [Rx Last Taken Unknown] oxycodone-acetaminophen 1 tab PO Q6H PRN 7 Days #10 tab 09/08/21 [Rx Last Taken Unknown] Allergy/AdvReac Type Severity Reaction Status Date / Time No Known Allergies Allergy Verified 09/07/21 20:43 Family History Father Heart disease Cancer brain CVA (cerebral vascular accident) Myocardial infarction Grandmother Colon cancer Arthritis Aunt Breast cancer Unknown Breast cancer Mother Arthritis Thyroid disorder Surgical History History of wisdom tooth extraction Hx of breast implants, bilateral S/P endometrial ablation Social History household members: spouse Smoking Status: Never smoker alcohol intake: current details: social substance use type: does not use caffeine: Yes what type of physical activity do you participate in: walking and other details: Crossfit frequency: 5-6 times per week seatbelt use: always do you feel safe at home: Yes 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 All review of systems were negative except as mentioned above in the history of present illness and the other review of systems. Physical Exam Const alert General Appearance: cooperative HEENT normocephalic and head/scalp atraumatic Neck no lymphadenopathy Resp normal respiratory effort and no retractions Resp Narrative: bibasilar crackles Cardio regular rate, regular rhythm, S1 normal heart sound and S2 normal heart sound GI normal to inspection, nondistended, normoactive bowel sounds, soft to palpation, non-tender and non-distended Extremity normal to inspection Skin no rashes or lesions noted Neuro Sensorium / Orientation: awake and alert Psych affect normal Lab / Micro Data Attestation: I reviewed the patient's lab results. Result Diagrams: 09/07/21 21:04 09/07/21 21:04 Labs: Laboratory Results - last 24 hr 09/07/21 20:55: Urine Color Yellow, Urine Clarity Clear, Urine pH 5.0, Ur Speci fic [place] 1.025, Urine Protein 15 H, Urine Glucose (UA) Normal, Urine Ketones Negative, Urine Occult Blood 150 H, Urine Nitrite Negative, Urine Bilirubin Negative, Urine Urobilinogen Normal, Ur Leukocyte Esterase 100 H, Urine RBC 10- 25 SEEN, Urine WBC 0-5 SEEN, Ur Squamous Epith Cells 0 SEEN, Urine Bacteria 0 SEEN, Urine Mucus 0 SEEN 09/07/21 21:04: WBC 9.4, RBC 4.14 L, Hgb 12.0, Hct 34.7 L, MCV 83.8, MCH 29.0, MCHC 34.6, RDW Std Deviation 42.8, RDW Coeff of Rosa 13.8, Plt Count 212, MPV 11.2, Immature Gran % (Auto) 0.300, Neut % (Auto) 54.7, Lymph % (Auto) 26.3, [place] % (Auto) 11.8 H, Eos % (Auto) 6.3 H, Baso % (Auto) 0.6, Absolute Neuts (auto) 5.1, Absolute Lymphs (auto) 2.46, Nucleated RBC % 0 09/07/21 21:04: Sodium 140, Potassium 3.5, Chloride 106, Carbon Dioxide 27.0, Anion Gap 7, BUN 16, Creatinine 1.02, Estim Creat Clear Calc 51.03, Est GFR (MDRD) Af Amer 73, Est GFR (MDRD) Non-Af 60, BUN/Creatinine Ratio 15.7, Glucose 123 H, Calcium 9.2 Micro: Microbiology 09/08/21 08:50 Nasal Secretion SARS-CoV-2 Antigen (Rapid) - Final SARS-CoV-2 (COVID 19) Radiology Impression Abdomen/Pelvis CT 09/07/21 20:54 IMPRESSION: 6 mm obstructing proximal right ureteral stone resulting in [id number] right-sided hydronephrosis. Nonobstructing 2 and 3 mm stones left kidney. 12 mm right hepatic lobe fluid density highly suggestive of cyst. Bilateral L5 pars defects with low grade 1 anterolisthesis of L5 on S1. Electronically Signed: Elian Stock DO at 21:44 EST , KUB X-Ray 09/08/21 07:00 IMPRESSION: No change in 5 mm right ureteral stone. Electronically Signed: Sriram Monzon MD at 7:17 EST , Charges/Coding Visit Charges Office Visits / Consults: [id number] OP Consult L4
--- NOTE | 2021-09-08 11:55 | RAD_ITS ---
STUDY: X-RAY CHEST REASON FOR EXAM: Female, 51 years old. fever TECHNIQUE: PA and lateral views of the chest. COMPARISON: None. FINDINGS: The lungs are clear and expanded. Slightly elevated right hemidiaphragm. Normal size heart. Normal mediastinum and alexx. Normal visualized pulmonary arteries. Normal visualized aortic arch and descending thoracic aorta. Normal visualized thoracic spine. Normal visualized ribs, clavicles, and shoulders. There is no demonstrated abnormality of the visualized soft tissue structures of the upper abdomen. RAD/Chest PA and Lateral IMPRESSION: Normal x-ray examination of the chest. Electronically Signed: Sriram Monzon MD at 12:18 EST ,
--- NOTE | 2021-09-08 11:56 | NURSING ---
Pt went to Radiology via bed at this time.
[2021-09-08] MEDS: Ibuprofen 600 MG Tablet PO (17:27)
[2021-09-08] MEDS: Ketorolac 15 MG/ML Vial IV (19:56)
[2021-09-09] MEDS: Acetaminophen 325 MG Tablet 650 MG PO (00:03)
[2021-09-09 02:30] VITALS: BP 99/61; PULSE 72; RESP 18; TEMP 36.5; O2SAT 96
[2021-09-09] MEDS: Ondansetron 4 MG/2 ML Vial IV (02:40)
[2021-09-09 07:33] LABS: Absolute Neutrophil Count 11.8 X10^3/uL (2.0-7.7); Basophil# 0.04 X10^3/uL; Basophil% 0.3 % (0-1); Eosinophil# 0.02 X10^3/uL; Eosinophils% 0.1 % (0-5); Hemoglobin 9.4 g/dL (12.0-15.0); Lymphocyte % 10.2 % (19-41); Mean Corp Hgb Conc 32.4 g/dL (32-36); Mean Corpuscular Hgb 28.1 pg (27.0-32.0); Mean Corpuscular Volume 86.6 fL (81-99); Mean Platelet Vol. 12.8 fl (6.2-12.0); Monocyte# 0.88 X10^3/uL; NRBC Flagged by Analyzer 0 % (0-5); Neutrophil # 11.78 X10^3/uL (2.7-7.7); Neutrophil % 80.4 % (47-70); POSITIVE COUNT YES; POSITIVE MORPHOLOGY YES; Platelet Count 88 K/mm3 (150-450); RBC Distribution Width CV 15.1 % (11.6-14.6); RBC Distribution Width SD 47.9 fl (35.1-43.9); Red Blood Count 3.35 M/mm3 (4.2-5.4); White Blood Count 14.7 K/mm3 (4.4-11.0)
[2021-09-09 07:35] LABS: Differential Indicated SCAN CRITERIA MET
[2021-09-09 07:46] LABS: Anion Gap 7 (5-15); BUN 24 mg/dL (7-18); BUN/Creat Ratio 17.8 RATIO (10-20); Calcium,Total 7.7 mg/dL (8.5-10.1); Chloride 108 mmol/L (98-107); Creatinine, Serum 1.35 mg/dL (0.55-1.02); EST Glomerular Filtration Rate 44 mL/min (>60); Est Glom Filt Rate - Afr Amer 53 mL/min (>60); Estimated Creatinine Clearance 38.55 ml/min; Glucose 97 mg/dL (74-106); Sodium Level 135 mmol/L (136-145)
[2021-09-09 08:02] LABS: Platelet Estimate MOD DEC (ADEQ)
--- NOTE | 2021-09-09 08:13 | PCM.PN.GU ---
Subjective Subjective Status post ureteroscopy and laser of a stone in the right kidney after the procedure patient did have a urinary tract infection with E. coli which was positive she had fevers which is now resolved blood pressure is slightly low but she is up and around tolerating regular food looks healthy. She does not look toxic or sick. Plan to discharge home today with Kiara Objective Data Objective Data Vital Signs: Vital Signs Temp Pulse Resp BP Pulse Ox 97.7 F L 72 18 99/61 96 09/09/21 02:30 09/09/21 02:30 09/09/21 02:30 09/09/21 02:30 09/09/21 02:30 Oxygen Flow Rate (L/min) 2 Oxygen Delivery Method Room Air Weight: 64.9 kg Body Mass Index (BMI) 26.2 Intake & Output: Intake and Output for Last 24 Hours 09/07/21 09/08/21 09/09/21 23:59 23:59 23:59 Intake Total 1000 / 1000 4424.58 / 4424.58 400 / 400 Output Total 1400 / 1400 500 / 500 Balance 1000 / 800 3024.58 / 3024.58 -100 / -100 Lab / Micro Data Result Diagrams: 09/09/21 06:46 09/09/21 06:46 Labs: Laboratory Results - last 24 hr 09/09/21 06:46: WBC 14.7 H, RBC 3.35 L, Hgb 9.4 L, Hct 29.0 L, MCV 86.6, MCH 28.1, MCHC 32.4 D, RDW Std Deviation 47.9 H, RDW Coeff of Rosa 15.1 H, Plt Count 88 L, MPV 12.8 H, Immature Gran % (Auto) 3.000 H, Neut % (Auto) 80.4 H, Lymph % (Auto) 10.2 L, [place] % (Auto) 6.0, Eos % (Auto) 0.1, Baso % (Auto) 0.3, Absolute Neuts (auto) 11.8 H, Absolute Lymphs (auto) 1.50, Nucleated RBC % 0, Platelet Estimate MOD DEC 09/09/21 06:46: Sodium 135 L, Potassium 4.0, Chloride 108 H, Carbon Dioxide 20.0 L, Anion Gap 7, BUN 24 H, Creatinine 1.35 H, Estim Creat Clear Calc 38.55, Est GFR (MDRD) Af Amer 53 L, Est GFR (MDRD) Non-Af 44 L, BUN/Creatinine Ratio 17.8, Glucose 97, Calcium 7.7 L Micro: Microbiology 09/08/21 08:50 Nasal Secretion SARS-CoV-2 Antigen (Rapid) - Final SARS-CoV-2 (COVID 19) Radiography Diagnostic Testing: Radiology Impression Chest X-Ray 09/08/21 11:55 IMPRESSION: Normal x-ray examination of the chest. Electronically Signed: Sriram Monzon MD at 12:18 EST , Physical Exam Const alert and oriented x3 General Appearance: cooperative HEENT normocephalic, head/scalp atraumatic, EAC's normal and TM's normal bilaterally Eyes PERRL and EOMs intact bilaterally Pupil: sluggish Neck no lymphadenopathy, supple and no JVD General: trachea midline Lymph Lymphatic: no lymphadenopathy noted, lymphedema and lymphadenopathy Resp normal respiratory effort, normal air movement and clear to auscultation bilaterally Cardio regular rate, regular rhythm and peripheral pulses 2+ throughout GI soft to palpation, non-tender and non-distended Extremity normal capillary refill and no clubbing, cyanosis or edema General Extremity: no tenderness to palpation of joints or extremities Skin no rashes or lesions noted General Skin Exam: turgor normal Lesions: no lesions Rashes: no rashes Neuro CN's II-XII intact bilaterally Speech: speech normal Motor Exam: strength 5/5 throughout; Negative for general weakness Psych thought process normal, cooperative and affect normal Appearance: appropriate Assessment & Plan Assessment/Plan (1) Fever: QUALIFIERS: Fever type: unspecified Qualified Code(s): R50.9 - Fever, unspecified (2) Hydronephrosis with urinary obstruction due to ureteral calculus: (3) Urinary tract infection:
[2021-09-09] MEDS: 0.9% Normal Saline 1,000 ML 100 ML IV (08:55)
[2021-09-09 08:56] VITALS: BP 107/72; PULSE 54; RESP 18; TEMP 36.4; O2SAT 96
--- NOTE | 2021-09-09 10:28 | NURSING ---
Dr. Olson is aware that pt is going home with prescription for Cipro. Dr. Olson informed this nurse that Rocephin does not need to be hung and infused as pt is going home on Cipro.
--- NOTE | 2021-09-09 10:36 | PCM.PN.HOSP ---
Subjective Subjective Feels better. No events overnight. Objective Data Objective Data Vital Signs: Vital Signs Temp Pulse Resp BP Pulse Ox 36.4 C L 54 L 18 107/72 96 09/09/21 08:56 09/09/21 08:56 09/09/21 08:56 09/09/21 08:56 09/09/21 08:56 Oxygen Flow Rate (L/min) 2 Oxygen Delivery Method Room Air Weight: 64.9 kg Body Mass Index (BMI) 26.2 Intake & Output: Intake and Output for Last 24 Hours 09/07/21 09/08/21 09/09/21 23:59 23:59 23:59 Intake Total 1000 / 1000 4424.58 / 4424.58 1553.33 / 1553.33 Output Total 1400 / 1400 500 / 500 Balance 1000 / 800 3024.58 / 3024.58 1053.33 / 1053.33 Lab / Micro Data Result Diagrams: 09/09/21 06:46 09/09/21 06:46 Labs: Laboratory Results - last 24 hr 09/09/21 06:46: WBC 14.7 H, RBC 3.35 L, Hgb 9.4 L, Hct 29.0 L, MCV 86.6, MCH 28.1, MCHC 32.4 D, RDW Std Deviation 47.9 H, RDW Coeff of Rosa 15.1 H, Plt Count 88 L, MPV 12.8 H, Immature Gran % (Auto) 3.000 H, Neut % (Auto) 80.4 H, Lymph % (Auto) 10.2 L, Brooks % (Auto) 6.0, Eos % (Auto) 0.1, Baso % (Auto) 0.3, Absolute Neuts (auto) 11.8 H, Absolute Lymphs (auto) 1.50, Nucleated RBC % 0, Platelet Estimate MOD DEC 09/09/21 06:46: Sodium 135 L, Potassium 4.0, Chloride 108 H, Carbon Dioxide 20.0 L, Anion Gap 7, BUN 24 H, Creatinine 1.35 H, Estim Creat Clear Calc 38.55, Est GFR (MDRD) Af Amer 53 L, Est GFR (MDRD) Non-Af 44 L, BUN/Creatinine Ratio 17.8, Glucose 97, Calcium 7.7 L Micro: Microbiology 09/08/21 08:50 Nasal Secretion SARS-CoV-2 Antigen (Rapid) - Final SARS-CoV-2 (COVID 19) Radiography Diagnostic Testing: Radiology Impression Chest X-Ray 09/08/21 11:55 IMPRESSION: Normal x-ray examination of the chest. Electronically Signed: Sriram Monzon MD at 12:18 EST , Physical Exam Const alert and no apparent distress Resp normal respiratory effort, no retractions, no use of accessory muscles and clear to auscultation bilaterally Cardio regular rate, regular rhythm, S1 normal heart sound and S2 normal heart sound GI normal to inspection, nondistended, normoactive bowel sounds, soft to palpation and non-tender Assessment & Plan Assessment/Plan (1) Hydronephrosis with urinary obstruction due to ureteral calculus: (2) Fever: QUALIFIERS: Fever type: unspecified Qualified Code(s): R50.9 - Fever, unspecified PLAN: 1. fever resolved blood cultures thus far negative does have COVID 19. Check CXR. 2. COVID 19 asymptomatic CXR negative quaratine 5 days, then wear a mask for 5 additional days 3. Ureteral stone s/p lithotripsy and stent. mgmt per urology. 4. VTE prophylaxis: SCDs Medically stable for discharge. FRANKIE Razo. Charges/Coding Visit Charges Inpatient E&M: 96240 Subs Hosp L2
== END 2021-09-09 11:20 | disposition home or self-care (01) | DRG 693 ==
LOC: ED 22:31 → MS3 22:55
PROVIDERS: Admitting Provider Urology; Emergency Provider Emergency Medicine; PCP Student in an Organized Health Care Education/Training Program; Visit Provider Urology
PROC: (CPT 52356; principal; 2021-09-08 09:00)
DX: N13.2 Hydronephrosis with renal and ureteral calculous obstruction (principal); U07.1 COVID-19; J45.909 Unspecified asthma, uncomplicated; N39.0 Urinary tract infection, site not specified; B96.20 Unspecified Escherichia coli [E. coli] as the cause of diseases classified elsewhere; N99.89 Other postprocedural complications and disorders of genitourinary system; Z87.442 Personal history of urinary calculi; Z79.899 Other long term (current) drug therapy
CPT/HCPCS: 52356; 00918; 71046; 74018; 74176; 76000; 80048; 81001; 85025; 87040; 87426; 96361; 96365; 96375; 96376; 99218; 99283; J7030; J7120; A4216; C2617; G0378; J2405

== ENCOUNTER 2021-09-27 07:55 | Outpatient (CLI) | payer OTHER, SELFPAY ==
[2021-10-03 13:59] LABS: HPV APTIMA, High Risk Negative (Negative)
== END 2021-09-27 23:59 | disposition home or self-care (01) ==
LOC: LABSPEC 09-28 07:56
PROVIDERS: PCP Student in an Organized Health Care Education/Training Program; Visit Provider Nurse Practitioner Women's Health
DX: Z01.419 Encounter for gynecological examination (general) (routine) without abnormal findings (principal)
CPT/HCPCS: 87624; 88175; G0145

== ENCOUNTER 2021-10-08 16:06 | Outpatient (CLI) | payer OTHER, SELFPAY ==
--- NOTE | 2021-10-08 16:07 | BI_ITS ---
MAMMOGRAPHY - BILATERAL SCREENING REASON FOR EXAM: Female, 51 years old. Routine annual screening examination. PERTINENT HISTORY: Aunt with breast cancer. Prior left excisional breast biopsy. Bilateral breast implants. TECHNIQUE: Digital bilateral breast shannan (3D mammographic acquisition) in the CC and MLO projections. 2-D mediolateral oblique (MLO) and craniocaudad (CC) views of both breasts were obtained. CAD: Full Field Digital Mammography with Computer Added Detection was performed. COMPARISON: Comparison is made with prior study dated 10/05/2020 and 12/29/2019. FINDINGS: Breast Composition: The breasts are extremely dense, which lowers the sensitivity of mammography. There are no dominant masses or suspicious calcifications. Stable appearance of the bilateral breast implants. No other significant abnormalities are identified. There has been no significant change since the prior study. BI/SCRN MAMM (CAD)W/SHANNAN BILAT IMPRESSION: Stable bilateral screening mammogram. Yearly follow-up mammogram recommended. (A) ASSESSMENT CATEGORY: BIRADS Category 2: Benign. A letter regarding these results will be sent to the patient by the facility within 30 days. Approximately 10% of breast cancers are not detected by mammography. A normal mammogram should not delay biopsy of a clinically suspicious abnormality. [id number] Electronically Signed: Roland Goyal MD at 8:09 EST ,
== END 2021-10-08 23:59 | disposition home or self-care (01) ==
LOC: OPBI 16:06
PROVIDERS: PCP Student in an Organized Health Care Education/Training Program; Visit Provider Nurse Practitioner Women's Health
DX: Z12.31 Encounter for screening mammogram for malignant neoplasm of breast (principal)
CPT/HCPCS: 77063; 77067

== ENCOUNTER → 2022-10-16 | Outpatient (CLI) | payer OTHER, SELFPAY ==
--- NOTE | 2022-10-16 15:04 | BI_ITS ---
MAMMOGRAPHY - BILATERAL SCREENING 3-D TOMOSYNTHESIS REASON FOR EXAM: Female, 52 years old. Routine screening PERTINENT HISTORY: Aunt with breast cancer implants TECHNIQUE: 2-D mammograms and 3-D Tomosynthesis of the breast (s) were performed. CAD was performed, along with implant displaced views. COMPARISON: 10/08/2021 FINDINGS: The breast composition is composed of scattered fibroglandular density. Scattered benign calcifications are seen. No dense spiculated masses or suspicious microcalcifications are identified. No architectural distortion is identified. There is no skin thickening or retraction. There has been no significant change since the prior study. Implants are intact and free of complication BI/SCRN MAMM (CAD)W/SHANNAN BILAT IMPRESSION: No mammographic signs of malignancy. Routine yearly mammograms recommended. ASSESSMENT CATEGORY: BIRADS Category 2: Benign. A letter regarding these results will be sent to the patient by the facility within 30 days. FOLLOW UP RECOMMENDATION: Yearly follow up mammogram recommended. (A) Approximately 10% of breast cancers are not detected by mammography. A normal mammogram should not delay biopsy of a clinically suspicious abnormality. Electronically Signed: Ron Luong MD at 15:37 EDT ,
== END | disposition home or self-care (01) ==
LOC: OPBI 15:03
PROVIDERS: PCP Student in an Organized Health Care Education/Training Program; Visit Provider Nurse Practitioner Women's Health
DX: Z12.31 Encounter for screening mammogram for malignant neoplasm of breast (principal); Z80.3 Family history of malignant neoplasm of breast
CPT/HCPCS: 77063; 77067

== ENCOUNTER 2022-12-17 08:52 | Outpatient (RCR) | payer OTHER, SELFPAY | END 2023-01-01 23:59 | LOC: NS 08:52 | PROVIDERS: PCP Student in an Organized Health Care Education/Training Program; Referring Provider Obstetrics & Gynecology; Visit Provider Obstetrics & Gynecology | DX: E66.3 Overweight (principal); Z71.3 Dietary counseling and surveillance; E78.00 Pure hypercholesterolemia, unspecified; Z68.27 Body mass index [BMI] 27.0-27.9, adult | CPT/HCPCS: 97802 ==

== ENCOUNTER 2022-12-29 11:15 | Emergency (ER) | payer OTHER, SELFPAY ==
[2022-12-29] VITALS (9 sets, daily range): BP systolic 104–166; BP diastolic 67–93; PULSE 53–75; RESP 8–18; TEMP 36.7; O2SAT 96–100; BMI 26.3
--- NOTE | 2022-12-29 11:20 | RAD_ITS ---
STUDY: X-RAY CHEST REASON FOR EXAM: Female, 52 years old. Substernal chest pain TECHNIQUE: Single AP portable view of the chest. COMPARISON: 09/08/2021 FINDINGS: EKG leads overlie the chest The lungs are clear and expanded. There is no demonstrated pleural abnormality. Normal size heart. Normal mediastinum and alexx. Normal visualized pulmonary arteries. Normal visualized aortic arch and descending thoracic aorta. Normal visualized thoracic spine. Normal visualized ribs, clavicles, and shoulders. There is no demonstrated abnormality of the visualized soft tissue structures of the upper abdomen. RAD/Chest 1 View (Portable) IMPRESSION: Normal x-ray examination of the chest. Electronically Signed: Ron Luong MD at 12:16 EDT ,
--- NOTE | 2022-12-29 11:31 | EDS_ITS ---
HPI <GA Puckett - Last Filed: 12/29/22 14:15> History of Present Illness Chief Complaint: Chest Pain Narrative Narrative: 52-year-old female with PMH of HLD, asthma, allergies presents with chest pain. For the last week she has had midsternal chest tightness that lasts about a minute and happens a couple times a day with no pattern. Its not exertional or pleuritic. Today it occurred at 8 AM and has been continuous and today she also feels slightly short of breath and lightheaded. She has some congestion and slight cough that started today. She has no nausea, vomiting, abdominal or back pain. She denies cardiac history and does not smoke. She has been using her inhaler a couple times a day. She does not use it overnight or have orthopnea or leg swelling. She has no history of DVT/PE or risk factors. 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) Asthma BMI 27.0-27.9,adult Genital herpes Hydronephrosis with urinary obstruction due to ureteral calculus Kidney stones Reactive lymphadenopathy Seasonal allergies Home Medications montelukast 10 mg tablet (Singulair) 10 mg PO DAILY ALLERGIES 07/15/18 [History Last Taken 09/07/21] albuterol sulfate 90 mcg/actuation aerosol inhaler 1 - 2 puff inhalation PRN PRN Shortness Of Breath 12/31/19 [History Last Taken Unknown] fluticasone propionate 110 mcg/actuation HFA aerosol inhaler 1 - 2 puff inhalation BID PRN asthma 12/31/19 [History Last Taken 09/07/21] multivitamin 1 ea PO DAILY supplement 01/10/20 [History Last Taken 09/07/21] soy isoflavone-black cohosh root-magnolia bark 155 mg capsule (Estroven) cap PO 09/30/22 [History Last Taken Unknown] tumeric 100 mg-hilario 150 mg-olive 50 mg-oreg 150 mg-caprylate capsule cap PO 09/30/22 [History Last Taken Unknown] valacyclovir 1 gram tablet 1,000 mg PO DAILY PRN prn outbreaks 5 days #20 tabs 09/30/22 [Rx Last Taken Unknown] pantoprazole 40 mg tablet,delayed release (Protonix) 40 mg PO DAILY 14 days #14 tabs 12/29/22 [Rx Last Taken Unknown] Allergy/AdvReac Type Severity Reaction Status Date / Time No Known Allergies Allergy Verified 12/29/22 11:19 Family History (Reviewed 12/27/22 @ 13:41 by Huyen Heck SEL[employer] SEALING [employer]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, 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) Father Heart disease Cancer brain CVA (cerebral vascular accident) Myocardial infarction Grandmother Colon cancer Arthritis Aunt Breast cancer Unknown Breast cancer Mother Arthritis Thyroid disorder Surgical History History of wisdom tooth extraction Hx of breast implants, bilateral S/P endometrial ablation Social History household members: spouse Smoking Status: Never smoker alcohol intake: current details: social substance use type: does not use caffeine: Yes what type of physical activity do you participate in: walking and other details: Crossfit frequency: 5-6 times per week seatbelt use: always do you feel safe at home: Yes 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 CVS: Positive for chest pain. Negative for palpitations, syncope. Respiratory: Positive for shortness of breath, cough. GI: Negative for abdominal pain, nausea, vomiting, diarrhea. Neuro: Negative for headache. EXAM <GA Puckett - Last Filed: 12/29/22 14:15> Physical Exam Narrative Exam Narrative: CONST: Patient sitting in no acute distress. EYES: Normal inspection. ENT: Normal inspection, moist mucous membranes. NECK: Normal inspection. No JVD. RESP: No respiratory distress, CTAB. CVS: Regular rate and rhythm, no murmur, no gallop. ABD: Soft and nontender, no guarding or rebound, nondistended. SKIN: Color normal, no rash, warm, dry, intact. EXTREMITIES: Normal appearance, no pedal edema. No calf tenderness. NEURO: Oriented x4. PSYCH: Normal affect. Const Vital Signs: 12/29/22 11:16 12/29/22 11:44 12/29/22 11:44 Temperature 98.1 F Temperature Source Temporal Pulse Rate 66 62 60 Respiratory Rate 18 8 L Blood Pressure 144/85 H 166/67 H 129/93 H Blood Pressure Mean 104 100 Pulse Ox 98 97 Oxygen Delivery Method Room Air Room Air 12/29/22 11:47 12/29/22 11:32 12/29/22 11:49 Temperature Temperature Source Pulse Rate 74 69 Respiratory Rate 18 Blood Pressure 131/77 H 131/77 H Blood Pressure Mean 95 Pulse Ox 96 97 Oxygen Delivery Method Room Air Room Air 12/29/22 11:54 12/29/22 11:58 12/29/22 13:41 Temperature Temperature Source Pulse Rate 69 75 53 L Respiratory Rate 16 10 L Blood Pressure 116/70 107/69 104/67 Blood Pressure Mean 81 79 Pulse Ox 96 100 Oxygen Delivery Method Room Air Room Air 12/29/22 14:16 Temperature Temperature Source Pulse Rate 74 Respiratory Rate 16 Blood Pressure 121/67 H Blood Pressure Mean Pulse Ox 98 Oxygen Delivery Method <Dr. Mckay Chambers DO - Last Filed: 12/29/22 14:19> Physical Exam Const Vital Signs: 12/29/22 11:16 12/29/22 11:44 12/29/22 11:44 Temperature 98.1 F Temperature Source Temporal Pulse Rate 66 62 60 Respiratory Rate 18 8 L Blood Pressure 144/85 H 166/67 H 129/93 H Blood Pressure Mean 104 100 Pulse Ox 98 97 Oxygen Delivery Method Room Air Room Air 12/29/22 11:47 12/29/22 11:32 12/29/22 11:49 Temperature Temperature Source Pulse Rate 74 69 Respiratory Rate 18 Blood Pressure 131/77 H 131/77 H Blood Pressure Mean 95 Pulse Ox 96 97 Oxygen Delivery Method Room Air Room Air 12/29/22 11:54 12/29/22 11:58 12/29/22 13:41 Temperature Temperature Source Pulse Rate 69 75 53 L Respiratory Rate 16 10 L Blood Pressure 116/70 107/69 104/67 Blood Pressure Mean 81 79 Pulse Ox 96 100 Oxygen Delivery Method Room Air Room Air 12/29/22 14:16 Temperature Temperature Source Pulse Rate 74 Respiratory Rate 16 Blood Pressure 121/67 H Blood Pressure Mean Pulse Ox 98 Oxygen Delivery Method MDM <Amira Garcia PA - Last Filed: 12/29/22 14:15> MDM MDM Narrative Medical decision making narrative: History gathered from: Patient and family Patient in 1 week of transient midsternal chest tightness became worse today lasting about 3 hours of presentation. Also feels lightheaded. She appears well and nontoxic and is afebrile with normal vital signs. Heart is regular rate and rhythm with no murmurs, lungs clear, abdomen soft and nontender. Cardiac work-up was ordered and she was given aspirin. EKG is sinus rhythm with no ischemic changes and troponin x2 negative. D-dimer negative. Basic labs unremarkable and CXR shows no acute process. Since she had no improvement after nitro and cardiac work-up is negative I do not think this is ACS. GI cocktail was trialed but did not really help either. Patient states she did not want to try anything else just is comfortable going home and following up with her primary care doctor. She was told to return for worsening symptoms and was discharged in stable condition. I have personally performed a face to face assessment of the patient and have reviewed the BETO Note. I performed a substantive portion of the visit including all aspects of the following. My dean findings include: History is [patient presents with chest discomfort off and on for about a week. Patient describes a retrosternal pressure or tightness and burning that is not associated with activity. Today she was at rest when she developed the discomfort and has been more continuous over the last 3 hours. She denies significant shortness of breath. She denies radiation of the pain. She had no diaphoresis or nausea or vomiting. Patient tells me her father had an UT in his 40s. Patient was told during her last checkup that she had cholesterol. She denies recent travel or surgery. No history of PE or DVT. No recent illness otherwise. Currently rates her discomfort as a 5 out of 10.] Exam is [HEENT-PERRLA, EOMI. Cranial nerves II through XII grossly intact. TMs clear. Mucous membranes moist. No adenopathy. Cardiovascular-regular rate and rhythm without murmur or ectopy Lungs-clear to auscultation, chest wall stable without crepitus or subcu emphysema Abdomen-normoactive bowel sounds, soft, nontender, no rebound or rigidity, no peritoneal signs. Extremities-intact ?4, normal range of motion, normal pulses, atraumatic] Medical Decison Making [patient presents with chest discomfort off and on for a week. Risk factors include family history as well as cholesterol and patient age. In the differential would be acute coronary syndrome versus PE versus other etiology such as GERD. EKG obtained on arrival showed a sinus rhythm with no acute ST segment changes. Patient will be given aspirin and nitroglycerin. D-dimer and cardiac work-up initiated.] Other additions or changes: [None] Lab Data Attestation: I reviewed the patient's lab results. Labs: Laboratory Results - last 24 hr 12/29/22 12/29/22 12/29/22 11:30 11:30 11:30 WBC 8.5 RBC 4.47 Hgb 12.8 Hct 38.6 MCV 86.4 MCH 28.6 MCHC 33.2 RDW Std Deviation 46.5 H RDW Coeff of Rosa 14.6 Plt Count 250 MPV 10.5 Immature Gran % (Auto) 0.400 Neut % (Auto) 40.8 L Lymph % (Auto) 42.5 H [place] % (Auto) 9.5 Eos % (Auto) 6.0 H Baso % (Auto) 0.8 Absolute Neuts (auto) 3.5 Absolute Lymphs (auto) 3.62 Nucleated RBC % 0 D-Dimer Quant (PE/DVT) 0.35 Sodium 141 Potassium 3.9 Chloride 107 Carbon Dioxide 27.0 Anion Gap 7 BUN 12 Creatinine 0.81 Estim Creat Clear Calc 63.53 Est GFR (MDRD) Af Amer 95 Est GFR (MDRD) Non-Af 79 BUN/Creatinine Ratio 14.8 Glucose 102 Calcium 9.6 Troponin I High Sens 4 12/29/22 13:40 WBC RBC Hgb Hct MCV MCH MCHC RDW Std Deviation RDW Coeff of Rosa Plt Count MPV Immature Gran % (Auto) Neut % (Auto) Lymph % (Auto) [place] % (Auto) Eos % (Auto) Baso % (Auto) Absolute Neuts (auto) Absolute Lymphs (auto) Nucleated RBC % D-Dimer Quant (PE/DVT) Sodium Potassium Chloride Carbon Dioxide Anion Gap BUN Creatinine Estim Creat Clear Calc Est GFR (MDRD) Af Amer Est GFR (MDRD) Non-Af BUN/Creatinine Ratio Glucose Calcium Troponin I High Sens 4 Radiography Diagnostic Testing: Clinical Impression(s) from Imaging Studies Chest X-Ray 12/29/22 11:20 IMPRESSION: Normal x-ray examination of the chest. Electronically Signed: Ron Luong MD at 12:16 EDT , ED attending interpretation shows normal heart size, no acute infiltrate, edema, or effusion. EKG Initial EKG: Attestation: I personally reviewed and interpreted this EKG as follows: Interpretation: Sinus Rhythm and No Acute Injury Pattern Comments: ED attending interpretation of EKG is normal sinus rhythm with no ectopy or ischemic changes, 63 bpm <Dr. Mckay Chambers, DO - Last Filed: 12/29/22 14:19> MDM MDM Narrative Medical decision making narrative: History gathered from: Patient and family Patient in 1 week of transient midsternal chest tightness became worse today lasting about 3 hours of presentation. Also feels lightheaded. She appears well and nontoxic and is afebrile with normal vital signs. Heart is regular rate and rhythm with no murmurs, lungs clear, abdomen soft and nontender. Cardiac work-up was ordered and she was given aspirin. EKG is sinus rhythm with no ischemic changes and troponin x2 negative. D-dimer negative. Basic labs unremarkable and CXR shows no acute process. Since she had no improvement after nitro and cardiac work-up is negative I do not think this is ACS. GI cocktail was trialed but did not really help either. Patient states she did not want to try anything else just is comfortable going home and following up with her primary care doctor. She was told to return for worsening symptoms and was discharged in stable condition. I have personally performed a face to face assessment of the patient and have reviewed the BETO Note. I performed a substantive portion of the visit including all aspects of the following. My dean findings include: History is [patient presents with chest discomfort off and on for about a week. Patient describes a retrosternal pressure or tightness and burning that is not associated with activity. Today she was at rest when she developed the discomfort and has been more continuous over the last 3 hours. She denies significant shortness of breath. She denies radiation of the pain. She had no diaphoresis or nausea or vomiting. Patient tells me her father had an UT in his 40s. Patient was told during her last checkup that she had cholesterol. She denies recent travel or surgery. No history of PE or DVT. No recent illness otherwise. Currently rates her discomfort as a 5 out of 10.] Exam is [HEENT-PERRLA, EOMI. Cranial nerves II through XII grossly intact. TMs clear. Mucous membranes moist. No adenopathy. Cardiovascular-regular rate and rhythm without murmur or ectopy Lungs-clear to auscultation, chest wall stable without crepitus or subcu emphysema Abdomen-normoactive bowel sounds, soft, nontender, no rebound or rigidity, no peritoneal signs. Extremities-intact ?4, normal range of motion, normal pulses, atraumatic] Medical Decison Making [patient presents with chest discomfort off and on for a week. Risk factors include family history as well as cholesterol and patient age. In the differential would be acute coronary syndrome versus PE versus other etiology such as GERD. EKG obtained on arrival showed a sinus rhythm with no acute ST segment changes. Patient will be given aspirin and nitroglycerin. D-dimer and cardiac work-up initiated.] Patient's work-up essentially unremarkable. She had normal EKG and normal troponin x2. D-dimer was normal. Chest x-ray was normal. Nitro did not help her pain and GI cocktail did not seem to make much difference. At this point etiology of her pain unclear although her heart score is a 2 and I have low index of suspicion for coronary syndrome or cardiac etiology of her pain. Patient is comfortable going home and following up with her primary care physician. We will start her on Prevacid for 2 weeks. Patient advised to return if worsening pain, exertional dyspnea, exertional chest pain, or condition should worsen anyway. Other additions or changes: [None] Lab Data Labs: Laboratory Results - last 24 hr 12/29/22 12/29/22 12/29/22 11:30 11:30 11:30 WBC 8.5 RBC 4.47 Hgb 12.8 Hct 38.6 MCV 86.4 MCH 28.6 MCHC 33.2 RDW Std Deviation 46.5 H RDW Coeff of Rosa 14.6 Plt Count 250 MPV 10.5 Immature Gran % (Auto) 0.400 Neut % (Auto) 40.8 L Lymph % (Auto) 42.5 H [place] % (Auto) 9.5 Eos % (Auto) 6.0 H Baso % (Auto) 0.8 Absolute Neuts (auto) 3.5 Absolute Lymphs (auto) 3.62 Nucleated RBC % 0 D-Dimer Quant (PE/DVT) 0.35 Sodium 141 Potassium 3.9 Chloride 107 Carbon Dioxide 27.0 Anion Gap 7 BUN 12 Creatinine 0.81 Estim Creat Clear Calc 63.53 Est GFR (MDRD) Af Amer 95 Est GFR (MDRD) Non-Af 79 BUN/Creatinine Ratio 14.8 Glucose 102 Calcium 9.6 Troponin I High Sens 4 12/29/22 13:40 WBC RBC Hgb Hct MCV MCH MCHC RDW Std Deviation RDW Coeff of Rosa Plt Count MPV Immature Gran % (Auto) Neut % (Auto) Lymph % (Auto) [place] % (Auto) Eos % (Auto) Baso % (Auto) Absolute Neuts (auto) Absolute Lymphs (auto) Nucleated RBC % D-Dimer Quant (PE/DVT) Sodium Potassium Chloride Carbon Dioxide Anion Gap BUN Creatinine Estim Creat Clear Calc Est GFR (MDRD) Af Amer Est GFR (MDRD) Non-Af BUN/Creatinine Ratio Glucose Calcium Troponin I High Sens 4 Radiography Diagnostic Testing: Clinical Impression(s) from Imaging Studies Chest X-Ray 12/29/22 11:20 IMPRESSION: Normal x-ray examination of the chest. Electronically Signed: Ron Luong MD at 12:16 EDT Reading Location ID and State: [facility] , Service support , Discharge Plan Triage Chief Complaint: Chest Pain ED Midlevel Provider: Amira Garcia ED Provider: Mckay Chambers Dx/Rx/DC Orders Clinical Impression: Chest pain Instructions: Chest Pain [facility] Prescriptions: No Action montelukast [Singulair] 10 mg tablet 10 mg PO DAILY albuterol sulfate 90 mcg/actuation HFA aerosol inhaler 1 - 2 puff INHALATION PRN PRN (Reason: Shortness Of Breath) fluticasone propionate 110 mcg/actuation HFA aerosol inhaler 1 - 2 puff INHALATION BID PRN (Reason: asthma) [id number]-capryl 100 mg-150 mg- 50 mg-150 mg capsule PO Estroven 155 mg capsule PO valacyclovir 1 gram tablet 1,000 mg PO DAILY PRN (Reason: prn outbreaks) 5 Days Qty: 20 1RF multivitamin 1 EACH tablet 1 ea PO DAILY Primary Care Provider: Ras Mukherjee Referrals: Ras Mukherjee DO [Primary Care Provider] - Activity Restrictions/Additional Instructions: Today all of your blood test and chest x-ray look normal. No sign of heart attack or blood clot. Not sure what the cause of your pain is but do not think it is life-threatening at this time and I recommend you follow-up with your primary care doctor next week. Return for worsening symptoms. Disposition Disposition: Home, Self Care Discharge Date/Time: 12/29/22 14:17
[2022-12-29] MEDS: Aspirin 325 MG Tablet PO (11:35)
[2022-12-29 11:39] LABS: Absolute Lymphocyte Count 3.62 X10^3/uL (0.83-4.51); Absolute Neutrophil Count 3.5 X10^3/uL (2.0-7.7); Basophil# 0.07 X10^3/uL; Basophil% 0.8 % (0-1); Eosinophil# 0.51 X10^3/uL; Hematocrit 38.6 % (37-47); Hemoglobin 12.8 g/dL (12.0-15.0); Lymphocyte # 3.62 X10^3/ul (0.83-4.51); Lymphocyte % 42.5 % (19-41); Mean Corp Hgb Conc 33.2 g/dL (32-36); Mean Corpuscular Hgb 28.6 pg (27.0-32.0); Mean Corpuscular Volume 86.4 fL (81-99); Mean Platelet Vol. 10.5 fl (6.2-12.0); Monocyte# 0.81 X10^3/uL; Monocyte% 9.5 % (0-10); NRBC Flagged by Analyzer 0 % (0-5); Neutrophil # 3.48 X10^3/uL (2.7-7.7); Neutrophil % 40.8 % (47-70); Platelet Count 250 K/mm3 (150-450); RBC Distribution Width CV 14.6 % (11.6-14.6); RBC Distribution Width SD 46.5 fl (35.1-43.9); Red Blood Count 4.47 M/mm3 (4.2-5.4); White Blood Count 8.5 K/mm3 (4.4-11.0)
[2022-12-29] MEDS: Nitroglycerin SL (ED/IMG/CATH) 0.4 MG TABLET SL ×3 (11:44→11:54)
[2022-12-29 11:50] LABS: D-Dimer Quantitative (DVT/PE) 0.35 FEU/ug/m (0.27-0.49)
[2022-12-29 12:05] LABS: Anion Gap 7 (5-15); BUN 12 mg/dL (7-18); BUN/Creat Ratio 14.8 RATIO (10-20); Calcium,Total 9.6 mg/dL (8.5-10.1); Chloride 107 mmol/L (98-107); Creatinine, Serum 0.81 mg/dL (0.55-1.02); EST Glomerular Filtration Rate 79 mL/min (>60); Est Glom Filt Rate - Afr Amer 95 mL/min (>60); Estimated Creatinine Clearance 63.53 ml/min; Glucose 102 mg/dL (74-106); Potassium 3.9 mmol/L (3.5-5.1); Sodium Level 141 mmol/L (136-145); Troponin-I HS (w/2H Reflex) 4 pg/mL (3.0-54.0)
[2022-12-29] MEDS: Mag Hydrox/Al Hydrox/Simeth 30 ML UDC PO (12:39)
[2022-12-29 14:04] LABS: Troponin-I HS 4 pg/mL (3.0-54.0)
== END 2022-12-29 14:17 | disposition home or self-care (01) ==
PROVIDERS: Physician Assistant; Emergency Provider Emergency Medicine; PCP Student in an Organized Health Care Education/Training Program; Visit Provider Emergency Medicine
DX: R07.9 Chest pain, unspecified (principal); J45.909 Unspecified asthma, uncomplicated; Z79.899 Other long term (current) drug therapy; Z79.51 Long term (current) use of inhaled steroids
CPT/HCPCS: 36415; 71045; 80048; 84484; 85025; 85379; 87811; 93005; 99285; A4216

== ENCOUNTER → 2023-02-05 | Outpatient (CLI) | payer OTHER, SELFPAY | END | disposition home or self-care (01) | PROVIDERS: PCP Student in an Organized Health Care Education/Training Program; Referring Provider Nurse Practitioner Acute Care; Visit Provider Nurse Practitioner Acute Care | DX: G47.33 Obstructive sleep apnea (adult) (pediatric) (principal) | CPT/HCPCS: 95810 ==

== ENCOUNTER → 2023-10-20 | Outpatient (CLI) | payer OTHER, SELFPAY ==
--- NOTE | 2023-10-20 15:14 | BI_ITS ---
MAMMOGRAPHY - BILATERAL SCREENING REASON FOR EXAM: Female, 53 years old. Routine annual screening examination. PERTINENT HISTORY: Aunt with breast cancer. History of prior left excisional breast biopsy. TECHNIQUE: Digital bilateral breast shannan (3D mammographic acquisition) in the CC and MLO projections. 2-D mediolateral oblique (MLO) and craniocaudad (CC) views of both breasts were obtained. CAD: Full Field Digital Mammography with Computer Added Detection was performed. COMPARISON: Comparison is made with prior study October 16, 2022 and October 08, 2021. FINDINGS: Breast Composition: The breasts are heterogeneously dense, which may obscure small masses. There are no dominant masses or suspicious calcifications. Stable appearance of the bilateral breast implants. Stable small benign-appearing bilateral axillary lymph nodes. No other significant abnormalities are identified. There has been no significant change since the prior study. BI/SCRN MAMM (CAD)W/SHANNAN BILAT IMPRESSION: Stable bilateral screening mammogram. Yearly follow-up mammogram recommended. (A) ASSESSMENT CATEGORY: BIRADS Category 2: Benign. A letter regarding these results will be sent to the patient by the facility within 30 days. Approximately 10% of breast cancers are not detected by mammography. A normal mammogram should not delay biopsy of a clinically suspicious abnormality. [id number] Electronically Signed: Roland Goyal MD at 8:11 EDT ,
== END | disposition home or self-care (01) ==
LOC: OPBI 15:14
PROVIDERS: PCP Student in an Organized Health Care Education/Training Program; Referring Provider Nurse Practitioner Women's Health; Visit Provider Nurse Practitioner Women's Health
DX: Z12.31 Encounter for screening mammogram for malignant neoplasm of breast (principal); Z80.3 Family history of malignant neoplasm of breast
CPT/HCPCS: 77063; 77067

== ENCOUNTER → 2024-06-23 | Outpatient (CLI) | payer OTHER, SELFPAY ==
--- NOTE | 2024-06-23 09:34 | BI_ITS ---
MAMMOGRAPHY - UNILATERAL DIAGNOSTIC: RIGHT BREAST REASON FOR EXAM: Female, 53 years old. Right lateral breast pain. PERTINENT HISTORY: Aunt with breast cancer. TECHNIQUE: Digital unilateral breast swetha (3D mammographic acquisition) in the CC and MLO projections. 2-D mediolateral oblique (MLO) and craniocaudad (CC) views of both breasts were obtained. CAD: Full Field Digital Mammography with Computer Added Detection was performed. COMPARISON: Comparison is made with prior study October 20, 2023 and October 16, 2022. FINDINGS: Breast Composition: The breasts are heterogeneously dense, which may obscure small masses. There are no dominant masses or suspicious calcifications. Stable appearance of the bilateral breast implants. Stable fat-containing bilateral axillary lymph nodes. No other significant abnormalities are identified. There has been no significant change since the prior study. BI/DIAG MAMM W/CAD, UNILAT IMPRESSION: Stable unilateral diagnostic mammogram. One year follow-up mammogram recommended. (A) ASSESSMENT CATEGORY: BIRADS Category 2: Benign. A letter regarding these results will be sent to the patient by the facility within 30 days. Approximately 10% of breast cancers are not detected by mammography. A normal mammogram should not delay biopsy of a clinically suspicious abnormality. Electronically Signed: Roland Goyal MD at 11:32 EST ,
--- NOTE | 2024-06-23 09:34 | US_ITS ---
STUDY: ULTRASOUND BREAST - RIGHT REASON FOR EXAM: Female, 54 years old. Right breast swelling and firmness. History of breast implants. TECHNIQUE: Axial and longitudinal images of the RIGHT breast were performed with a high resolution ultrasound transducer. # OF IMAGES: 64 COMPARISON: Comparison is made with prior mammogram done earlier in the day. FINDINGS: RIGHT Breast: The lateral half of the right breast was examined with ultrasound. Incidental note is made of dilated ducts. No other abnormality is seen. US/Breast Limited Unilateral IMPRESSION: Dilated ducts. Right breast implant. ASSESSMENT CATEGORY: BIRADS Category 2: Benign. A letter regarding these results will be sent to the patient by the facility within 30 days. Electronically Signed: Roland Goyal MD at 13:47 EST ,
== END | disposition home or self-care (01) ==
PROVIDERS: PCP Student in an Organized Health Care Education/Training Program; Referring Provider Nurse Practitioner Women's Health; Visit Provider Nurse Practitioner Women's Health
DX: N64.4 Mastodynia (principal); N63.0 Unspecified lump in unspecified breast
CPT/HCPCS: 76642; 77061; 77065; G0279

== ENCOUNTER → 2024-10-20 | Outpatient (CLI) | payer OTHER, SELFPAY ==
--- NOTE | 2024-10-20 07:22 | BI_ITS ---
PROCEDURE: SCREENING MAMM (CAD), BILAT REASON FOR EXAM: F, Age 54 y/o , SCREENING. Family history of breast cancer in a maternal aunt in her 60s and a maternal cousin in her 30s. TECHNIQUE: Bilateral screening digital breast tomosynthesis with 2D and 3D images. Computer aided detection. COMPARISON: 06/23/2024, 10/20/2023 FINDINGS: The breasts are heterogeneously dense which may obscure small masses. The mammogram demonstrates that the patient has dense breasts. Supplemental screening with whole breast ultrasound or MRI may be considered for further evaluation. There are bilateral prepectoral silicone breast implants. No suspicious masses, areas of developing architectural distortion, or suspicious calcifications. BI/SCREENING MAMM (CAD), BILAT IMPRESSION: There is no mammographic evidence of malignancy. BI-RADS 1: NEGATIVE. RECOMMEND ANNUAL MAMMOGRAPHIC SCREENING. Follow-up code: Routine Follow-up The patient will be notified of the results by letter. Reading Location: [id number]
== END | disposition home or self-care (01) ==
PROVIDERS: PCP Student in an Organized Health Care Education/Training Program; Referring Provider Nurse Practitioner Women's Health; Visit Provider Nurse Practitioner Women's Health
DX: Z12.31 Encounter for screening mammogram for malignant neoplasm of breast (principal); Z80.3 Family history of malignant neoplasm of breast
CPT/HCPCS: 77067